=== PATIENT | female | born 1935 | race Asian ===

== ENCOUNTER 2020-08-04 09:44 | Inpatient (IN) | payer MEDICARE, OTHER, SELFPAY ==
[2020-08-04] VITALS (25 sets, daily range): BP systolic 108–179; BP diastolic 55–80; PULSE 55–78; RESP 14–27; TEMP 36.3–36.8; O2SAT 92–98; BMI 20.5
--- NOTE | 2020-08-04 | SCC_ITS ---
Procedure Done: Perc pinnine right hip 79.8 seconds of fluoroscopic guidance, for a cumulative dose of 7.52 mGy, was provided to Dr. Kaye by the radiology department. C-arm images of the RIGHT hip were saved for the patient's permanent record. GLADYS
--- NOTE | 2020-08-04 09:51 | ED_ITS ---
HPI - Fall General: Chief Complaint: Fall Stated Complaint: RIGHT SIDE PAIN POST GROUND LEVEL FALL Time Seen by Provider: 08/04/20 09:47 History of Present Illness: HPI Narrative: 85yo presents emergency room via EMS complaining of right hip pain. She fell last night her put her back into bed she has right groin and hip pain, right side pain since then. She is unable to bear weight or walk. EMS had bound her pelvis with a sheet prior to arrival. She denies striking her head she denies loss of consciousness. MD complaint: fall Onset (ago): hour(s) Fall from: standing Fall witnessed: yes, by family Place fall occurred: home Loss of consciousness: None Prolonged down time: unclear Context: history of frequent falls Location of injury: other (Left hip) Severity: severe Quality: sharp Associated symptoms-after fall: Denies abdominal pain, chest pain, confusion, difficulty walking, headache(s), hematuria, lightheadedness, neck pain, numbness, short of breath, vertigo or weakness Review of Systems Const: Denies: fever(s), chills, body aches, change in appetite, fatigue or malaise ENMT: Denies: throat pain, ear or mastoid pain, nasal discharge or nasal congestion Card: Denies: chest pain or lightheadedness Resp: Denies: dyspnea, productive cough or non-productive cough GI: Denies: abdominal pain : Denies: hematuria Musc: Denies: neck pain Skin/Breast: Denies: rash or pruritus Neuro: Denies: headache(s), difficulty walking, vertigo or confusion Physical Exam Const: COMMON NORMALS: no acute distress GENERAL APPEARANCE: cooperative and comfortable HENMT: COMMON NORMALS: normocephalic, atraumatic, hearing grossly normal bilaterally, external ears normal, EAC's normal, TM's normal bilaterally, Normal nasal mucous membranes and turbinates present, moist oral mucous membranes and oropharynx normal HEAD & SCALP: normocephalic and atraumatic NOSE: Normal nasal mucous membranes and turbinates present EXTERNAL EAR: Yes external ears normal EXTERNAL AUDITORY CANAL: EAC's normal TYMPANIC MEMBRANE: TM's normal bilaterally Eye: COMMON NORMALS: Equal, round and reactive pupils present, EOMs intact bilaterally, conjunctivae normal and no scleral icterus CONJUNCTIVA: Yes conjunctivae normal PUPIL: Yes Equal, round and reactive pupils present Neck/C-Spine: COMMON NORMALS: full ROM, no lymphadenopathy, supple and no JVD Lymph: LYMPHATIC: no lymphadenopathy noted and no lymphedema noted Resp: COMMON NORMALS: normal respiratory effort, No retractions, No use of accessory muscles and clear to auscultation bilaterally AUSCULTATION: clear to auscultation bilaterally Cardio: COMMON NORMALS: no JVD, regular rate, regular rhythm and No murmurs present (Cardio) RATE: regular rate RHYTHM: regular rhythm GI: COMMON NORMALS: Soft to palpation and No hepatosplenomegaly present AUSCULTATION: Yes normoactive bowel sounds PALPATION: Yes Soft to palpation, No Tenderness to palpation present (GI), No Guarding due to palpation present (GI) and Yes No hepatosplenomegaly present Extremity: COMMON NORMALS: normal to inspection, capillary refill normal, no clubbing, cyanosis or edema, no calf tenderness and no pedal edema Skin: COMMON NORMALS: no rashes or lesions noted GENERAL SKIN EXAM: no rashes or lesions noted Course Vital Signs: Vital signs: Vital Signs Temperature 98.2 F 08/04/20 11:56 Pulse Rate 70 08/04/20 11:56 Respiratory Rate 19 H 08/04/20 11:56 Blood Pressure 157/57 08/04/20 11:56 Pulse Oximetry 94 08/04/20 11:56 MDM - Fall MDM Narrative: Medical decision making narrative: Patient has transcervical fracture will admit. Chest x-ray shows what appears to be reticular-like interstitial changes we will swab her for Covid to be sure she has no Covid symptoms at this time. To be given IV fluids consult hospitalist and also discussed Dr. Kaye orders written Lab Data: Labs: Lab Results 08/04/20 08/04/20 08/04/20 Range/Units 10:16 10:16 11:05 WBC 5.3 (4.0-10.0) 10^3/ uL RBC 3.40 L (4.1-5.3) 10^6/u L Hgb 10.9 L (11.5-15.3) g/dL Hct 32.1 L (37.0-47.0) % MCV 94.4 (81-99) fL MCH 32.1 (28.0-34.0) pg MCHC 34.0 (30.0-36.0) g/dL RDW 11.5 L (12.1-15.1) % Plt Count 183 (130-400) 10^3/c mm MPV 10.7 H (7.4-10.4) fL Neut % (Auto) 67.1 % Lymph % (Auto) 19.3 % [place] % (Auto) 12.8 % Eos % (Auto) 0.0 % Baso % (Auto) 0.2 % Neut # (Auto) 3.58 (1.8-7.7) 10^3/u L Lymph # (Auto) 1.0 (0.8-4.8) 10^3/u L [place] # (Auto) 0.7 (0.2-0.9) 10^3/u L Eos # (Auto) 0.0 (0.0-0.8) 10^3/u L Baso # (Auto) 0.0 (0.0-0.1) 10^3/u L Nucleated RBC % (a uto) 0 % Nucleated RBCs # 0.0 /100WBC Sodium Cancelled Cancelled Potassium Cancelled Cancelled Chloride Cancelled Cancelled Carbon Dioxide Cancelled Cancelled Anion Gap Cancelled Cancelled BUN Cancelled Cancelled Creatinine Cancelled Cancelled GFR Calculation Cancelled Cancelled Glucose Cancelled Cancelled Calculated Osmolal ity Cancelled Cancelled Calcium Cancelled Cancelled Total Bilirubin Cancelled Cancelled AST Cancelled Cancelled ALT Cancelled Cancelled Alkaline Phosphata se Cancelled Cancelled Creatine Kinase Cancelled Cancelled Total Protein Cancelled Cancelled Albumin Cancelled Cancelled Globulin Cancelled Cancelled Urine Color (Yellow) Urine Appearance (CLEAR) Urine pH (5-7) Ur Specific Gravit y (1.005-1.030) Urine Protein (Negative) Urine Glucose (UA) (Normal) Urine Ketones (Negative) Urine Blood (Negative) Urine Nitrate (Negative) Urine Bilirubin (Negative) Urine Urobilinogen (Negative) mg/dL Ur Leukocyte Erika ase (Negative) Urine RBC (0-2) /hpf Urine WBC (0-5) /hpf Ur Squamous Epith Cells (0-5) /hpf Amorphous Sediment Urine Bacteria (NONE) /hpf 08/04/20 Range/Units 11:05 WBC (4.0-10.0) 10^3/ uL RBC (4.1-5.3) 10^6/u L Hgb (11.5-15.3) g/dL Hct (37.0-47.0) % MCV (81-99) fL MCH (28.0-34.0) pg MCHC (30.0-36.0) g/dL RDW (12.1-15.1) % Plt Count (130-400) 10^3/c mm MPV (7.4-10.4) fL Neut % (Auto) % Lymph % (Auto) % [place] % (Auto) % Eos % (Auto) % Baso % (Auto) % Neut # (Auto) (1.8-7.7) 10^3/u L Lymph # (Auto) (0.8-4.8) 10^3/u L [place] # (Auto) (0.2-0.9) 10^3/u L Eos # (Auto) (0.0-0.8) 10^3/u L Baso # (Auto) (0.0-0.1) 10^3/u L Nucleated RBC % (a uto) % Nucleated RBCs # /100WBC Sodium Potassium Chloride Carbon Dioxide Anion Gap BUN Creatinine GFR Calculation Glucose Calculated Osmolal ity Calcium Total Bilirubin AST ALT Alkaline Phosphata se Creatine Kinase Total Protein Albumin Globulin Urine Color Yellow (Yellow) Urine Appearance Sl hazy (CLEAR) Urine pH 5 (5-7) Ur Specific Gravit y 1.020 (1.005-1.030) Urine Protein 2+ H (Negative) Urine Glucose (UA) Norm (Normal) Urine Ketones 1+ H (Negative) Urine Blood Neg (Negative) Urine Nitrate Negative (Negative) Urine Bilirubin Neg (Negative) Urine Urobilinogen Norm (Negative) mg/dL Ur Leukocyte Erika ase Trace H (Negative) Urine RBC None (0-2) /hpf Urine WBC 25-40 H (0-5) /hpf Ur Squamous Epith Cells Rare (0-5) /hpf Amorphous Sediment Not Reportable Urine Bacteria 3+ H (NONE) /hpf Discharge Plan Discharge Patient Disposition: Admitted As Inpatient Admit Provider: Seth Womack Clinical Impression: Femur fracture, right, Hypertension, UTI (urinary tract infection), Emphysema lung, Hyperkalemia, COVID-19 Condition: Stable Coding Level of Care Code ED Studio Technician for Michel Hernandez
--- NOTE | 2020-08-04 09:55 | XRR_ITS ---
PROCEDURE INFORMATION: Exam: XR Chest, 1 View Exam date and time: 08/04/2020 10:34 AM Age: 85 years old Clinical indication: Injury or trauma; Fall; Blunt trauma (contusions or hematomas); Additional info: Dyspnea/cough TECHNIQUE: Imaging protocol: XR of the chest Views: 1 view. COMPARISON: No relevant prior studies available. FINDINGS: Lungs: Mildly increased interstitial markings diffusely with suspected underlying emphysema. No focal consolidation. Pleural space: No evidence of pleural effusion or pneumothorax. Heart/Mediastinum: Normal mediastinal contours. No cardiomegaly. Bones/joints: Unremarkable. XR/XR chest 1V portable [id number] IMPRESSION: Mild diffusely increased interstitial markings with suspected underlying emphysema. Superimposed mild infectious or inflammatory airways process not excluded. No consolidation or other acute abnormality appreciated.
--- NOTE | 2020-08-04 09:55 | XRR_ITS ---
PROCEDURE INFORMATION: Exam: XR Right Hip with Pelvis when Performed Exam date and time: 08/04/2020 10:34 AM Age: 85 years old Clinical indication: Injury or trauma; Fall; Blunt trauma (contusions or hematomas); Right; Hip; Additional info: Pain/fall - with pelvis TECHNIQUE: Imaging protocol: XR Right hip with pelvis when performed. Views: 2 or 3 views. COMPARISON: CT Abdomen/Pelvis Renal [id number] 07/13/2016 2:21 PM FINDINGS: Bones/joints: Acute appearing nondisplaced transverse fracture of the right femoral neck. Bones otherwise appear intact. No dislocation. Soft tissues: Unremarkable. XR/XR hip RT 2-3V wo/w pel* [id number] IMPRESSION: Acute nondisplaced right femoral neck fracture.
[2020-08-04 10:25] LABS: Basophils % 0.2 %; Hematocrit 32.1 % (37.0-47.0); Hemoglobin 10.9 g/dL (11.5-15.3); Lymphocytes % 19.3 %; Mean Corpuscular Hemoglobin 32.1 pg (28.0-34.0); Mean Corpuscular Volume 94.4 fL (81-99); Mean Platelet Volume 10.7 fL (7.4-10.4); Monocytes # 0.7 10^3/uL (0.2-0.9); Monocytes % 12.8 %; Neutrophils # 3.58 10^3/uL (1.8-7.7); Neutrophils % 67.1 %; Nucleated Red Blood Cells % 0 %; Platelet Count 183 10^3/cmm (130-400); Red Cell Distribution Width 11.5 % (12.1-15.1); White Blood Count 5.3 10^3/uL (4.0-10.0)
--- NOTE | 2020-08-04 11:05 | ECG_ITS ---
[facility] Test Date: 2020-08-04 Pat Name: Mira Nicholas Department: Room: 202 Gender: Female [employer] Operator: : [id number] Requested By: Monster Worley Order Number: [id number] Reading MD: DONTAE PARKS Measurements Intervals [place] Rate: 74 P: -30 CA: 145 QRS: -4 QRSD: 69 T: 37 QT: 396 QTc: 442 Interpretive Statements SINUS RHYTHM LOW QRS VOLTAGE IN PRECORDIAL LEADS [QRS DEFLECTION < 1.0 mV IN CHEST LEADS] PATTERN CONSISTENT WITH PULMONARY DISEASE Compared to ECG 07/13/2016 15:49:45 Low QRS voltage now present Ventricular premature complex(es) no longer present Electronically Signed On 08-04-2020 18:16:04 WARDROBE MISTRESS by DONTAE PARKS [id number]
[2020-08-04] MEDS: sodium chloride 0.9% 1,000 ML 999 ML IV (11:06)
[2020-08-04 11:31] LABS: Add Urine Microscopic? YES; Bilirubin Urine Neg (Negative); Blood Urine Neg (Negative); Glucose Urine UA Norm (Normal); Ketones Urine 1+ (Negative); Leukocyte Esterase Urine Trace (Negative); Nitrate Urine Negative (Negative); Protein Urine 2+ (Negative); Urine Appearance SL Hazy (CLEAR); Urine Color Yellow (Yellow); Urobilinogen Urine Norm (Negative); pH Urine 5 (5-7)
[2020-08-04 11:35] LABS: Add Urine Culture? Yes; Bacteria Urine 3+ /hpf; Squamous Epithelial Cell Urine RARE /hpf (0-5); WBC Urine 25-40 /hpf (0-5)
--- NOTE | 2020-08-04 11:44 | PM.HP ---
Providers/Chief Complaint Primary Care Provider: Dena Bro, AUTOMOBILE RENTAL AGENT-C Chief Complaint: RIGHT SIDE PAIN POST GROUND LEVEL FALL History of Present Illness Mira Nicholas is a 85 year old female with PMH of HTN was brought inby the after experiencing a fall Night.She was going to bathroom when she slipped and fell, she never felt dizzy, or lost copiousness.Post fall she is having rt groin pain.She deny any other complain. Upon arrival in the ER she was worked up for the above mentioned. XR Right Hip with Pelvis : Acute nondisplaced right femoral neck fracture Xray chest : Mild diffusely increased interstitial markings with suspected underlying emphysema. Superimposed mild infectious or inflammatory airways process not excluded. Urine analysis :Dirty. Er.Attending has notified . Review of Systems Const: Denies: fever(s), chills or diaphoresis Card: Denies: palpitations or edema Resp: Denies: dyspnea, productive cough or pain on inspiration GI: Denies: abdominal pain, nausea, vomiting, diarrhea or constipation Neuro: Denies: headache(s) Medications/Allergies Home Medications Medication Instructions Recorded Confirmed Last Taken Type amlodipine-benazepril See Rx Instructions .ROUTE .COMPLEX 08/04/20 08/04/20 Unknown History coenzyme Q10 [CoQ-10] 100 mg PO DAILY 08/04/20 08/04/20 Unknown History latanoprost 1 drp OPHTHALMIC (EYE) QPM 08/04/20 08/04/20 Unknown History magnesium 1 tab PO DAILY 08/04/20 08/04/20 Unknown History timolol maleate 1 drp OPHTHALMIC (EYE) BID 08/04/20 08/04/20 Unknown History Allergies Allergy/AdvReac Type Severity Reaction Status Date / Time No Known Allergies Allergy Verified 08/04/20 11:52 Vitals/I&O/Wt Last Vital Signs Temp 98.2 F 08/04/20 11:38 Pulse 70 08/04/20 11:38 Resp 19 H 08/04/20 11:38 BP 157/57 08/04/20 11:38 Pulse Ox 94 08/04/20 11:38 Weight last 48 hrs Weight 47.627 kg Physical Exam Const: COMMON NORMALS: patient oriented x3 HENMT: COMMON NORMALS: normocephalic and atraumatic HEAD & SCALP: atraumatic Chest: CHEST: Yes Symmetrical chest wall rise Resp: COMMON NORMALS: normal respiratory effort, No retractions and clear to auscultation bilaterally EFFORT & INSPECTION: Yes symmetric chest movement AUSCULTATION: clear to auscultation bilaterally Cardio: COMMON NORMALS: regular rate, regular rhythm, S1 normal heart sound present, S2 normal heart sound present, No gallops present (Cardio), No murmurs present (Cardio), No rub (Cardio) and Peripheral pulses 2+ throughout RATE: regular rate RHYTHM: regular rhythm HEART SOUNDS: S1 normal heart sound present and S2 normal heart sound present PERIPHERAL PULSES: Peripheral pulses 2+ throughout GI: COMMON NORMALS: Normal to inspection, nondistended, normoactive bowel sounds present, Soft to palpation, non-tender, No hepatosplenomegaly present and no masses AUSCULTATION: Yes normoactive bowel sounds PALPATION: Yes Soft to palpation and Yes No hepatosplenomegaly present RECTAL EXAM: deferred Extremity: COMMON NORMALS: no clubbing, cyanosis or edema and no pedal edema NARRATIVE EXTREMITY EXAM: Rt hip and groin tenderness Present, Rt thigh externally and laterally rotated Neuro: COMMON NORMALS: patient oriented x3 Urinary Catheter Management^: Dillard: Cath Placed During This Visit: yes Urinary Catheter Date of Insertion: 08/04/20 Urinary Catheter Time of Insertion: 10:40 Data : 08/04/20 10:16 08/04/20 11:33 CXR: I personally reviewed and interpreted this imaging study as follows: My impression: Chronic changes in line with emphysema as well as diffusely increased interstitial marking. Xray Ortho: I personally reviewed and interpreted this imaging study as follows: My impression: XR Right Hip with Pelvis : Non displaced rt femoral neck fracture A&P Assessment and plan (1) Femur fracture, right: XR Right Hip with Pelvis : Acute nondisplaced right femoral neck fracture. Pain control Ortho Consult Status: Acute (2) Hypertension: Continue Amlodipine 5 mg po daily Status: Acute (3) UTI (urinary tract infection): Continue Cef 1 gm q24 h daily Urine culture Status: Acute (4) Emphysema lung: Status: Acute Additional A&P Information DVT PPX: Lovenox 40 sc daily Code status :Full code Disposition :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
--- NOTE | 2020-08-04 11:53 | PC.PHAR ---
PT STATES SHE TAKES CARE OF HER OWN MEDICATIONS-PT STATES SHE IS SUPPOSE TO BE TAKING THE AMLODIPINE-BENAZEPRIL DAILY BUT STATES SHE ONLY TAKES PRN-PT STATES SHE LAST TOOK SOMETIME LAST WEEK-[facility] F[facility] [place] FOR BID AND HAS RX ON HOLD FROM [place] FOR ONCE A DAY-PT STATES SHE USES BOTH HER EYE DROPS ONLY IN THE PM-[facility] FILLED THE LATANOPROST 1 DROP QPM AND THE TIMOLOL FOR 1 DROP BID
[2020-08-04 12:13] LABS: Alanine Aminotransferase 11 U/L (0-33); Alkaline Phosphatase 75 IU/L (35-105); Blood Urea Nitrogen 37 mg/dL (8-23); Calcium 8.6 mg/dL (8.5-10.5); Carbon Dioxide 15 mmol/L (22-29); Chloride 102 mmol/L (98-107); Creatine Phosphokinase 134 U/L (26-192); Globulin 3.7 g/dL (1.3-4.6); Glucose 114 mg/dL (65-115); Osmolality Calculated 280 mOsm/kg (285-295); Sodium 130 mmol/L (136-145); Total Bilirubin 0.6 mg/dL (0.15-1.2); Total Protein 6.7 g/dL (6.6-8.7)
[2020-08-04 12:21] LABS: SARS Covid-2 Antigen Positive (Negative)
[2020-08-04 12:23] LABS: Anion Gap 18.3 (5-19); Aspartate Amino Transferase 32 U/L (0-32)
[2020-08-04 12:24] LABS: Potassium 5.3 mmol/L (3.5-5.1)
[2020-08-04] MEDS: morphine 4 mg/mL SDV 1 mL 2 MG IVP (14:19)
[2020-08-04] MEDS: ondansetron 2 mg/ML SDV 2 mL 4 MG IVP (14:20)
[2020-08-04] MEDS: D5-NS 0.45% + KCL 20 mEq 20 MEQ/1,000 ML BAG 100 MEQ IV (14:26)
--- NOTE | 2020-08-04 14:30 | P.CONIM_ITS ---
Providers/Reason For Consult Consulting Physican/Specialty*: Bill Kaye MD Reason for Consult*: Right femoral neck fracture Attending Physician: Seth Womack MD Primary Care Provider: SONYA Cristobal History of Present Illness History of Present Illness Mira Nicholas is a 85 year old female who slipped and fell in the bathroom last night with resulting pain in her right hip. She denies any head injury or loss of consciousness. She denies any previous history of hip pain. Since admission a rapid Covid antibody test came back as negative and she has been moved from the floor to the Covid unit. Review of Systems Const: Denies: fever(s), chills or body aches Resp: Denies: dyspnea, productive cough or non-productive cough Meds/Allergies Home Medications and Allergies Home Medications Medication Instructions Recorded Confirmed Last Taken Type amlodipine-benazepril See Rx Instructions .ROUTE .COMPLEX 08/04/20 08/04/20 Unknown History coenzyme Q10 [CoQ-10] 100 mg PO DAILY 08/04/20 08/04/20 Unknown History latanoprost 1 drp OPHTHALMIC (EYE) QPM 08/04/20 08/04/20 Unknown History magnesium 1 tab PO DAILY 08/04/20 08/04/20 Unknown History timolol maleate 1 drp OPHTHALMIC (EYE) BID 08/04/20 08/04/20 Unknown History Allergies Allergy/AdvReac Type Severity Reaction Status Date / Time No Known Allergies Allergy Verified 08/04/20 11:52 Vitals/I&O/Wt Last Vital Signs Temp 98.2 F 08/04/20 11:56 Pulse 70 08/04/20 11:56 Resp 19 H 08/04/20 11:56 BP 157/57 08/04/20 11:56 Pulse Ox 94 08/04/20 11:56 Weight last 48 hrs Weight 105 lb Physical Exam Narrative: EXAM NARRATIVE: The patient is on our Covid unit. She is complaining of severe pain in the right and hip. She sits with her right hip and knee flexed in her knee abducted over her body. She has exquisite pain with motion of the right hip. She has a palpable right dorsalis pedis pulse. Her sensation is intact to light touch in the right foot and she will move her toes. He has no upper extremity or left lower extremity tenderness with palpation or motion. Urinary Catheter Management^: Dillard: Cath Placed During This Visit: yes Urinary Catheter Date of Insertion: 08/04/20 Urinary Catheter Time of Insertion: 10:40 Data Imaging^: Xray Ortho: My impression: Patient has a nondisplaced mid cervical femoral neck fracture. Her bones otherwise have a normal trabecular pattern. A&P Assessment and plan (1) Nondisplaced fracture of neck of left femur: I discussed options with the patient. I told her that I would suggest percutaneous pinning to control her pain. This will allow her to be mobilized particularly if Covid symptoms increase this would be beneficial. I told her without surgery she will have continued pain require pain medications. She would need prolonged periods of time in bed which could be difficult and combating infection. I told her even with successful pinning there is a risk of nonunion, and malunion. I discussed risk of avascular necrosis seen with nondisplaced fractures of could this is a further procedures. I discussed risk of the hardware that could, in the process of healing, become prominent and require removal. I discussed the possibility of a future hip arthroplasty. She understands all of these and agrees to surgery. We will proceed to the OR as a room is available today. Status: Acute Coding Level of Care Code Acute Search Marketing Coordinator for Michel Hernandez Diagnoses Nondisplaced fracture of neck of left femur S72.002A
[2020-08-04] MEDS: cefTRIAXone 1,000 MG in sodium chloride 0.9% (plus) 50 ML 100 MG IV (14:44)
[2020-08-04] MEDS: dexamethasone 4 mg/mL INJ 6 MG IVP (14:48)
[2020-08-04] MEDS: fentaNYL 50 mcg/mL INJ 2mL IVP ×2 (15:50→16:52)
--- NOTE | 2020-08-04 16:11 | ANES.PREANE2 ---
Pre-Anesthetic Assessment Pre-Anesthetic Assessment: Height/Weight: Height 1.52 m Weight 47.627 kg Temp Pulse Resp BP Pulse Ox 98.2 F 67 17 172/74 96 08/04/20 11:56 08/04/20 16:02 08/04/20 16:02 08/04/20 16:02 08/04/20 16:02 Preop Diagnosis: Right femoral neck fracture Proposed Procedure: Operation Date: 08/04/20 16:30 Proposed Procedures p ORIF Femur(Right) - Bill Kaye MD Familial anesthetic complications: none Was Beta Amy taken within 24 hours: N/A Last intake: NPO > 8 hrs Social: Social History: No alcohol and No tobacco Exam: Pre-Anes Outpt Exam: alert, oriented x 3, clear to auscultation bilaterally and regular rate & rhythm Airway: Cervical ROM: WNL MP: 3 Dentition: Partials Pulmonary: Comments: COVID 19 + emphysema CV/HEM: CV/HEM: HTN : : UTI Anesthetic Plan: ASA status: 3 Anesthesia: General Risk of > 500 ml blood loss (7ml/kg in children): No Meds/Allergies Current Medications: Current Medications Generic Name Dose Route Start Last Admin Trade Name Freq PRN Reason Stop Dose Admin Dexamethasone 6 mg 08/04/20 12:30 08/04/20 14:48 Dexamethasone 4 Mg/Ml Inj IVP 6 mg Q24H KAITLIN Administration Enoxaparin Sodium 40 mg 08/04/20 12:30 08/04/20 15:14 Enoxaparin 40 Mg /0.4 Ml Syringe SUBCUT Not Given Q24H KAITLIN Fentanyl 50 mcg 08/04/20 15:34 08/04/20 15:50 Fentanyl 50 Mcg/ Ml Inj 2ml IVP 25 mcg Q10M PRN Administration Preop Pain Ceftriaxone Sodium 1,000 mg/ 50 mls @ 100 mls/ hr 08/04/20 12:00 08/04/20 14:44 Sodium Chloride IV 100 mls/hr Q24H KAITLIN Administration Protocol Potassium Chloride /Dextrose/Sod Cl 20 meq in 1,000 m ls @ 100 mls/hr 08/04/20 13:40 08/04/20 14:26 D5-Ns 0.45% + Vaibhav l 20 Meq IV 100 mls/hr .Q10H KAITLIN Administration Morphine Sulfate 2 mg 08/04/20 13:40 08/04/20 14:19 Morphine 4 Mg/Ml Sdv 1 Ml IVP 2 mg Q4H PRN Administration SEVERE PAIN Ondansetron HCl 4 mg 08/04/20 13:40 08/04/20 14:20 Ondansetron 2 Mg /Ml Sdv 2 Ml IVP 4 mg Q6H PRN Administration NAUSEA AND VOMITI NG Data Anesthesia CBC & Chem 7: 08/04/20 10:16 08/04/20 11:33 Other Labs: Laboratory Results - last 48 hr 08/04/20 08/04/20 08/04/20 10:16 10:16 11:05 WBC 5.3 RBC 3.40 L Hgb 10.9 L Hct 32.1 L MCV 94.4 MCH 32.1 MCHC 34.0 RDW 11.5 L Plt Count 183 MPV 10.7 H Neut % (Auto) 67.1 Lymph % (Auto) 19.3 [place] % (Auto) 12.8 Eos % (Auto) 0.0 Baso % (Auto) 0.2 Neut # (Auto) 3.58 Lymph # (Auto) 1.0 [place] # (Auto) 0.7 Eos # (Auto) 0.0 Baso # (Auto) 0.0 Nucleated RBC % (auto) 0 Nucleated RBCs # 0.0 Sodium Cancelled Cancelled Potassium Cancelled Cancelled Chloride Cancelled Cancelled Carbon Dioxide Cancelled Cancelled Anion Gap Cancelled Cancelled BUN Cancelled Cancelled Creatinine Cancelled Cancelled GFR Calculation Cancelled Cancelled Glucose Cancelled Cancelled Calculated Osmolality Cancelled Cancelled Calcium Cancelled Cancelled Total Bilirubin Cancelled Cancelled AST Cancelled Cancelled ALT Cancelled Cancelled Alkaline Phosphatase Cancelled Cancelled Creatine Kinase Cancelled Cancelled Total Protein Cancelled Cancelled Albumin Cancelled Cancelled Globulin Cancelled Cancelled Urine Color Urine Appearance Urine pH Ur Specific [place] Urine Protein Urine Glucose (UA) Urine Ketones Urine Blood Urine Nitrate Urine Bilirubin Urine Urobilinogen Ur Leukocyte Esterase Urine RBC Urine WBC Ur Squamous Epith Cells Amorphous Sediment Urine Bacteria SARS-CoV-2 Ag (Rapid) 08/04/20 08/04/20 08/04/20 11:05 11:33 11:33 WBC RBC Hgb Hct MCV MCH MCHC RDW Plt Count MPV Neut % (Auto) Lymph % (Auto) [place] % (Auto) Eos % (Auto) Baso % (Auto) Neut # (Auto) Lymph # (Auto) [place] # (Auto) Eos # (Auto) Baso # (Auto) Nucleated RBC % (auto) Nucleated RBCs # Sodium 130 L Potassium 5.3 H Chloride 102 Carbon Dioxide 15 L Anion Gap 18.3 BUN 37 H Creatinine 1.4 H GFR Calculation Not Reportable Glucose 114 Calculated Osmolality 280 L Calcium 8.6 Total Bilirubin 0.6 AST 32 ALT 11 Alkaline Phosphatase 75 Creatine Kinase 134 Total Protein 6.7 Albumin 3.0 L Globulin 3.7 Urine Color Yellow Urine Appearance Sl hazy Urine pH 5 Ur Specific [place] 1.020 Urine Protein 2+ H Urine Glucose (UA) Norm Urine Ketones 1+ H Urine Blood Neg Urine Nitrate Negative Urine Bilirubin Neg Urine Urobilinogen Norm Ur Leukocyte Esterase Trace H Urine RBC None Urine WBC 25-40 H Ur Squamous Epith Cells Rare Amorphous Sediment Not Reportable Urine Bacteria 3+ H SARS-CoV-2 Ag (Rapid) Positive H Cardiac Studies: No Data to Display
[2020-08-04] MEDS: morphine 4 mg/mL SDV 1 mL (16:15)
--- NOTE | 2020-08-04 16:36 | PC.NURSE ---
PT left floor with OR staff at 1545. Pt's Juan Daniel was notified when the pt left the floor. Pt was given morphine and zofran upon arriving to the floor. Her pain was slightly alleviated by leonides thomas. -Dillard bag to gravity drainage; draining clear yellow urine. -Pt's skin is clean dry and intact with no open areas. -18g IV started by EMS to left FA is patent. -Good pedal pulses on both sides. -Vital signs stable.
--- NOTE | 2020-08-04 18:00 | XR_ITS ---
WS: [id number] INTRAOPERATIVE TECHNIQUE: 2 Spot fluoroscopic images for intraoperative purposes. FLUOROSCOPY TIME: 79.8 seconds CLINICAL INFORMATION: OR PICS COMPARISON: None. FINDINGS: Cannulated screw fixation across the right femoral neck. Hardware appears in good position. XR/XR hip RT 1V wo/w pel [id number] IMPRESSION: Images obtained for intraoperative purposes.
--- NOTE | 2020-08-04 18:45 | PM.OP ---
Operative Report Date of procedure: August 04, 2020 Pre-op Diagnosis: Right femoral neck fracture, nondisplaced Post-op diagnosis: same Post-op Findings: Same Procedure Done: Chi kern right hip Implants: Jony ASNS 6.3 screws x 3 Pathology: none sent Anesthesia: MAC Estimated blood loss (mL): 2 Findings: Patient had a nondisplaced mid cervical right femoral neck Condition: stable Disposition: PACU Procedure: The patient was positioned on the fracture table with his right leg in traction. They were given sedation by the anesthesia service. The skin was infiltrated with approximately 10 cc of 0.5% Marcaine with epi solution. A timeout was performed. A small lateral stab wound was made just below the level of the greater trochanter with a scalpel blade. Under visit so fluoroscopy initial guide pin was driven from a central position just above the level of lesser trochanter into inferior neck and inferior head. Over this was passed an 6.3 mm [place] screw. A second pin was placed in the superior anterior position and a second screw placed. A third pin was placed in a posterior superior position and a third screw placed. Intraoperative fluoroscopy was used to verify hardware position. The wound was irrigated with saline. Deep tissues were closed with 3-0 Vicryl. A sterile dressing was applied. The patient was taken to postanesthesia unit in stable condition.
[2020-08-04] MEDS: flumazenil 0.1 mg/mL SDV 5mL 0.5 MG (18:55)
[2020-08-04] MEDS: chlorhexidine gluconate 0.12% Btl 473 mL 30 ML MUCOUS MEM (21:03)
[2020-08-04] MEDS: remdesivir 200 MG in sodium chloride 0.9% (100 ml) 100 ML 100 MG IV (21:04)
[2020-08-04] MEDS: sodium chloride 0.9% 1,000 ML 100 ML IV (21:04)
[2020-08-05] VITALS (18 sets, daily range): BP systolic 147–167; BP diastolic 68–77; PULSE 54–77; RESP 13–18; TEMP 35.7–36.9; O2SAT 93–97
[2020-08-05] MEDS: ipratropium-albuterol 3 mL Neb INHALATION ×7 (00:29→23:37)
[2020-08-05 04:20] LABS: Hematocrit 29.3 % (37.0-47.0); Hemoglobin 9.7 g/dL (11.5-15.3); Lymphocytes # 0.7 10^3/uL (0.8-4.8); Lymphocytes % 14.7 %; Mean Corpuscular HGB Conc 33.1 g/dL (30.0-36.0); Mean Corpuscular Hemoglobin 32.1 pg (28.0-34.0); Mean Platelet Volume 10.7 fL (7.4-10.4); Monocytes # 0.3 10^3/uL (0.2-0.9); Monocytes % 5.5 %; Neutrophils # 3.61 10^3/uL (1.8-7.7); Neutrophils % 78.9 %; Nucleated Red Blood Cells % 0 %; Platelet Count 169 10^3/cmm (130-400); Red Blood Count 3.02 10^6/uL (4.1-5.3); Red Cell Distribution Width 11.6 % (12.1-15.1); White Blood Count 4.6 10^3/uL (4.0-10.0)
[2020-08-05 04:31] LABS: Slide Review Slide Review Perform
[2020-08-05 05:05] LABS: INR 1.08 (0.8-1.2)
[2020-08-05 05:06] LABS: Procalcitonin 0.12 ng/mL (0-0.5); Thyroid Stimulating Hormone 0.31 uIU/mL (0.27-4.20)
[2020-08-05 05:17] LABS: Alanine Aminotransferase 23 U/L (0-33); Albumin Level 2.8 g/dL (3.5-5.2); Alkaline Phosphatase 139 IU/L (35-105); Anion Gap 16.8 (5-19); Aspartate Amino Transferase 63 U/L (0-32); Blood Urea Nitrogen 26 mg/dL (8-23); Calcium 7.7 mg/dL (8.5-10.5); Carbon Dioxide 16 mmol/L (22-29); Chloride 108 mmol/L (98-107); Glucose 202 mg/dL (65-115); Magnesium 1.6 mg/dL (1.7-2.3); Osmolality Calculated 293 mOsm/kg (285-295); Potassium 4.8 mmol/L (3.5-5.1); Sodium 136 mmol/L (136-145); Total Bilirubin 0.3 mg/dL (0.15-1.2)
[2020-08-05] MEDS: sodium chloride 0.9% 1,000 ML 100 ML IV ×2 (06:03→17:18)
[2020-08-05] MEDS: enoxaparin 30 mg/0.3 mL Syringe SUBCUT (06:03)
--- NOTE | 2020-08-05 07:29 | PM.PN ---
Subjective Subjective: Interval history: Patient was seen and examined this morning.She is participating with Physical therapy. Saturating well on 2ls oxygen [facility].Has remained afebrile. Tolerating diet well. Her other vitals and labs have been reviewed. Medications: Reviewed: Yes Vitals/I&O/Wt Last Vital Signs Temp 98.0 F 08/05/20 04:00 Pulse 70 08/05/20 04:19 Resp 16 08/05/20 04:11 BP 164/77 08/05/20 04:00 Pulse Ox 94 08/05/20 04:11 08/04/20 08/05/20 08/05/20 22:59 06:59 14:59 Intake Total 50 / 50 898.333 / 948.333 Output Total 1050 / 1050 1100 / 2150 Balance -1000 / -1000 -201.667 / -1201.667 Weight last 48 hrs Weight 47.627 kg Physical Exam Const: COMMON NORMALS: patient oriented x3 HENMT: COMMON NORMALS: normocephalic and atraumatic HEAD & SCALP: normocephalic and atraumatic Chest: CHEST: Yes Symmetrical chest wall rise Resp: COMMON NORMALS: normal respiratory effort, No retractions and clear to auscultation bilaterally EFFORT & INSPECTION: Yes symmetric chest movement AUSCULTATION: clear to auscultation bilaterally Cardio: COMMON NORMALS: regular rate, regular rhythm, S1 normal heart sound present, S2 normal heart sound present, No gallops present (Cardio), No murmurs present (Cardio), No rub (Cardio) and Peripheral pulses 2+ throughout RATE: regular rate RHYTHM: regular rhythm HEART SOUNDS: S1 normal heart sound present and S2 normal heart sound present PERIPHERAL PULSES: Peripheral pulses 2+ throughout GI: COMMON NORMALS: Normal to inspection, nondistended, normoactive bowel sounds present, Soft to palpation, non-tender, No hepatosplenomegaly present and no masses AUSCULTATION: Yes normoactive bowel sounds PALPATION: Yes Soft to palpation and Yes No hepatosplenomegaly present RECTAL EXAM: deferred Extremity: COMMON NORMALS: no clubbing, cyanosis or edema and no pedal edema NARRATIVE EXTREMITY EXAM: Right hip dressing clean and dry. Minimal pain with right hip motion. Minimal swelling thigh. DPA 2+ B/L equal Neuro: COMMON NORMALS: patient oriented x3 Urinary Catheter Management^: Dillard: Cath Placed During This Visit: yes Urinary Catheter Date of Insertion: 08/04/20 Urinary Catheter Time of Insertion: 10:40 Data : 08/05/20 03:30 08/05/20 03:30 A&P Assessment and plan (1) Respiratory failure with hypoxia: Respiratory failure with Hypoxia 2/2 COVID PNA Remdesivir 2/3 Days course Dexamethasone 6 mg I.V Daily Lovenox 30 mg sc daily Ascorbic acid Zinc Trend Dimer,ESR,CRP,Ferritin Cef 1 gm q24h daily Supplemental Oxygen as needed to maintain saturation greater then 90 % Status: Acute (2) Pneumonia due to COVID-19 virus: Status: Acute (3) Femur fracture, right: XR Right Hip with Pelvis : Acute nondisplaced right femoral neck fracture.S/P Perc pinnine right hip ( 06/04) Pain control Ortho Consult Status: Deleted (4) Hypertension: Continue Amlodipine 5 mg po daily Status: Acute (5) UTI (urinary tract infection): Continue Cef 1 gm q24 h daily Urine culture Status: Acute (6) Emphysema lung: Status: Acute Additional A&P Information DVT PPX: Lovenox 40 sc daily Code status :Full code Disposition :SNF Attestations Medical Necessity Statement*: Patient needs to be in hospital for the management of COVID PNA as well as Coding Level of Care Code Acute Criminalist for Michel Hernandez Diagnoses Respiratory failure with hypoxia J96.91 Pneumonia due to COVID-19 virus U07.1; J12.89 Femur fracture, right S72.91XA Hypertension I10 UTI (urinary tract infection) N39.0 Emphysema lung J43.9
[2020-08-05] MEDS: ascorbic acid 500 mg Tablet PO ×2 (09:19→17:16)
[2020-08-05] MEDS: zinc gluconate 50 mg Tablet PO (09:19)
[2020-08-05] MEDS: chlorhexidine gluconate 0.12% Btl 473 mL 30 ML MUCOUS MEM ×3 (09:23→21:10)
--- NOTE | 2020-08-05 09:43 | PM.PN ---
Subjective Subjective: Interval history: Patient complaining of being cold. Right hip pain much better. Vitals/I&O/Wt Last Vital Signs Temp 96.3 F L 08/05/20 07:36 Pulse 72 08/05/20 08:43 Resp 18 08/05/20 08:43 BP 164/77 08/05/20 07:36 Pulse Ox 93 08/05/20 08:43 08/04/20 08/05/20 08/05/20 22:59 06:59 14:59 Intake Total 50 / 50 898.333 / 948.333 Output Total 1050 / 1050 1100 / 2150 Balance -1000 / -1000 -201.667 / -1201.667 Weight last 48 hrs Weight 105 lb Physical Exam Narrative: EXAM NARRATIVE: Right hip dressing clean and dry. Minimal pain with right hip motion. Minimal swelling thigh Urinary Catheter Management^: Dillard: Cath Placed During This Visit: yes Urinary Catheter Date of Insertion: 08/04/20 Urinary Catheter Time of Insertion: 10:40 Data : 08/05/20 03:30 08/05/20 03:30 A&P Assessment and plan (1) Postoperative state: Patient may weight-bear as tolerated. Stable for discharge to group home per orthopedics. Status: Acute Attestations Medical Necessity Statement*: Okay for discharge per Ortho. Ultimate disposition per medicine. Coding Level of Care Code Acute Patient Transport Officer for Michel Hernandez Diagnoses Postoperative state Z98.890
[2020-08-05] MEDS: latanoprost 0.005% Op Soln 2.5 mL Btl 1 DROP EYE-BOTH (17:09)
[2020-08-05] MEDS: remdesivir 100 MG in sodium chloride 0.9% (100 ml) 100 ML IV (17:16)
[2020-08-05] MEDS: sennosides-docusate Tablet 2 TAB PO (17:16)
[2020-08-05] MEDS: HYDROcodone-acetaminophen 5-325 mg Tablet 1 TAB PO (17:16)
[2020-08-05] MEDS: timolol 0.5% Op Soln 5 mL Btl 1 DROP EYE-BOTH (17:21)
[2020-08-05] MEDS: amlodipine 10 mg Tablet PO (18:21)
[2020-08-05] MEDS: cefTRIAXone 1,000 MG in sodium chloride 0.9% (plus) 50 ML 100 MG IV (18:45)
--- NOTE | 2020-08-05 18:45 | PC.NURSE ---
Received bedside report on patient from Rhina Gonzalez RN. Assumed care at this time.
[2020-08-06] VITALS (14 sets, daily range): BP systolic 108–147; BP diastolic 47–89; PULSE 66–94; RESP 16–69; TEMP 36.6–36.7; O2SAT 89–96
[2020-08-06] MEDS: ipratropium-albuterol 3 mL Neb INHALATION ×5 (03:18→21:01)
[2020-08-06 04:25] LABS: Basophils % 0.1 %; Hemoglobin 9.5 g/dL (11.5-15.3); Lymphocytes % 9.8 %; Mean Corpuscular HGB Conc 33.9 g/dL (30.0-36.0); Mean Corpuscular Hemoglobin 32.3 pg (28.0-34.0); Mean Corpuscular Volume 95.2 fL (81-99); Mean Platelet Volume 10.9 fL (7.4-10.4); Monocytes # 1.2 10^3/uL (0.2-0.9); Neutrophils # 7.54 10^3/uL (1.8-7.7); Nucleated Red Blood Cells % 0 %; Platelet Count 212 10^3/cmm (130-400); Red Blood Count 2.94 10^6/uL (4.1-5.3); Red Cell Distribution Width 11.8 % (12.1-15.1); White Blood Count 9.8 10^3/uL (4.0-10.0)
[2020-08-06 04:40] LABS: Alanine Aminotransferase 17 U/L (0-33); Albumin Level 2.9 g/dL (3.5-5.2); Alkaline Phosphatase 123 IU/L (35-105); Anion Gap 19.5 (5-19); Aspartate Amino Transferase 33 U/L (0-32); Blood Urea Nitrogen 41 mg/dL (8-23); Calcium 8.4 mg/dL (8.5-10.5); Carbon Dioxide 14 mmol/L (22-29); Chloride 111 mmol/L (98-107); Glucose 259 mg/dL (65-115); Osmolality Calculated 309 mOsm/kg (285-295); Potassium 4.5 mmol/L (3.5-5.1); Sodium 140 mmol/L (136-145); Total Bilirubin 0.4 mg/dL (0.15-1.2)
[2020-08-06] MEDS: sodium chloride 0.9% 1,000 ML 100 ML IV (04:44)
[2020-08-06] MEDS: HYDROcodone-acetaminophen 5-325 mg Tablet 1 TAB PO ×3 (06:05→17:10)
[2020-08-06] MEDS: enoxaparin 30 mg/0.3 mL Syringe SUBCUT (06:05)
[2020-08-06] MEDS: ascorbic acid 500 mg Tablet PO ×2 (08:45→17:07)
[2020-08-06] MEDS: chlorhexidine gluconate 0.12% Btl 473 mL 30 ML MUCOUS MEM ×3 (08:45→17:07)
[2020-08-06] MEDS: amlodipine 10 mg Tablet PO (08:45)
[2020-08-06] MEDS: zinc gluconate 50 mg Tablet PO (08:45)
[2020-08-06] MEDS: sennosides-docusate Tablet 2 TAB PO ×2 (08:45→17:08)
[2020-08-06] MEDS: timolol 0.5% Op Soln 5 mL Btl 1 DROP EYE-BOTH ×2 (11:46→17:08)
--- NOTE | 2020-08-06 12:59 | CT_ITS ---
WS: [id number] CT HEAD TECHNIQUE: Noncontrast CT of the head obtained from the skullbase to the vertex. CLINICAL INFORMATION: eval cva COMPARISON: CT and MRI 2011 DLP: 697.[address] scans at [facility] use at least one of these dose optimization techniques: automat ed exposure control; mA and/or kV adjustment per patient size (includes targeted exams where dose is matched to clinical indication); or iterative reconstruction. FINDINGS: No evidence of intracranial hemorrhage or mass effect. Ventricular system and basal cisterns are brown nt. Moderate small vessel changes with moderate parenchymal volume loss. No extra-axial fluid collect ions. No evidence of mass or mass effect. Normal clemente-white differentiation. Paranasal sinuses and mastoid air cells are well aerated. .Normal visualized soft tissues. Intracrani al vascular calcification. CT/CT head wo con* [id number] IMPRESSION: 1. No evidence of intracranial hemorrhage or mass effect. 2. Moderate small vessel changes. Moderate parenchymal volume loss. 3. No acute intracranial findings.
[2020-08-06 13:20] LABS: Blood Gas Allen Test Pos; Blood Gas Operator Identificat MONRO; Blood Gas Sample Site Radial, left; Blood Gas Sample Type Arterial; Ionized Calcium Level - ABG 1.2 mmol/L (1.1-1.4); Oxygen Device NC; Potassium Level - ABG 4.5 mmol/L (3.5-5.0)
[2020-08-06 13:21] LABS: ABG PCO2 24.7 mmHg (35-45); ABG PH Result 7.41 (7.35-7.45); Alveolar-Arterial Oxygen Gradi 21.6 mmHg (5-10); Arterial Blood Gas Hematocrit 29.9 % (37-47); Carboxyhemoglobin 0.8 %THgb (0.4-20.1); HCO3 ABG 15.5 mmol/L (22-26); HGB O2 Sat 87.2 % (95-100); Methemoglobin 0.7 % (0.4-1.5); Oxygen Saturation ABG 88.6; Total Hemoglobin 9.8 g/dL (12-16)
[2020-08-06] MEDS: pantoprazole DR 40 mg Tablet PO (13:52)
[2020-08-06] MEDS: dexamethasone 4 mg/mL INJ 6 MG IVP (13:52)
[2020-08-06] MEDS: sodium chloride 0.9% 1,000 ML 75 ML IV (13:53)
--- NOTE | 2020-08-06 14:27 | P.PN_ITS ---
Subjective Subjective: Interval history: Patient reported to be confused since last night. Has been oriented x2, unknown past baseline or if she has any past history of dementia. Slow to respond to questions. Denies any current pain. Needing reorientation as to her surroundings. Patient saturation dropping to 89% on 4 L, requirement up to 5 L/min today Medications: Reviewed: Yes Vitals/I&O/Wt Last Vital Signs Temp 98.0 F 08/06/20 12:00 Pulse 70 08/06/20 13:26 Resp 24 H 08/06/20 13:26 BP 108/59 08/06/20 12:00 Pulse Ox 93 08/06/20 13:26 08/05/20 08/06/20 08/06/20 22:59 06:59 14:59 Intake Total 1360 / 1360 1120 / 2480 300 / 300 Output Total 200 / 200 675 / 875 Balance 1160 / 1160 445 / 1605 300 / 300 Physical Exam Narrative: EXAM NARRATIVE: GEN: Awake, oriented x2, needs frequent reorientation as to her surroundings. Does not recall how she got to the hospital. On much prompting she is able to tell me she may have had a fracture. 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 Urinary Catheter Management^: Dillard: Cath Placed During This Visit: yes Urinary Catheter Date of Insertion: 08/04/20 Urinary Catheter Time of Insertion: 10:40 Data : 08/06/20 03:40 08/06/20 03:40 Micro: Microbiology 08/04/20 11:05 Urine Culture - Final Urine,Clean Catch Escherichia coli A&P Assessment and plan (1) Respiratory failure with hypoxia: Respiratory failure with Hypoxia 2/2 COVID PNA Remdesivir started on August 04 plan for a 5-day course. Added dexamethasone 6mg IVP 08/06 Ascorbic acid , Zinc Trend Dimer,ESR,CRP,Ferritin Continue Ceftriaxone 1 gm q24h daily , started on 08/04 Continue Advair and Spiriva inhalation Will additionally cover for E.coli UTI Supplemental Oxygen as needed to maintain saturation greater then 90 % Status: Acute (2) Pneumonia due to COVID-19 virus: as above Status: Acute (3) Femur fracture, right: XR Right Hip with Pelvis : Acute nondisplaced right femoral neck fracture. S/P Perc pinning right hip ( 08/04) Pain control Status: Deleted (4) Hypertension: Continue Amlodipine 5 mg po daily Status: Acute (5) UTI (urinary tract infection): Continue Cef 1 gm q24 h daily Urine culture with Braden-S E/coli Status: Acute (6) Emphysema lung: Status: Acute (7) Acute encephalopathy: Acute encephalopathy as evidenced by patient confusion, disorientation. Unknown baseline mental status. Attempted calling patient's however got voicemail. Is likely to be metabolic in nature from current Covid pneumonia, UTI, recent surgery. Hospital delirium cannot be excluded. Check CT head to rule out acute CVA, though appears to be less likely given no focal motor deficits at this present time. Reduce hydrocodone to 1 tab po q8h prn Status: Acute Additional A&P Information DVT PPX: Lovenox 40 sc daily Code status :Full code Disposition :SNF when ready Attestations Medical Necessity Statement*: encephalopathy, resp failure with inc 02 requirements Coding Level of Care Code Acute Java Developer Consultant for Janag Fwd Diagnoses Respiratory failure with hypoxia J96.91 Pneumonia due to COVID-19 virus U07.1; J12.89 Femur fracture, right S72.91XA Hypertension I10 UTI (urinary tract infection) N39.0 Emphysema lung J43.9 Acute encephalopathy G93.40
[2020-08-06 14:39] LABS: Coronavirus Test Green County DETECTED
--- NOTE | 2020-08-06 16:38 | PC.RESP ---
Smoking Cessation information sent to patient.
[2020-08-06] MEDS: latanoprost 0.005% Op Soln 2.5 mL Btl 1 DROP EYE-BOTH (17:08)
[2020-08-06] MEDS: remdesivir 100 MG in sodium chloride 0.9% (100 ml) 100 ML IV (17:33)
[2020-08-06] MEDS: cefTRIAXone 1,000 MG in sodium chloride 0.9% (plus) 50 ML 100 MG IV (18:52)
[2020-08-06 19:17] LABS: Globulin 2.9 g/dL (1.3-4.6); Total Protein 5.7 g/dL (6.6-8.7)
[2020-08-06 19:36] LABS: Globulin 2.9 g/dL (1.3-4.6); Total Protein 5.8 g/dL (6.6-8.7)
[2020-08-07] VITALS (19 sets, daily range): BP systolic 105–152; BP diastolic 62–71; PULSE 62–95; RESP 14–22; TEMP 36.8–37.1; O2SAT 90–98
[2020-08-07 01:41] LABS: Add Urine Microscopic? NO
[2020-08-07 02:01] LABS: Bilirubin Urine Neg (Negative); Blood Urine Neg (Negative); Glucose Urine UA 1+ (Normal); Ketones Urine Negative (Negative); Leukocyte Esterase Urine Negative (Negative); Nitrate Urine Negative (Negative); Protein Urine 1+ (Negative); Specific Gravity, Urine 1.015 (1.005-1.030); Urine Appearance Clear (CLEAR); Urine Color Yellow (Yellow); Urobilinogen Urine Norm (Negative)
--- NOTE | 2020-08-07 04:00 | XR_ITS ---
WS: [id number] Exam: XR chest 1V portable [id number] Date/Time of Exam: 08/07/2020 4:00 AM Reason For Exam: f/up chest infiltrates Comparison 120 09/30/2020. Increasing airspace and interstitial infiltrates noted in the right lung as well as the mid and lower left lung. The lungs remain fully inflated. No pleural effusions. Normal cardiomediastinal structure s and bony elements. XR/XR chest 1V portable [id number] IMPRESSION: 1. Bilateral pulmonary infiltrates showing some increase since prior study.
[2020-08-07 05:17] LABS: Basophils % 0.1 %; Hematocrit 30.8 % (37.0-47.0); Hemoglobin 10.4 g/dL (11.5-15.3); Lymphocytes # 0.6 10^3/uL (0.8-4.8); Lymphocytes % 5.8 %; Mean Corpuscular HGB Conc 33.8 g/dL (30.0-36.0); Mean Corpuscular Hemoglobin 31.8 pg (28.0-34.0); Mean Corpuscular Volume 94.2 fL (81-99); Mean Platelet Volume 10.8 fL (7.4-10.4); Monocytes # 0.6 10^3/uL (0.2-0.9); Monocytes % 6.2 %; Neutrophils # 8.53 10^3/uL (1.8-7.7); Nucleated Red Blood Cells % 0 %; Platelet Count 229 10^3/cmm (130-400); Red Blood Count 3.27 10^6/uL (4.1-5.3); Red Cell Distribution Width 11.9 % (12.1-15.1); White Blood Count 9.8 10^3/uL (4.0-10.0)
[2020-08-07 05:50] LABS: C Reactive Protein 45.2 mg/L (0.0-4.9)
[2020-08-07] MEDS: enoxaparin 30 mg/0.3 mL Syringe SUBCUT (06:02)
[2020-08-07 06:15] LABS: Alanine Aminotransferase 16 U/L (0-33); Albumin Level 2.8 g/dL (3.5-5.2); Alkaline Phosphatase 115 IU/L (35-105); Anion Gap 17.4 (5-19); Aspartate Amino Transferase 35 U/L (0-32); Blood Urea Nitrogen 33 mg/dL (8-23); Calcium 8.6 mg/dL (8.5-10.5); Carbon Dioxide 16 mmol/L (22-29); Chloride 107 mmol/L (98-107); Glucose 195 mg/dL (65-115); Osmolality Calculated 295 mOsm/kg (285-295); Potassium 4.4 mmol/L (3.5-5.1); Sodium 136 mmol/L (136-145); Total Bilirubin 0.4 mg/dL (0.15-1.2); Total Protein 5.8 g/dL (6.6-8.7)
[2020-08-07 06:23] LABS: Ferritin 2253 ng/mL (15-150)
[2020-08-07] MEDS: sodium chloride 0.9% 1,000 ML 75 ML IV ×2 (06:40→20:55)
[2020-08-07] MEDS: ipratropium-albuterol 3 mL Neb INHALATION ×4 (09:19→20:12)
[2020-08-07] MEDS: zinc gluconate 50 mg Tablet PO (09:24)
[2020-08-07] MEDS: sennosides-docusate Tablet 2 TAB PO (09:25)
[2020-08-07] MEDS: HYDROcodone-acetaminophen 5-325 mg Tablet 1 TAB PO ×2 (09:25→20:49)
[2020-08-07] MEDS: chlorhexidine gluconate 0.12% Btl 473 mL 30 ML MUCOUS MEM (09:26)
[2020-08-07] MEDS: timolol 0.5% Op Soln 5 mL Btl 1 DROP EYE-BOTH ×2 (09:26→18:17)
[2020-08-07] MEDS: amlodipine 10 mg Tablet PO (09:26)
[2020-08-07] MEDS: ascorbic acid 500 mg Tablet PO (09:26)
[2020-08-07] MEDS: pantoprazole DR 40 mg Tablet PO (09:26)
--- NOTE | 2020-08-07 12:13 | PC.SOCIAL ---
*IMM update* Gave IMM update to pt's via phone 12:12pm 08/07/20. Understood.
[2020-08-07] MEDS: ondansetron 2 mg/ML SDV 2 mL 4 MG IVP (12:14)
--- NOTE | 2020-08-07 12:43 | PC.OT ---
OT TREATMENT ATTEMPTED. PATIENT IS SEATED IN CHAIR, EYES CLOSED, MOANING ABOUT HOW NAUSEATED SHE IS. SUGGESTED WASHING FACE TO HELP/CALM. SHE DECLINES. BASIN PLACED IN HER LAP IN CASE SHE VOMITED, CALL LIGHT AND WATER IN REACH. PATIENT WILL NOT EVEN OPEN EYES TO SEE WHERE THESE ITEMS ARE PLACED IN CASE SHE NEEDS THEM. NURSING INFORMED. OT TREATMENT TO BE ATTEMPTED AGAIN TOMORROW.
[2020-08-07] MEDS: dexamethasone 4 mg/mL INJ 6 MG IVP (13:25)
--- NOTE | 2020-08-07 15:16 | PM.PN ---
Subjective Subjective: Interval history: Continues with intermittent confusion, 02 requirement 4lpm, afebrile Medications: Reviewed: Yes Vitals/I&O/Wt Last Vital Signs Temp 98.2 F 08/07/20 08:00 Pulse 67 08/07/20 12:25 Resp 14 08/07/20 12:25 BP 129/62 08/07/20 12:25 Pulse Ox 91 08/07/20 12:25 08/07/20 08/07/20 08/07/20 06:59 14:59 22:59 Intake Total 1000 / 1420 240 / 240 Output Total 1450 / 1950 450 / 450 Balance -450 / -530 -210 / -210 Physical Exam Narrative: EXAM NARRATIVE: GEN: Awake, oriented x2, needs frequent reorientation as to her surroundings. 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 motor neuro deficits, intermittent confusion +, oriented x 2, follows simple commands Urinary Catheter Management^: Dillard: Cath Placed During This Visit: yes Urinary Catheter Date of Insertion: 08/04/20 Urinary Catheter Time of Insertion: 10:40 Data : 08/07/20 04:45 08/07/20 04:45 Micro: Microbiology 08/04/20 11:05 Urine Culture - Final Urine,Clean Catch Escherichia coli A&P Assessment and plan (1) Respiratory failure with hypoxia: Respiratory failure with Hypoxia 2/2 COVID PNA Remdesivir started on August 04, day 4/5 today Added dexamethasone 6mg IVP 08/06 Ascorbic acid , Zinc Trend D Dimer,CRP,Ferritin Continue Ceftriaxone 1 gm q24h daily , started on 08/04 , add azithromycin x 3 days Continue Advair and Spiriva inhalation Will additionally cover for E.coli UTI Supplemental Oxygen as needed to maintain saturation greater then 92 % Status: Acute (2) Pneumonia due to COVID-19 virus: as above Status: Acute (3) Femur fracture, right: XR Right Hip with Pelvis : Acute nondisplaced right femoral neck fracture.S/P Perc pinning right hip ( 08/04) Pain control with opiates currently, will reduce frequency to q12h, d/c prn morphine Add tylenol 650mg q6h prn and toradol BID with close monitoring of kidney function. lidocaine patch locally Status: Deleted (4) Hypertension: Continue Amlodipine 10 mg po daily Status: Acute (5) UTI (urinary tract infection): Continue Ceftriaxone 1 gm q24 h daily Urine culture with Braden-S E/coli Status: Acute (6) Emphysema lung: Status: Acute (7) Acute encephalopathy: Acute encephalopathy as evidenced by patient confusion, disorientation. Confirmed from that this is not her baseline. She is usually alert and oriented x3. Is likely to be metabolic in nature from current Covid pneumonia, UTI, opiates, high dose steroids , recent surgery. Hospital delirium cannot be excluded. CT head without CVA Status: Acute Additional A&P Information DVT PPX: Lovenox 30 sc daily Code status :Full code Disposition :SNF when ready Attestations Medical Necessity Statement*: hypoxic respiratiry failure 2/2 COVID PNA, on iv steroids and remdisivir, needs optimization Coding Level of Care Code Acute Supervisor Scrap Preparation for Chg Fwd Diagnoses Respiratory failure with hypoxia J96.91 Pneumonia due to COVID-19 virus U07.1; J12.89 Femur fracture, right S72.91XA Hypertension I10 UTI (urinary tract infection) N39.0 Emphysema lung J43.9 Acute encephalopathy G93.40
[2020-08-07] MEDS: remdesivir 100 MG in sodium chloride 0.9% (100 ml) 100 ML IV (17:27)
[2020-08-07] MEDS: latanoprost 0.005% Op Soln 2.5 mL Btl 1 DROP EYE-BOTH (18:17)
[2020-08-07] MEDS: cefTRIAXone 1,000 MG in sodium chloride 0.9% (plus) 50 ML 100 MG IV (18:53)
[2020-08-08] VITALS (35 sets, daily range): BP systolic 113–155; BP diastolic 61–81; PULSE 64–84; RESP 13–28; TEMP 36.4–36.8; O2SAT 81–99
[2020-08-08] MEDS: ipratropium-albuterol 3 mL Neb INHALATION ×6 (00:03→21:02)
[2020-08-08 04:45] LABS: Basophils % 0.1 %; Hematocrit 28.9 % (37.0-47.0); Lymphocytes # 0.5 10^3/uL (0.8-4.8); Lymphocytes % 6.7 %; Mean Corpuscular HGB Conc 34.6 g/dL (30.0-36.0); Mean Corpuscular Hemoglobin 32.5 pg (28.0-34.0); Mean Corpuscular Volume 93.8 fL (81-99); Mean Platelet Volume 11.5 fL (7.4-10.4); Monocytes # 0.5 10^3/uL (0.2-0.9); Monocytes % 6.5 %; Neutrophils # 6.73 10^3/uL (1.8-7.7); Neutrophils % 85.6 %; Nucleated Red Blood Cells % 0 %; Platelet Count 238 10^3/cmm (130-400); Red Blood Count 3.08 10^6/uL (4.1-5.3); Red Cell Distribution Width 11.9 % (12.1-15.1); White Blood Count 7.9 10^3/uL (4.0-10.0)
[2020-08-08 05:14] LABS: D Dimer 2.27 ug/mIFEU (0-0.59)
[2020-08-08 05:25] LABS: Alanine Aminotransferase 16 U/L (0-33); Albumin Level 2.7 g/dL (3.5-5.2); Alkaline Phosphatase 109 IU/L (35-105); Anion Gap 17.3 (5-19); Aspartate Amino Transferase 30 U/L (0-32); Blood Urea Nitrogen 31 mg/dL (8-23); Calcium 8.2 mg/dL (8.5-10.5); Carbon Dioxide 18 mmol/L (22-29); Chloride 105 mmol/L (98-107); Globulin 2.2 g/dL (1.3-4.6); Glucose 247 mg/dL (65-115); Osmolality Calculated 297 mOsm/kg (285-295); Potassium 4.3 mmol/L (3.5-5.1); Sodium 136 mmol/L (136-145); Total Bilirubin 0.4 mg/dL (0.15-1.2); Total Protein 4.9 g/dL (6.6-8.7)
[2020-08-08 05:45] LABS: C Reactive Protein 33.4 mg/L (0.0-4.9)
[2020-08-08 06:02] LABS: Ferritin 2090 ng/mL (15-150)
[2020-08-08] MEDS: enoxaparin 30 mg/0.3 mL Syringe SUBCUT (06:33)
[2020-08-08] MEDS: lidocaine 5% Patch 1 PATCH TOPICAL (10:14)
[2020-08-08] MEDS: amlodipine 10 mg Tablet PO (10:16)
[2020-08-08] MEDS: azithromycin 250 mg Tablet 500 MG PO (10:16)
--- NOTE | 2020-08-08 13:03 | PC.NURSE ---
pt refused to take morning PO medications several times this am stating maybe later , i am tired. Did eventually get pt to take PO azithromycin and amlodipine but pt refused other morning PO meds.
--- NOTE | 2020-08-08 13:06 | PC.NURSE ---
pt up to chair for lunch
[2020-08-08] MEDS: sodium chloride 0.9% 1,000 ML 75 ML IV (13:17)
[2020-08-08] MEDS: dexamethasone 4 mg/mL INJ 6 MG IVP (13:18)
[2020-08-08] MEDS: HYDROcodone-acetaminophen 5-325 mg Tablet 1 TAB PO (16:13)
[2020-08-08] MEDS: remdesivir 100 MG in sodium chloride 0.9% (100 ml) 100 ML IV (17:40)
--- NOTE | 2020-08-08 17:56 | PM.PN ---
Subjective Subjective: Interval history: mentation better today, oriented x 3 when seen in the evening reports poor appetite and lethargy today Medications: Reviewed: Yes Vitals/I&O/Wt Last Vital Signs Temp 97.5 F L 08/08/20 04:00 Pulse 72 08/08/20 15:12 Resp 16 08/08/20 15:08 BP 128/67 08/08/20 16:00 Pulse Ox 99 08/08/20 15:08 08/08/20 08/08/20 08/08/20 06:59 14:59 22:59 Intake Total 284 / 7035 1120 / 1120 Output Total 750 / 1850 400 / 400 375 / 775 Balance -466 / 5185 720 / 720 -375 / 345 Physical Exam Narrative: EXAM NARRATIVE: GEN: Awake, oriented x3, needs frequent reorientation as to her surroundings. 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: no focal motor neuro deficits Urinary Catheter Management^: Dillard: Cath Placed During This Visit: yes, but has since been removed by the nurse Reason for Continuing Indwelling Catheter: Decision to DC Catheter Urinary Catheter Date of Insertion: 08/04/20 Urinary Catheter Time of Insertion: 10:40 Date Urinary Catheter Removed: 08/07/20 Time Urinary Catheter Discontinued: 18:22 Data : 08/08/20 03:27 08/08/20 03:27 A&P Assessment and plan (1) Respiratory failure with hypoxia: Respiratory failure with Hypoxia 2/2 COVID PNA Remdesivir started on August 04, day 5 today Continue dexamethasone 6mg IVP 08/06- Ascorbic acid , Zinc Trend D Dimer,CRP,Ferritin Continue Ceftriaxone 1 gm q24h daily , started on 08/04 , added azithromycin x 3 days Continue Advair and Spiriva inhalation Will additionally cover for E.coli UTI Supplemental Oxygen as needed to maintain saturation greater then 92 % , requirements stable today at 4-5 lpm Status: Acute (2) Pneumonia due to COVID-19 virus: as above Status: Acute (3) Femur fracture, right: XR Right Hip with Pelvis : Acute nondisplaced right femoral neck fracture.S/P Perc pinning right hip ( 08/04) Pain control with opiates currently, will reduce frequency to q12h, d/c prn morphine Add tylenol 650mg q6h prn and toradol BID with close monitoring of kidney function. lidocaine patch locally Status: Deleted (4) Hypertension: Continue Amlodipine 10 mg po daily Status: Acute (5) UTI (urinary tract infection): Continue Ceftriaxone 1 gm q24 h daily Urine culture with Braden-S E/coli Status: Acute (6) Emphysema lung: Status: Acute (7) Acute encephalopathy: Acute encephalopathy as evidenced by patient confusion, disorientation. Confirmed from that this is not her baseline. She is usually alert and oriented x3. Is likely to be metabolic in nature from current Covid pneumonia, UTI, opiates, high dose steroids , recent surgery. Hospital delirium cannot be excluded. CT head without CVA Status: Acute Additional A&P Information DVT PPX: Lovenox 30 sc daily Code status :Full code Disposition :SNF when ready Attestations Medical Necessity Statement*: Hypoxic resp failure, awaiting optimization of respiratory status , Dispo planning Coding Level of Care Code Acute Case Management Rn for [facility] Fwd Diagnoses Respiratory failure with hypoxia J96.91 Pneumonia due to COVID-19 virus U07.1; J12.89 Femur fracture, right S72.91XA Hypertension I10 UTI (urinary tract infection) N39.0 Emphysema lung J43.9 Acute encephalopathy G93.40
[2020-08-08] MEDS: cefTRIAXone 1,000 MG in sodium chloride 0.9% (plus) 50 ML 100 MG IV (18:51)
[2020-08-08] MEDS: ketorolac 10 mg Tablet PO (20:28)
[2020-08-08] MEDS: chlorhexidine gluconate 0.12% Btl 473 mL 30 ML MUCOUS MEM (20:28)
[2020-08-09] VITALS (32 sets, daily range): BP systolic 115–155; BP diastolic 60–86; PULSE 66–115; RESP 13–40; TEMP 36.7; O2SAT 88–98
[2020-08-09] MEDS: ipratropium-albuterol 3 mL Neb INHALATION ×6 (00:37→21:24)
[2020-08-09 04:22] LABS: Hematocrit 28.2 % (37.0-47.0); Hemoglobin 9.7 g/dL (11.5-15.3); Lymphocytes # 0.6 10^3/uL (0.8-4.8); Lymphocytes % 7.8 %; Mean Corpuscular HGB Conc 34.4 g/dL (30.0-36.0); Mean Corpuscular Hemoglobin 31.8 pg (28.0-34.0); Mean Corpuscular Volume 92.5 fL (81-99); Mean Platelet Volume 10.9 fL (7.4-10.4); Monocytes # 0.4 10^3/uL (0.2-0.9); Monocytes % 5.3 %; Neutrophils # 6.72 10^3/uL (1.8-7.7); Neutrophils % 85.4 %; Nucleated Red Blood Cells % 0 %; Platelet Count 254 10^3/cmm (130-400); Red Blood Count 3.05 10^6/uL (4.1-5.3); Red Cell Distribution Width 11.7 % (12.1-15.1); White Blood Count 7.9 10^3/uL (4.0-10.0)
[2020-08-09 04:56] LABS: D Dimer 2.34 ug/mIFEU (0-0.59)
[2020-08-09 05:00] LABS: Alanine Aminotransferase 15 U/L (0-33); Albumin Level 2.5 g/dL (3.5-5.2); Alkaline Phosphatase 101 IU/L (35-105); Anion Gap 16.1 (5-19); Aspartate Amino Transferase 23 U/L (0-32); Blood Urea Nitrogen 29 mg/dL (8-23); Calcium 8.2 mg/dL (8.5-10.5); Carbon Dioxide 18 mmol/L (22-29); Chloride 104 mmol/L (98-107); Globulin 2.9 g/dL (1.3-4.6); Glucose 262 mg/dL (65-115); Osmolality Calculated 293 mOsm/kg (285-295); Potassium 4.1 mmol/L (3.5-5.1); Sodium 134 mmol/L (136-145); Total Bilirubin 0.4 mg/dL (0.15-1.2); Total Protein 5.4 g/dL (6.6-8.7)
[2020-08-09 05:12] LABS: NT Pro B Type Natriuretic Pept 792 pg/mL (0-450)
[2020-08-09] MEDS: enoxaparin 30 mg/0.3 mL Syringe SUBCUT (06:05)
[2020-08-09 06:25] LABS: C Reactive Protein 25.5 mg/L (0.0-4.9)
--- NOTE | 2020-08-09 09:13 | PC.SOCIAL ---
Im information provided and explained. RT Kaia to deliver the copy and explain in person. Updated chart copy.
[2020-08-09] MEDS: azithromycin 250 mg Tablet 500 MG PO (10:08)
[2020-08-09] MEDS: ascorbic acid 500 mg Tablet PO ×2 (10:09→18:09)
[2020-08-09] MEDS: pantoprazole DR 40 mg Tablet PO (10:09)
[2020-08-09] MEDS: zinc gluconate 50 mg Tablet PO (10:09)
[2020-08-09] MEDS: ketorolac 10 mg Tablet PO (10:09)
[2020-08-09] MEDS: amlodipine 10 mg Tablet PO (10:09)
[2020-08-09] MEDS: sennosides-docusate Tablet 2 TAB PO ×2 (10:09→18:09)
[2020-08-09] MEDS: lidocaine 5% Patch 1 PATCH TOPICAL (10:10)
[2020-08-09] MEDS: timolol 0.5% Op Soln 5 mL Btl 1 DROP EYE-BOTH ×2 (10:11→18:10)
[2020-08-09] MEDS: chlorhexidine gluconate 0.12% Btl 473 mL 30 ML MUCOUS MEM ×3 (10:11→18:10)
[2020-08-09] MEDS: dexamethasone 4 mg/mL INJ 6 MG IVP (14:20)
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
--- NOTE | 2020-08-09 14:49 | CT_ITS ---
WS: [id number] CTA OF THE CHEST WITH PULMONARY EMBOLISM PROTOCOL TECHNIQUE: High-resolution contrast enhanced CTA of the chest with coronal and sagittal reformatted i mages with pulmonary embolism protocol. MIP images are also reviewed. CLINICAL INFORMATION: increasing 02 requirements, COVID, elevted D dimer ?PE COMPARISON: None. DLP: 429.[address] scans at [facility] use at least one of these dose optimization techniques: automat ed exposure control; mA and/or kV adjustment per patient size (includes targeted exams where dose is matched to clinical indication); or iterative reconstruction. FINDINGS: Shallow inspiration. Proximal main pulmonary arteries are normal. A few tiny filling defects in the r ight middle lobe segmental and subsegmental pulmonary artery consistent with pulmonary embolus. Esperanza l caliber thoracic aorta. Aortic calcification. Small right and tiny left pleural effusions with comp ressive atelectasis in the lung bases. Hazy bilateral groundglass infiltrates in both perihilar regions and right greater than left upper lo bes. Findings consistent with Covid19 pneumonia. Normal adrenal glands. Hypertrophic changes thoracic spine. CT/CT angio chest PE protcl [id number] IMPRESSION: 1. A few tiny filling defects in the right middle lobe subsegmental and subseg mental pulmonary arteries suspicious for pulmonary embolus. Proximal main pulmo nary arteries are patent. 2. Shallow inspiration. 3. Small right and tiny left pleural effusion with compressive atelectasis in the lung bases. 4. Bilateral diffuse hazy groundglass infiltrates consistent with COVID19 pneu monia. Notified Caitlin Mcarthur MD at 08/09/2020 4:45 PM.
--- NOTE | 2020-08-09 14:56 | PC.OT ---
OT TREATMENT ATTEMPTED THIS P.M. PATIENT IS IN BED AND C/O FATIGUE. OFFERED GROOMING AND UE EXERCISES. PATIENT REPORTS NOT NOW, I'M TOO TIRED . TREATMENT TO BE ATTEMPTED AGAIN TOMORROW.
[2020-08-09] MEDS: iodixanol 320 mg/mL 100mL Btl IV (16:03)
[2020-08-09] MEDS: enoxaparin 60 mg/0.6 mL Syringe 50 MG SUBCUT (18:09)
[2020-08-09] MEDS: latanoprost 0.005% Op Soln 2.5 mL Btl 1 DROP EYE-BOTH (18:10)
[2020-08-09] MEDS: cefTRIAXone 1,000 MG in sodium chloride 0.9% (plus) 50 ML 100 MG IV (18:10)
[2020-08-10] VITALS (26 sets, daily range): BP systolic 109–156; BP diastolic 60–87; PULSE 62–86; RESP 13–22; TEMP 35.7–36.6; O2SAT 92–98
[2020-08-10] MEDS: ipratropium-albuterol 3 mL Neb INHALATION ×4 (00:30→20:13)
[2020-08-10] MEDS: HYDROcodone-acetaminophen 5-325 mg Tablet 1 TAB PO (04:51)
[2020-08-10] MEDS: enoxaparin 60 mg/0.6 mL Syringe 50 MG SUBCUT ×2 (06:13→17:02)
[2020-08-10] MEDS: pantoprazole DR 40 mg Tablet PO (08:53)
[2020-08-10] MEDS: azithromycin 250 mg Tablet 500 MG PO (08:53)
[2020-08-10] MEDS: zinc gluconate 50 mg Tablet PO (08:54)
[2020-08-10] MEDS: sennosides-docusate Tablet 2 TAB PO ×2 (08:54→17:03)
[2020-08-10] MEDS: chlorhexidine gluconate 0.12% Btl 473 mL 30 ML MUCOUS MEM ×2 (08:54→21:14)
[2020-08-10] MEDS: ascorbic acid 500 mg Tablet PO ×2 (08:54→17:03)
[2020-08-10] MEDS: lidocaine 5% Patch 1 PATCH TOPICAL ×2 (08:54→21:19)
[2020-08-10] MEDS: amlodipine 10 mg Tablet PO (08:54)
[2020-08-10] MEDS: timolol 0.5% Op Soln 5 mL Btl 1 DROP EYE-BOTH ×2 (08:55→17:05)
--- NOTE | 2020-08-10 10:03 | NUR.SHIFT ---
Pt very sleepy. Took verbal and light touch before pt would respond to questions. Pt not wanting to open eyes, eat breakfast, or get up to chair. Pt states, I'm just very sleepy. Please let me sleep. I didn't sleep all night. VSS, A&Ox4.
--- NOTE | 2020-08-10 12:38 | PC.OT ---
Patient attempted two times and refused, she did participate with physical therapy but stated she was too tired after it to participate more. Patient had dietary concerns noted, as she is a vegatarian, nursing was notified.
[2020-08-10] MEDS: dexamethasone 4 mg/mL INJ 6 MG IVP (14:12)
--- NOTE | 2020-08-10 14:26 | P.PN_ITS ---
Subjective Subjective: Interval history: Discovered to have pulmonary embolism on CTA yesterday. Oxygen requirement improving to 4 L/min. Patient is alert awake and oriented, no longer encephalopathic, however reports significant fatigue. Medications: Reviewed: Yes Vitals/I&O/Wt Last Vital Signs Temp 96.2 F L 08/10/20 04:00 Pulse 68 08/10/20 12:00 Resp 15 08/10/20 12:00 BP 138/65 08/10/20 12:00 Pulse Ox 97 08/10/20 12:00 08/09/20 08/10/20 08/10/20 22:59 06:59 14:59 Intake Total 60 / 60 50 / 110 120 / 120 Output Total 350 / 1300 425 / 1725 400 / 400 Balance -290 / -1240 -375 / -1615 -280 / -280 Physical Exam Narrative: EXAM NARRATIVE: GEN: Awake, alert and oriented, reports fatigue CVS: S1S2 N RS: CTA B/L Abd: Soft, nt/nd , bs+ RADIOLOGY TEACHER: no focal neuro deficits Urinary Catheter Management^: Dillard: Cath Placed During This Visit: yes, but has since been removed by the nurse Reason for Continuing Indwelling Catheter: Decision to DC Catheter Urinary Catheter Date of Insertion: 08/04/20 Urinary Catheter Time of Insertion: 10:40 Date Urinary Catheter Removed: 08/07/20 Time Urinary Catheter Discontinued: 18:22 Data : 08/09/20 03:54 08/09/20 03:54 A&P Assessment and plan (1) Respiratory failure with hypoxia: Respiratory failure with Hypoxia 2/2 COVID PNA s/p Remdesivir August 04-Aug 08 Continue dexamethasone 6mg IVP 08/06- Ascorbic acid , Zinc Stable D dimer at 2.9 CRP 45--> 25 Continue Ceftriaxone 1 gm q24h daily , started on 08/04 , added azithromycin x 3 days , plan to complete total 7 days course Continue Advair and Spiriva inhalation Ceftriaxone will additionally cover for E.coli UTI Supplemental Oxygen as needed to maintain saturation greater then 92 % Check CTA chest given increasing 02 requirements, + D dimer though this may be related to post op state. Last CXR had shown worsening infiltrates B/L. Continue ppx dose lovenox in the interim Status: Acute (2) Pneumonia due to COVID-19 virus: as above Status: Acute (3) Femur fracture, right: XR Right Hip with Pelvis : Acute nondisplaced right femoral neck fracture.S/P Perc pinning right hip ( 08/04) Pain control with opiates currently, mental status appears to be improving with reudcing opiate dosing. Add tylenol 650mg q6h prn and toradol BID prn with close monitoring of kidney function. lidocaine patch locally to hip Status: Deleted (4) Hypertension: Continue Amlodipine 10 mg po daily Status: Acute (5) UTI (urinary tract infection): s/p Ceftriaxone 1 gm q24 h daily x 5 days Urine culture with Braden-S E/coli Status: Acute (6) Emphysema lung: Status: Acute (7) Acute encephalopathy: Acute encephalopathy as evidenced by patient confusion, disorientation. Confirmed from that this is not her baseline. She is usually alert and oriented x3. Is likely to be metabolic in nature from current Covid pneumonia, UTI, opiates, high dose steroids , recent surgery. Hospital delirium cannot be excluded. CT head without CVA Mental status is improving today, patient more awake and alert compared to 48 hrs ago Status: Acute (8) Pulmonary embolism: Started on full dose lovenox, transition to po Eliquis on discharge Status: Acute Additional A&P Information DVT PPX: Lovenox 30 sc daily Code status :Full code Disposition :SNF when ready Updates discussed with Attestations Medical Necessity Statement*: ongoing need for respiratory optimization, COVID ARDS Coding Level of Care Code Acute Supervisor Chassis Assembly for g Fwd Diagnoses Respiratory failure with hypoxia J96.91 Pneumonia due to COVID-19 virus U07.1; J12.89 Femur fracture, right S72.91XA Hypertension I10 UTI (urinary tract infection) N39.0 Emphysema lung J43.9 Acute encephalopathy G93.40 Pulmonary embolism I26.99
[2020-08-10] MEDS: latanoprost 0.005% Op Soln 2.5 mL Btl 1 DROP EYE-BOTH (17:05)
[2020-08-10] MEDS: cefTRIAXone 1,000 MG in sodium chloride 0.9% (plus) 50 ML 100 MG IV (18:09)
[2020-08-11] VITALS (12 sets, daily range): BP systolic 141–152; BP diastolic 75–76; PULSE 61–71; RESP 14–18; TEMP 36.6–37; O2SAT 93–97
[2020-08-11 05:02] LABS: Basophils % 0.1 %; Hematocrit 28.8 % (37.0-47.0); Hemoglobin 10.1 g/dL (11.5-15.3); Lymphocytes # 0.5 10^3/uL (0.8-4.8); Mean Corpuscular HGB Conc 35.1 g/dL (30.0-36.0); Mean Corpuscular Hemoglobin 32.6 pg (28.0-34.0); Mean Corpuscular Volume 92.9 fL (81-99); Mean Platelet Volume 11.7 fL (7.4-10.4); Monocytes # 0.4 10^3/uL (0.2-0.9); Monocytes % 6.4 %; Neutrophils % 83.2 %; Nucleated Red Blood Cells % 0 %; Platelet Count 284 10^3/cmm (130-400); Red Cell Distribution Width 11.9 % (12.1-15.1); White Blood Count 6.7 10^3/uL (4.0-10.0)
[2020-08-11 05:25] LABS: Alanine Aminotransferase 13 U/L (0-33); Albumin Level 2.6 g/dL (3.5-5.2); Alkaline Phosphatase 84 IU/L (35-105); Anion Gap 18.2 (5-19); Aspartate Amino Transferase 13 U/L (0-32); Blood Urea Nitrogen 37 mg/dL (8-23); Calcium 8.4 mg/dL (8.5-10.5); Carbon Dioxide 20 mmol/L (22-29); Chloride 103 mmol/L (98-107); Globulin 2.9 g/dL (1.3-4.6); Glucose 294 mg/dL (65-115); Osmolality Calculated 304 mOsm/kg (285-295); Potassium 4.2 mmol/L (3.5-5.1); Sodium 137 mmol/L (136-145); Total Bilirubin 0.4 mg/dL (0.15-1.2); Total Protein 5.5 g/dL (6.6-8.7)
[2020-08-11 05:26] LABS: C Reactive Protein 9.4 mg/L (0.0-4.9)
[2020-08-11] MEDS: enoxaparin 60 mg/0.6 mL Syringe 50 MG SUBCUT (05:27)
--- NOTE | 2020-08-11 10:28 | PM.DCS ---
Discharge Providers Date of Admission: 08/04/20 11:28 Date of Discharge: August 11, 2020 Attending Provider at Admission: Seth Womack MD Attending Provider at Discharge: Caitlin Mcarthur MD Primary Care Provider: SONYA Cristobal Diagnoses at Discharge Discharge Diagnosis (1) Respiratory failure with hypoxia: Status: Acute (2) Pneumonia due to COVID-19 virus: Status: Acute (3) Femur fracture, right: Status: Deleted (4) Hypertension: Status: Acute (5) UTI (urinary tract infection): Status: Acute (6) Emphysema lung: Status: Acute (7) Acute encephalopathy: Status: Acute (8) Pulmonary embolism: Status: Acute Reason for Visit Reason for Visit: RIGHT SIDE PAIN POST GROUND LEVEL FALL Hospital Course Hospital Course Mira Nicholas is a 85 year old female with PMH of HTN was brought inby the after experiencing a fall Night.She was going to bathroom when she slipped and fell. She was found to have Acute nondisplaced right femoral neck fracture and COVID 19 B/L Pneumonia. Hospital course notable as below: (1) Respiratory failure with hypoxia: Respiratory failure with Hypoxia 2/2 bilateral COVID PNA s/p Remdesivir August 04-Aug 08 Remained on dexamethasone 6mg IVP 08/06-08/11, now discharged on Prednisone taper. Ascorbic acid , Zinc Stable D dimer at 2.9 CRP 45--> 25--> 9.4 at discharge s/p Ceftriaxone 08/04-08/11 + azithromycin x 3 days for atypical coverage Continue Advair and Spiriva inhalation on discharge Supplemental Oxygen as needed to maintain saturation greater then 92 % CTA 08/09 showed evidence of few filling defects in the right middle lobe subsegmental and subsegmental pulmonary arteries suspicious for pulmonary embolus. Started on Lovenox 1mg/kg q12h while inpatient. Transitioned to Eliquis 10mg BID x 7 days followed by 5mg po BID at discharge. Check CBC in the next 3-4 days to monitor hemiglibin level, monitor for any signs of bleeding. 02 requirement peaked at 8l/min during admission, on day of discharge improved to 1L/min (2) Pneumonia due to COVID-19 virus: (3) Femur fracture, right: XR Right Hip with Pelvis : Acute nondisplaced right femoral neck fracture.S/P Perc pinning right hip ( 08/04) Pain control with Hydrocodone BID prn, tylenol 650mg q6h prn and toradol BID prn and lidocaine patch locally to hip (4) Hypertension: Continue Amlodipine 10 mg po daily (5) UTI (urinary tract infection): s/p Ceftriaxone 1 gm q24 h daily x 5 days Urine culture with Braden-S E/coli (6) Emphysema lung: Inhalers as above (7) Acute encephalopathy: Acute encephalopathy as evidenced by patient confusion, disorientation. Is likely to be metabolic in nature from current Covid pneumonia, UTI, opiates, high dose steroids , recent surgery. Hospital delirium cannot be excluded. CT head without CVA This is currently improving at time of discharge. Patient is alert, awake and oriented x 3, needs encouragement to mobilize, appropriately replies to questions, however requires effort to participate in conversation. (8) Pulmonary embolism: Started on full dose lovenox, transitioned to po Eliquis on discharge as above Physical Exam Narrative: EXAM NARRATIVE: GEN: Awake, alert and oriented, no acute distress , fatigued,deconditioned CVS: S1S2 N RS: CTA B/L Abd: Soft, nt/nd , bs+ LOAN CONSULTANT: no focal motor neuro deficits Urinary Catheter Management^: Dillard: Cath Placed During This Visit: yes, but has since been removed by the nurse Reason for Continuing Indwelling Catheter: Decision to DC Catheter Urinary Catheter Date of Insertion: 08/04/20 Urinary Catheter Time of Insertion: 10:40 Date Urinary Catheter Removed: 08/07/20 Time Urinary Catheter Discontinued: 18:22 Discharge Data Data Completed and Pending: Completed Studies During Hospitalization Category Date Time Status CT angio chest PE protcl [id number] Rout ine Cat Scan 08/09/20 14:[address] head wo con* 7 [id number] Routine Cat Scan 08/06/20 12:59 Completed XR chest 1V westley ble [id number] AM LABS Exams 08/07/20 04:00 Completed XR chest 1V westley ble [id number] Stat Exams 08/04/20 09:55 Completed XR hip RT 1V wo/w pel [id number] Routine Exams 08/04/20 18:00 Completed XR hip RT 2-3V wo /w pel* [id number] Stat Exams 08/04/20 09:55 Completed Pending at discharge Category Date Time Status Miscellaneous Maira t Routine Lab 08/09/20 16:57 Received Sputum Culture Ro utine Lab 08/09/20 14:49 Uncollected Labs from last 24 hours 08/11/20 08/11/20 08/11/20 04:00 04:00 04:00 WBC 6.7 RBC 3.10 L Hgb 10.1 L Hct 28.8 L MCV 92.9 MCH 32.6 MCHC 35.1 RDW 11.9 L Plt Count 284 MPV 11.7 H Neut % (Auto) 83.2 Lymph % (Auto) 7.0 Crook % (Auto) 6.4 Eos % (Auto) 0.0 Baso % (Auto) 0.1 Neut # (Auto) 5.60 Lymph # (Auto) 0.5 L Crook # (Auto) 0.4 Eos # (Auto) 0.0 Baso # (Auto) 0.0 Nucleated RBC % (a uto) 0 Nucleated RBCs # 0.0 Sodium 137 Potassium 4.2 Chloride 103 Carbon Dioxide 20 L Anion Gap 18.2 BUN 37 H Creatinine 0.9 GFR Calculation Not Reportable Glucose 294 H Calculated Osmolal ity 304 H Calcium 8.4 L Total Bilirubin 0.4 AST 13 ALT 13 Alkaline Phosphata se 84 C-Reactive Protein 9.4 H Total Protein 5.5 L Albumin 2.6 L Globulin 2.9 Vitals: Last Vital Signs Temp 98.6 F 08/11/20 08:43 Pulse 67 08/11/20 08:51 Resp 16 08/11/20 08:51 BP 152/75 08/11/20 08:27 Pulse Ox 93 08/11/20 08:51 Discharge Plan Discharge Patient Disposition: Xfer SNF Condition: Stable Prescriptions: New acetaminophen 325 mg Tablet 650 mg PO Q6H PRN (Reason: Mild Pain) 30 Days Qty: 120 RF: 0 Vitamin C 500 mg Tablet 500 mg PO BID 30 Days Qty: 60 RF: 0 amlodipine 10 mg Tablet 10 mg PO DAILY 30 Days Qty: 30 RF: 0 prednisone 10 mg tablets,dose pack See Rx Instructions .ROUTE .COMPLEX Qty: 21 RF: 0 Eliquis 5 mg tablet See Rx Instructions .ROUTE .COMPLEX Qty: 90 RF: 0 Advair Diskus 250-50 mcg/dose Blister With Device 1 puff inhalation BID.RESPIRATORY 30 Days Qty: 1 RF: 0 ipratropium-albuterol 0.5 mg-3 mg(2.5 mg base)/3 mL Solution For Nebulization 3 ml inhalation Q4H.RESPIRATORY PRN (Reason: dyspnea) 30 Days RF: 0 hydrocodone-acetaminophen 5-325 mg Tablet 1 tab PO Q12H PRN (Reason: Moderate Pain) 7 Days Qty: 14 RF: 0 sennosides-docusate sodium 8.6-50 mg Tablet 2 tab PO BID 30 Days Qty: 120 RF: 0 dextromethorphan-guaifenesin 10-100 mg/5 mL Syrup 5 ml PO Q4H PRN (Reason: Cough) 30 Days Qty: 100 RF: 0 ketorolac 10 mg Tablet 10 mg PO Q12H PRN (Reason: Pain) 7 Days Qty: 14 RF: 0 pantoprazole 40 mg Tablet,Delayed Release (Dr/Ec) 40 mg PO DAILY 30 Days Qty: 30 RF: 0 Spiriva with HandiHaler 18 mcg Capsule, W/Inhalation Device 18 mcg inhalation DAILY.RESPIRATORY 30 Days Qty: 30 RF: 0 Continued latanoprost 0.005 % drops 1 drp ophthalmic (eye) QPM RF: 0 timolol maleate 0.5 % drops 1 drp ophthalmic (eye) BID RF: 0 CoQ-10 100 mg Capsule 100 mg PO DAILY RF: 0 magnesium 1 tab PO DAILY RF: 0 Discontinued amlodipine-benazepril 5-10 mg capsule See Rx Instructions .ROUTE .COMPLEX RF: 0 Discharge Orders: Discharge Order (Routine); Ordered 08/11/20 Ordered By: Caitlin Mcarthur Other Ambulatory Orders: Hemoglobin and Hematocrit (Routine) Timeframe: 3 Days Location: Determined by Patient Ordered By: Caitlin Mcarthur Referrals: Dena Bro, MAINTENANCE SUPERVISOR MECHANICAL-C [Primary Care Provider] - 2 weeks Bill Kaye MD [Physician] - 1 month (Please call on Thursday to set up a follow up appt in one month.) Discharge Diet: Cardiac Discharge Activity: Increase activity as tolerated Activity Restrictions/Additional Instructions: May bear full weight. Okay to shower or bathe. Place Band-Aid over right hip dressing as necessary. Continue Spirometry and flutter valve supplemntal 02 to keep 02 saturation >92% check H&H in 3 days Diet: vegetarian Discharge Attestations Time Spent in Discharge Care*: other Quality Metrics Clinical Quality Measures During this hospital stay, did patient experience: VTE Contraindication to Overlap Therapy: Overlap therapy prescribed VTE Discharge Education: Education about anticoagulant therapy/Care Notes given Deep Vein Thrombosis/Pulmonary Embolism Present on Admission: No Contraindication to Pharm VTE Prophylaxis: VTE prophylaxis given Coding Level of Care Code Acute Physician Primary Care Sports Medicine for Chg Fwd Diagnoses Respiratory failure with hypoxia J96.91 Pneumonia due to COVID-19 virus U07.1; J12.89 Femur fracture, right S72.91XA Hypertension I10 UTI (urinary tract infection) N39.0 Emphysema lung J43.9 Acute encephalopathy G93.40 Pulmonary embolism I26.99
[2020-08-11] MEDS: timolol 0.5% Op Soln 5 mL Btl 1 DROP EYE-BOTH (10:43)
[2020-08-11] MEDS: lidocaine 5% Patch 1 PATCH TOPICAL (10:43)
[2020-08-11] MEDS: ascorbic acid 500 mg Tablet PO (10:44)
[2020-08-11] MEDS: pantoprazole DR 40 mg Tablet PO (10:44)
[2020-08-11] MEDS: sennosides-docusate Tablet 2 TAB PO (10:44)
[2020-08-11] MEDS: amlodipine 10 mg Tablet PO (10:45)
[2020-08-11] MEDS: HYDROcodone-acetaminophen 5-325 mg Tablet 1 TAB PO (10:45)
[2020-08-11] MEDS: chlorhexidine gluconate 0.12% Btl 473 mL 30 ML MUCOUS MEM (10:45)
--- NOTE | 2020-08-11 14:25 | PC.SOCIAL ---
IM explained to . He is [place] but we discussed dc is planned for today and asked if there were any objections of which he said no agreeable for her to go to skilled care.
== END 2020-08-11 01:30 | disposition skilled nursing facility (03) | DRG 480 ==
LOC: ER 11:52 → MEDSURG 11:57 → MS 2A 13:48
PROVIDERS: Orthopaedic Surgery; Admitting Provider Internal Medicine; Emergency Provider Family Medicine; PCP Nurse Practitioner; Visit Provider Student in an Organized Health Care Education/Training Program
PROC: 0QH634Z Insertion of Internal Fixation Device into Right Upper Femur, Percutaneous Approach (ICD-10-PCS; CPT 27236; principal; 2020-08-04 16:00)
DX: S72.91XA Unspecified fracture of right femur, initial encounter for closed fracture (principal); U07.1 COVID-19; J12.82 Pneumonia due to coronavirus disease 2019; I26.99 Other pulmonary embolism without acute cor pulmonale; G93.41 Metabolic encephalopathy; J96.91 Respiratory failure, unspecified with hypoxia; N39.0 Urinary tract infection, site not specified; J43.9 Emphysema, unspecified; W01.198A Fall on same level from slipping, tripping and stumbling with subsequent striking against other object, initial encounter; Y92.002 Bathroom of unspecified non-institutional (private) residence as the place of occurrence of the external cause; B96.20 Unspecified Escherichia coli [E. coli] as the cause of diseases classified elsewhere; E86.0 Dehydration; N18.9 Chronic kidney disease, unspecified; I12.9 Hypertensive chronic kidney disease with stage 1 through stage 4 chronic kidney disease, or unspecified chronic kidney disease
CPT/HCPCS: 12345; 36415; 36600; 51702; 70450; 71045; 71275; 73501; 73502; 76000; 80048; 80051; 80053; 81001; 81003; 82330; 82550; 82728; 82805; 83605; 83735; 83880; 84145; 84443; 85025; 85378; 85610; 86140; 87077; 87086; 87186; 87426; 87635; 87641; 93005; 94640; 96372; 97110; 97162; 97167; 97530; 97535; 99283; C1713; J0690; J0696; J1100; J1650; J2250; J2270; J2405; J2704; J3010; J3490; J7030; Q0144; Q9967

== ENCOUNTER → 2020-09-04 11:36 | Outpatient (BNVA) | payer OTHER, SELFPAY | PROVIDERS: PCP Nurse Practitioner; Visit Provider Orthopaedic Surgery | DX: Z47.89 Encounter for other orthopedic aftercare (principal) | CPT/HCPCS: 73502 ==

== ENCOUNTER 2020-09-13 05:40 | Inpatient (IN) | payer MEDICARE, OTHER, SELFPAY ==
[2020-09-13] VITALS (14 sets, daily range): BP systolic 141–188; BP diastolic 57–111; PULSE 66–93; RESP 14–20; TEMP 36.4–37.2; O2SAT 91–98; BMI 17.6
--- NOTE | 2020-09-13 06:23 | CTR_ITS ---
PROCEDURE INFORMATION: Exam: CT Lumbar Spine Without Contrast Exam date and time: 09/13/2020 6:24 AM Age: 85 years old Clinical indication: Injury or trauma; Fall; Blunt trauma (contusions or hematomas); Prior surgery; Surgery type: Gb. Appy. Hip pinning. TECHNIQUE: Imaging protocol: Computed tomography images of the lumbar spine without contrast. Radiation optimization: All CT scans at this facility use at least one of these dose optimization techniques: automated exposure control; mA and/or kV adjustment per patient size (includes targeted exams where dose is matched to clinical indication); or iterative reconstruction. COMPARISON: No relevant prior studies available. RADIATION DOSE METRICS: Total DLP (mGy-cm): 1010.85 FINDINGS: Vertebrae: No spondylolisthesis No pars defect. Mild compression fracture involving the L1 vertebral body particularly superiorly. No significant retropulsed fragment. Discs/Spinal canal/Neural foramina: Moderate degenerative disc disease diffusely reflected as decrease in disc space height and anterior endplate osteophytosis. Moderate to severe central canal narrowing L4-L5. Soft tissues: Unremarkable. CT/CT lumbar spine wo con* [id number] IMPRESSION: Compression fracture L1. See below. 1. Moderate diffuse degenerative disc disease. 2. Mild compression fracture involving the L1 vertebral body particularly superiorly. No significant retropulsed fragment. 3. Moderate to severe central canal narrowing L4-L5. Radiation Dose CTDIVOL = (mGy): DLP = 1010.85 (mGy-cm)
--- NOTE | 2020-09-13 06:26 | CTR_ITS ---
PROCEDURE INFORMATION: Exam: CT Right Lower Extremity Without Contrast, Hip Exam date and time: 09/13/2020 6:24 AM Age: 85 years old Clinical indication: Injury or trauma; Blunt trauma; Right; Prior surgery; Patient HX: Fall this a. M at home. Hip pinning performed July of 2020. Currently on eloquis. ; Additional info: Fall/ recent surgery TECHNIQUE: Imaging protocol: CT of the Right lower extremity without contrast was performed. Exam focused on the hip. Radiation optimization: All CT scans at this facility use at least one of these dose optimization techniques: automated exposure control; mA and/or kV adjustment per patient size (includes targeted exams where dose is matched to clinical indication); or iterative reconstruction. COMPARISON: CR XR hip RT 2-3V wo/w pel* [id number] 09/04/2020 11:43 AM RADIATION DOSE METRICS: Total DLP (mGy-cm): 318.22 FINDINGS: Bones/joints: Degenerative changes sacroiliac joint Acetabulum without fracture 3 cancellus screws stabilizing the proximal femoral/femoral neck fracture in near anatomical alignment. Soft tissues: Mild stranding in the soft tissues/edema. Likely related to the recent surgery. No large fluid collection. Follow-up if indicated clinically. CT/CT hip RT wo con* [id number] IMPRESSION: 1. 3 cancellus screws stabilizing the proximal femoral/femoral neck fracture in near anatomical alignment. 2. Mild stranding in the soft tissues/edema. Likely related to the recent surgery. No large fluid collection. Follow-up if indicated clinically. Radiation Dose CTDIVOL = (mGy): DLP = 318.22 (mGy-cm)
--- NOTE | 2020-09-13 06:28 | CTR_ITS ---
PROCEDURE INFORMATION: Exam: CT Abdomen And Pelvis Without Contrast Exam date and time: 09/13/2020 6:24 AM Age: 85 years old Clinical indication: Injury or trauma; Blunt; Generalized; Prior surgery; Surgery type: Gb. Appy. Hip pinning. ; Patient HX: Fall this a. M at home. Hip pinning performed July of 2020. Currently on eloquis. TECHNIQUE: Imaging protocol: Computed tomography of the abdomen and pelvis without contrast. Radiation optimization: All CT scans at this facility use at least one of these dose optimization techniques: automated exposure control; mA and/or kV adjustment per patient size (includes targeted exams where dose is matched to clinical indication); or iterative reconstruction. COMPARISON: CT Abdomen/Pelvis Renal [id number] 07/13/2016 2:21 PM RADIATION DOSE METRICS: Total DLP (mGy-cm): 692.87 FINDINGS: Lungs: Rounded masslike density left lower lobe. Please refer to the CT chest. Finding suspicious for a mass. Liver: Normal. No mass. Gallbladder and bile ducts: Prominence of the biliary radicals likely related to the prior cholecystectomy and hence the reservoir effect. Prominence of the pancreatic duct. Please correlate. Consider follow-up with IV contrast if indicated. No clearly visualized mass. Please correlate with LFTs. Pancreas: See Gallbladder and bile ducts finding. Spleen: Normal. No splenomegaly. Adrenal glands: Normal. No mass. Kidneys and ureters: No renal calcifications, hydronephrosis, or hydroureter. Stomach and bowel: Moderate amount stool within the large bowel. Appendix: No evidence of appendicitis. Intraperitoneal space: no acute intra-abdominal process. No free fluid in the pelvis. No evidence of visceral injury. Vasculature: Calcification of the aorta. Lymph nodes: Unremarkable. No enlarged lymph nodes. Urinary bladder: Distended bladder Reproductive: Unremarkable as visualized. Bones/joints: Visualized ribs without fracture. Prior surgical pin fixation of the right femur/femoral neck. Subtle depression deformity of the L1 vertebral body particularly the anterior cortex. Mild compression fracture. No retropulsed fragment. This represents an interval change from the previous CT. No paravertebral edema however. Correlate. Soft tissues: See Intraperitoneal space finding. CT/CT abdomen pelvis wo con [id number] IMPRESSION: 1. No acute intra-abdominal process. No free fluid in the pelvis. No evidence of visceral injury. 2. No renal calcifications, hydronephrosis, or hydroureter. 3. Rounded masslike density left lower lobe. Please refer to the CT chest. Finding suspicious for a mass. Fibrotic changes lung bases 4. Prior surgical pin fixation of the right femur/femoral neck. Mild stranding in the soft tissues. 5. Subtle depression deformity of the L1 vertebral body particularly the anterior cortex. Mild compression fracture. No retropulsed fragment. This represents an interval change from the previous CT. No paravertebral edema however. Correlate. Radiation Dose CTDIVOL = (mGy): DLP = 692.87 (mGy-cm)
--- NOTE | 2020-09-13 06:29 | W.ED.FALL ---
HPI - Fall General: Chief Complaint: Fall Stated Complaint: low back pain from fall Time Seen by Provider: 09/13/20 05:57 History of Present Illness: HPI Narrative: The patient is an 85-year-old female who comes to the ER after a fall. She says she fell backwards this morning while going to the bathroom and is complaining of low back pain, abdominal pain, and right hip pain. She was recently discharged after a fall on August 04 where she broke her right hip and had pins placed later that day by Dr. Kaye. She was also diagnosed with PE and Covid during that admission. She is taking Eliquis. complaint: fall Fall from: standing Place fall occurred: longterm/SNF Loss of consciousness: None Prolonged down time: no Symptoms prior to fall: none Context: tripped/slipped Location of injury: back, abdomen and pelvis Quality: sharp Associated symptoms-after fall: Reports abdominal pain and difficulty walking; Denies chest pain or neck pain Review of Systems General: Reports: 10 or more systems reviewed and unremarkable except in HPI and below Const: Denies: fatigue Eyes: Denies: change in vision, blurry vision or eye redness ENMT: Denies: throat pain, swelling of lips/tongue, ear or mastoid pain or nasal congestion Card: Denies: chest pain, palpitations, irregular heart rhythm, edema, dyspnea on exertion or orthopnea Resp: Denies: dyspnea, productive cough or non-productive cough GI: Reports: abdominal pain : Denies: flank pain, difficulty voiding, urinary frequency or urinary urgency Musc: Denies: neck pain, back pain, extremity pain, joint pain, joint redness, limited range of motion or muscle weakness Skin/Breast: Denies: rash, pruritus, erythema, skin pain or skin tenderness Neuro: Reports: difficulty walking Psych: Denies: anxiety or depression Endo: Denies: polyuria All/Imm: Denies: urticaria, throat swelling or tongue swelling PFSH ED PFSH: Medical History COVID-19 Surgical History Postoperative state Physical Exam Const: COMMON NORMALS: no acute distress, average body habitus, patient oriented x3, no limitations, healthy appearing, alert and well nourished GENERAL APPEARANCE: cooperative, comfortable, well kempt and well developed ORIENTATION/CONSCIOUSNESS: Yes awake, Yes oriented to person, Yes oriented to place and Yes oriented to time HENMT: COMMON NORMALS: normocephalic, external ears normal and Normal external nose present HEAD & SCALP: normal to inspection and normocephalic NOSE: Normal external nose present EXTERNAL EAR: Yes external ears normal MOUTH: Normal oral and palatal mucosa present THROAT: posterior oropharynx normal Eye: COMMON NORMALS: Equal, round and reactive pupils present and EOMs intact bilaterally GENERAL EYE: appearance normal, both eyes and all related structures PUPIL: Yes Equal, round and reactive pupils present Neck/C-Spine: COMMON NORMALS: full ROM, no lymphadenopathy, no meningeal signs and no JVD GENERAL: Yes normal visual inspection Lymph: LYMPHATIC: no lymphadenopathy noted Chest: COMMONS NORMALS: normal inspection of the chest and normal palpation of entire chest wall Resp: COMMON NORMALS: normal respiratory effort, No retractions, No use of accessory muscles, clear to auscultation bilaterally and percussion normal EFFORT & INSPECTION: Yes able to speak in complete sentences AUSCULTATION: clear to auscultation bilaterally PERCUSSION: percussion normal Cardio: COMMON NORMALS: no JVD, regular rate, regular rhythm, S1 normal heart sound present, S2 normal heart sound present and Peripheral pulses 2+ throughout RATE: regular rate RHYTHM: regular rhythm HEART SOUNDS: S1 normal heart sound present and S2 normal heart sound present PERIPHERAL PULSES: Peripheral pulses 2+ throughout GI: COMMON NORMALS: Normal to inspection, nondistended, normoactive bowel sounds present, Soft to palpation, non-tender and no masses INSPECTION: Yes normal to inspection PALPATION: Yes Soft to palpation : COMMON NORMALS: Yes no CVA tenderness BLADDER/KIDNEY EXAM: Yes no CVA tenderness Back/Pelvis: COMMON NORMALS: no CVA tenderness and thoracic and lumbar spine normal to inspection THORACIC SPINE/UPPER BACK: Yes normal to inspection and Yes thoracic ROM normal LUMBAR SPINE/LOWER BACK: Yes pain with ROM, Yes lumbar spinal tenderness and Yes paraspinal muscle tenderness PELVIS: Yes Other pelvic findings (Mild discomfort with manipulation of pelvis and right hip pain with movemen) OTHER: Tenderness worst over L spine however she has tenderness to buttocks, right hip, and mildly in abdomen. Extremity: COMMON NORMALS: normal to inspection, full ROM, capillary refill normal, no joint enlargement and no pedal edema GENERAL: Yes normal exam except as noted Neuro: COMMON NORMALS: patient oriented x3, CN's II-XII intact bilaterally, moves all extremities, no focal motor deficits, no sensory deficits noted and gait normal SENSORIUM/ORIENTATION: Yes alert, Yes oriented to person, Yes oriented to place and Yes oriented to time MENINGEAL SIGNS: Yes no meningeal signs Psych: COMMON NORMALS: mental status grossly normal, Normal thought process present, cooperative, normal affect and speech normal APPEARANCE: Yes well kempt ATTITUDE: Yes calm SPEECH: Yes normal speech THOUGHT PROCESS: Normal thought process present Skin: COMMON NORMALS: no rashes or lesions noted GENERAL SKIN EXAM: no rashes or lesions noted Course Vital Signs: Vital signs: Vital Signs Temperature 98.9 F 09/13/20 11:32 Pulse Rate 79 09/13/20 11:32 Respiratory Rate 18 09/13/20 11:32 Blood Pressure 165/80 09/13/20 11:32 Pulse Oximetry 96 09/13/20 11:32 MDM - Fall MDM Narrative: Medical decision making narrative: Imaging shows compression fracture of the L1. She is too weak to go home and consideration was given to discharging her to the longterm directly. She also has a new lung mass which is likely an abscess. She was started on IV antibiotics and admitted to the floor for this. Dr. Buchanan accepts Lab Data: Labs: Lab Results 09/13/20 09/13/20 09/13/20 Range/Units 08:30 08:30 08:30 WBC 8.7 (4.0-10.0) 10^3/ uL RBC 3.08 L (4.1-5.3) 10^6/u L Hgb 10.5 L (11.5-15.3) g/dL Hct 31.6 L (37.0-47.0) % MCV 102.6 H (81-99) fL MCH 34.1 H (28.0-34.0) pg MCHC 33.2 (30.0-36.0) g/dL RDW 14.4 (12.1-15.1) % Plt Count 224 (130-400) 10^3/c mm MPV 10.4 (7.4-10.4) fL Neut % (Auto) 80.5 % Lymph % (Auto) 10.2 % Hinds % (Auto) 7.3 % Eos % (Auto) 0.3 % Baso % (Auto) 0.6 % Neut # (Auto) 7.00 (1.8-7.7) 10^3/u L Lymph # (Auto) 0.9 (0.8-4.8) 10^3/u L Hinds # (Auto) 0.6 (0.2-0.9) 10^3/u L Eos # (Auto) 0.0 (0.0-0.8) 10^3/u L Baso # (Auto) 0.1 (0.0-0.1) 10^3/u L Nucleated RBC % (a uto) 0 % Nucleated RBCs # 0.0 /100WBC Sodium 138 (136-145) mmol/L Potassium 3.0 L (3.5-5.1) mmol/L Chloride 102 (98-107) mmol/L Carbon Dioxide 25 (22-29) mmol/L Anion Gap 14.0 (5-19) BUN 11 (8-23) mg/dL Creatinine 0.7 (0.5-0.9) mg/dL GFR Calculation Not Reportable Glucose 166 H (65-115) mg/dL Calculated Osmolal ity 289 (285-295) mOsm/k g Calcium 8.8 (8.5-10.5) mg/dL Total Bilirubin 0.4 (0.15-1.2) mg/dL AST 18 (0-32) U/L ALT 12 (0-33) U/L Alkaline Phosphata se 79 (35-105) IU/L Troponin T Baselin e 20 H (0-10) ng/L Total Protein 6.1 L (6.6-8.7) g/dL Albumin 3.4 L (3.5-5.2) g/dL Globulin 2.7 (1.3-4.6) g/dL Discharge Plan Discharge Patient Disposition: Admitted As Inpatient Admit Provider: Jasmeet Buchanan Clinical Impression: Compression fracture, Abscess of lung Condition: Stable Coding Level of Care Code ED Gas Cutting Machine Operator for g Fwd Exam Comprehensive
--- NOTE | 2020-09-13 06:47 | CTR_ITS ---
PROCEDURE INFORMATION: Exam: CT Thoracic Spine Without Contrast Exam date and time: 09/13/2020 6:48 AM Age: 85 years old Clinical indication: Injury or trauma; Fall; Blunt trauma (contusions or hematomas); Prior surgery; Surgery type: Gb/hip/appy TECHNIQUE: Imaging protocol: Computed tomography images of the thoracic spine without contrast. Radiation optimization: All CT scans at this facility use at least one of these dose optimization techniques: automated exposure control; mA and/or kV adjustment per patient size (includes targeted exams where dose is matched to clinical indication); or iterative reconstruction. COMPARISON: No relevant prior studies available. RADIATION DOSE METRICS: Total DLP (mGy-cm): 671.92 FINDINGS: Vertebrae: Alignment is normal No fracture. Mild compression fracture involving the superior endplate of L1. Discs/Spinal canal/Neural foramina: Degenerative changes throughout much of the thoracic spine Soft tissues: Unremarkable. Vasculature: Vascular calcifications Lungs: Masslike density left lower lobe. CT chest suggested. CT/CT thoracic spin wo con* [id number] IMPRESSION: 1. No fracture. degenerative disc disease. 2. Masslike density left lower lobe. CT chest suggested. 3. Mild compression fracture involving the superior endplate of L1. Radiation Dose CTDIVOL = (mGy): DLP = 671.92 (mGy-cm)
--- NOTE | 2020-09-13 06:48 | CTR_ITS ---
PROCEDURE INFORMATION: Exam: CT Cervical Spine Without Contrast Exam date and time: 09/13/2020 6:48 AM Age: 85 years old Clinical indication: Injury or trauma; Fall; Blunt trauma; Prior surgery; Surgery date: 6+ months; Surgery type: Gb/hip/appy TECHNIQUE: Imaging protocol: Computed tomography images of the cervical spine without contrast. Radiation optimization: All CT scans at this facility use at least one of these dose optimization techniques: automated exposure control; mA and/or kV adjustment per patient size (includes targeted exams where dose is matched to clinical indication); or iterative reconstruction. COMPARISON: No relevant prior studies available. RADIATION DOSE METRICS: Total DLP (mGy-cm): 249.81 FINDINGS: Bones/joints: No acute fracture. Discs/Spinal canal/Neural foramina: Degenerative changes including disc space narrowing, endplate spurring facet hypertrophy. Findings are most prominent at C4-C5 C5-C6 and C6-C7. Lungs: Lung apices are normal. Soft tissues: Unremarkable. CT/CT cervical spin wo con* [id number] IMPRESSION: No acute cervical fracture. Radiation Dose CTDIVOL = (mGy): DLP = 249.81 (mGy-cm)
--- NOTE | 2020-09-13 06:48 | CTR_ITS ---
PROCEDURE INFORMATION: Exam: CT Head Without Contrast Exam date and time: 09/13/2020 6:50 AM Age: 85 years old Clinical indication: Injury or trauma; Fall; Blunt trauma (contusions or hematomas); Consciousness not specified; Injury date: Today TECHNIQUE: Imaging protocol: Computed tomography of the head without contrast. Radiation optimization: All CT scans at this facility use at least one of these dose optimization techniques: automated exposure control; mA and/or kV adjustment per patient size (includes targeted exams where dose is matched to clinical indication); or iterative reconstruction. COMPARISON: CT head wo con* [id number] 08/06/2020 2:30 PM RADIATION DOSE METRICS: Total DLP (mGy-cm): 686.43 FINDINGS: Brain: No hemorrhage. No edema, mass effect or midline shift. Periventricular and deep white matter hypodensities compatible with chronic microvascular ischemic changes. Chronic appearing basal ganglia lacunar infarcts. Cerebral ventricles: No ventriculomegaly. Bones/joints: No acute fracture. Paranasal sinuses: Visualized sinuses are unremarkable. No fluid levels. Mastoid air cells: No mastoid effusion. Soft tissues: Unremarkable. CT/CT head wo con* [id number] IMPRESSION: No acute intracranial abnormality. Radiation Dose CTDIVOL = (mGy): DLP = 686.43 (mGy-cm)
[2020-09-13] MEDS: ondansetron 2 mg/ML SDV 2 mL 4 MG IVP (07:19)
--- NOTE | 2020-09-13 07:25 | PC.NURSE ---
Received report at 0700, pt gone to radiology. Pt back to room, alert and moaning. Removed wet diaper, placed on bed ramos. BP high , informed Dr Pascal. Continue to monitor.
[2020-09-13] MEDS: HYDROcodone-acetaminophen 5-325 mg Tablet 2 TAB PO (07:31)
--- NOTE | 2020-09-13 08:13 | CT_ITS ---
WS: [id number] CT CHEST WITH INTRAVENOUS CONTRAST HISTORY: lung mass TECHNIQUE: Contiguous 5 mm axial imaging performed on the thorax. Coronal and sagittal reformats are submitted. All CT scans at [facility] use at least one of these dose optimization techniq ues: automated exposure control; mA and/or kV adjustment per patient size (includes targeted exams wh ere dose is matched to clinical indication); or iterative reconstruction. CONTRAST: Omnipaque 300; 95 mL IV. DLP: 265.81 mGy.cm COMPARISON: 08/09/2020, CT thoracic spine 09/13/2020 Lungs and central airway: Peripheral reticular interstitial thickening throughout all lobes. Signific ant improvement since 08/09/2020. There is a new ovoid consolidation in the LEFT lower lobe measuring 3.6 x 2.5 cm. Dense consolidation with thick wall. The central portion of this consolidation is low a ttenuation. This was not present on 08/01/2020. Pleura: Normal. No pleural effusion. Heart and pericardium: Normal size heart with no pericardial effusion. Mediastinum and jackie: Mildly prominent bilateral hilar lymph nodes in the precarinal lymph node which have all become more prominent since the prior study although remains less than 1 cm in diameter. Vessels: Moderate atherosclerosis aorta. Pulmonary artery size is slightly prominent. Chest wall and lower neck: Subcentimeter LEFT thyroid nodule. Upper abdomen: Bilateral cortical thinning and nodularity involving the upper poles of each kidney. N o adrenal mass. Osseous structures: Again noted is a mild acute appearing compression fracture involving the superior endplate of L1. CT/CT chest w con* [id number] IMPRESSION: 1. Masslike consolidation with central lucency in the LEFT lower lobe. New sin ce 08/09/2020. Favor this is probably a lung abscess which has developed in the interval. Differential would include necrotic neoplasm. Consider aspiration pne umonia or other sources of infection as a possible etiology. 2. Although less than 1 cm the hilar and mediastinal lymph nodes have become s lightly more prominent. 3. Moderate improvement in the groundglass attenuation throughout both lungs s blayne 08/09/2020. 4. Mild cardiomegaly. 5. No pleural effusion. 6. Minimal acute L1 compression deformity.
--- NOTE | 2020-09-13 08:14 | ECG_ITS ---
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 Measurements Intervals [place] Rate: 73 P: 16 W[place]: 171 QRS: -1 QRSD: 86 T: 43 QT: 390 QTc: 431 Interpretive Statements SINUS RHYTHM WITH OCCASIONAL SUPRAVENTRICULAR PREMATURE COMPLEXES Compared to ECG 08/04/2020 11:23:43 No significant changes Electronically Signed On 09-13-2020 21:59:16 [employer]AGE MEAT TRIMMER by Maggie Bo M.D. [id number]
[2020-09-13 08:40] LABS: Basophils # 0.1 10^3/uL (0.0-0.1); Basophils % 0.6 %; Eosinophils % 0.3 %; Hematocrit 31.6 % (37.0-47.0); Hemoglobin 10.5 g/dL (11.5-15.3); Lymphocytes # 0.9 10^3/uL (0.8-4.8); Lymphocytes % 10.2 %; Mean Corpuscular HGB Conc 33.2 g/dL (30.0-36.0); Mean Corpuscular Hemoglobin 34.1 pg (28.0-34.0); Mean Corpuscular Volume 102.6 fL (81-99); Mean Platelet Volume 10.4 fL (7.4-10.4); Monocytes # 0.6 10^3/uL (0.2-0.9); Monocytes % 7.3 %; Neutrophils % 80.5 %; Nucleated Red Blood Cells % 0 %; Platelet Count 224 10^3/cmm (130-400); Red Blood Count 3.08 10^6/uL (4.1-5.3); Red Cell Distribution Width 14.4 % (12.1-15.1); White Blood Count 8.7 10^3/uL (4.0-10.0)
[2020-09-13 09:22] LABS: Alanine Aminotransferase 12 U/L (0-33); Albumin Level 3.4 g/dL (3.5-5.2); Alkaline Phosphatase 79 IU/L (35-105); Aspartate Amino Transferase 18 U/L (0-32); Blood Urea Nitrogen 11 mg/dL (8-23); Calcium 8.8 mg/dL (8.5-10.5); Carbon Dioxide 25 mmol/L (22-29); Chloride 102 mmol/L (98-107); Globulin 2.7 g/dL (1.3-4.6); Glucose 166 mg/dL (65-115); Osmolality Calculated 289 mOsm/kg (285-295); Sodium 138 mmol/L (136-145); Total Bilirubin 0.4 mg/dL (0.15-1.2); Total Protein 6.1 g/dL (6.6-8.7)
[2020-09-13 09:23] LABS: Troponin(5th) Baseline 20 ng/L (0-10)
[2020-09-13] MEDS: potassium chloride ER 20 mEq Tablet 40 MEQ PO (10:00)
--- NOTE | 2020-09-13 10:03 | P.CONIM_ITS ---
Providers/Reason For Consult Primary Care Provider: Dena Bro, SONYA History of Present Illness History of Present Illness Mira Nicholas is a 85 year old female Meds/Allergies Home Medications and Allergies Home Medications Medication Instructions Recorded Confirmed Last Taken Type coenzyme Q10 [CoQ-10] 100 mg PO DAILY 08/04/20 09/13/20 09/12/20 History latanoprost 1 drp OPHTHALMIC (EYE) QPM 08/04/20 09/13/20 Unknown History magnesium 1 tab PO DAILY 08/04/20 09/13/20 09/12/20 History timolol maleate 1 drp OPHTHALMIC (EYE) BID 08/04/20 09/13/20 Unknown History apixaban [Eliquis] See Rx Instructions .ROUTE 08/11/20 09/13/20 Unknown Rx .COMPLEX #90 tab Allergies Allergy/AdvReac Type Severity Reaction Status Date / Time No Known Allergies Allergy Verified 09/13/20 05:49 PFSH Acute PFSH: Medical History COVID-19 Surgical History Postoperative state Vitals/I&O/Wt Last Vital Signs Temp 98.1 F 09/13/20 05:44 Pulse 76 09/13/20 09:00 Resp 16 09/13/20 09:00 BP 141/90 09/13/20 09:00 Pulse Ox 96 09/13/20 09:00 Weight last 48 hrs Weight 40.823 kg Coding Level of Care Code Acute Party Supply Specialist for Michel Hernandez
[2020-09-13] MEDS: iohexol 300 mg/mL 100 mL Btl IV (10:06)
[2020-09-13] MEDS: piperacillin-tazobactam 3.375 GM in sodium chloride 0.9% (plus) 50 ML IV ×2 (11:17→18:12)
--- NOTE | 2020-09-13 11:32 | DCPLANNER ---
Addendum entered by Jillian Horne 09/13/20 14:53: Patient was admitted to the hospital - correctional casework specialist called Sherly at [facility], left a voicemail for her to call correctional casework specialist back. used car manager called Sherly at [facility] again at 2:52 on September 13 left voicemail for her that patient had been admitted to the floor at this time. Original Note: used car manager was asked to speak with Sherly at [facility] about patient returning to [facility]. used car manager was told that patient was able to return, when patient was discharged that a new completed med list and discharge paperwork would need to be faxed to the intermediate. used car manager was told that patients nurse would need to call report to [facility].
--- NOTE | 2020-09-13 12:24 | PC.NURSE ---
arrived pt was transferred over to bed. vital signs taken and bed alarm set. will orient pt to room and equipement.
[2020-09-13] MEDS: HYDROcodone-acetaminophen 5-325 mg Tablet 1 TAB PO (13:08)
[2020-09-13] MEDS: vancomycin 750 MG in sodium chloride 0.9% 250 ML 250 MG IV (13:11)
--- NOTE | 2020-09-13 13:34 | P.HP_ITS ---
Providers/Chief Complaint Admitting Physician: Jasmeet Buchanan MD Primary Care Provider: Dena Bro, ARIELA-C Chief Complaint: low back pain from fall History of Present Illness Mira Nicholas is a 85 year old female that presented to the hospital after a fall. She reports she was on her way to the bathroom with her walker when she lost her balance falling backward. She denies any loss of consciousness. She reports no significant symptoms recently of fever or cough. She will occasionally be short of breath with exertion. She was recently in the nursing facility for rehabilitation following a hip fracture. She was released on September 10. She had also recently been in the hospital August 04. During that time besides having a hip fracture, she had respiratory failure secondary to Covid pneumonia and completed a course of remdesivir. She also had a CTA demon strating pulmonary embolism and was started on Eliquis. She was treated with antibiotics for UTI. Review of Systems General: Reports: 10 or more systems reviewed and unremarkable except in HPI a nd below Const: Denies: fever(s) or chills Eyes: Denies: change in vision ENMT: Denies: throat pain Card: Denies: chest pain Resp: Reports: dyspnea GI: Denies: abdominal pain : Denies: flank pain Musc: Reports: extremity pain Skin/Breast: Denies: rash Neuro: Denies: headache(s) or dizziness Psych: Denies: anxiety Endo: Denies: polyuria Valeriy/Lymph: Denies: easy bruising All/Imm: Denies: urticaria Medications/Allergies Home Medications Medication Instructions Recorded Confirmed Last Taken Type coenzyme Q10 [CoQ-10] 100 mg PO DAILY 08/04/20 09/13/20 09/12/20 History latanoprost 1 drp OPHTHALMIC (EYE) QPM 08/04/20 09/13/20 Unknown History magnesium 1 tab PO DAILY 08/04/20 09/13/20 09/12/20 History timolol maleate 1 drp OPHTHALMIC (EYE) BID 08/04/20 09/13/20 Unknown History apixaban [Eliquis] See Rx Instructions .ROUTE 08/11/20 09/13/20 Unknown Rx .COMPLEX #90 tab Allergies Allergy/AdvReac Type Severity Reaction Status Date / Time No Known Allergies Allergy Verified 09/13/20 05:49 PFSH Acute PFSH: Medical History (Updated 09/13/20 @ 13:53 by Jasmeet Buchanan MD) COVID-19 Emphysema lung Hypertension Nondisplaced fracture of neck of left femur Pneumonia due to COVID-19 virus Pulmonary embolism Surgical History (Updated 09/13/20 @ 13:39 by Jasmeet Buchanan MD) History of repair of hip fracture Postoperative state Social History (Updated 09/13/20 @ 13:40 by Jasmeet Buchanan MD) Smoking and tobacco status: never smoked Alcohol intake: never Supplemental PFSH Information: No significant family history noted Vitals/I&O/Wt Last Vital Signs Temp 97.9 F 09/13/20 12:00 Pulse 68 09/13/20 12:00 Resp 14 09/13/20 12:00 BP 154/83 09/13/20 12:00 Pulse Ox 94 09/13/20 12:00 Weight last 48 hrs Weight 40.823 kg Physical Exam Narrative: EXAM NARRATIVE: General exam is a conversant female with some low back pain. Denies any paresthesias HEENT: Pupils equally round reactive to light. Oropharynx clear. Neck is supple no lymphadenopathy or thyromegaly Cardiovascular regular rate and rhythm without murmur, no S3 or S4 Lungs clear no wheezing or crackles Abdomen is soft with positive bowel sounds. No obvious organomegaly was deferred Extremities no cyanosis clubbing or edema, cap refill brisk. Hip fracture repair site well-healed. Skin no rash Neuro no focal deficits. Data : 09/13/20 08:30 09/13/20 08:30 Other data: LFTs are normal Chest CT demonstrated concern of mass left lower lobe, favor lung abscess secondary to central lucency. Minimal acute L1 compression fracture also noted. CT of head nothing acute. CT cervical spine no fracture. CT thoracic spine demonstrated L1 compression fracture, minimal. CT abdomen and pelvis d emonstrated lung findings as noted above. Hip CT negative A&P Assessment and plan (1) Abscess of lung: IV antibiotics consisting of Vanco and Zosyn Speech therapy consult Pulmonary evaluation Status: Acute (2) Compression fracture: Physical therapy consultation Fall precautions Status: Acute (3) Pulmonary embolism: Continue patient's Eliquis Status: Acute Additional A&P Information Hypokalemia. Supplement. Check magnesium level. History of COVID-19 pneumonia. Full code Eliquis will suffice for DVT prophylaxis Attestations Medical Necessity Statement*: Will need greater than 2 midnight stay for treatment of lung abscess with IV antibiotics. Coding Level of Care Code Acute Insulation Cutter And Former for Michel Hernandez Diagnoses Abscess of lung J85.2 Compression fracture Pulmonary embolism I26.99
[2020-09-13 14:38] LABS: Magnesium 1.3 mg/dL (1.7-2.3)
[2020-09-13 14:46] LABS: Procalcitonin 0.09 ng/mL (0-0.5)
[2020-09-13] MEDS: acetaminophen 325 mg Tablet 650 MG PO (16:10)
[2020-09-13] MEDS: timolol 0.5% Op Soln 5 mL Btl 1 DROP EYE-RIGHT (18:15)
[2020-09-13] MEDS: magnesium sulfate premix 2 GM/50 ML PIGGYBACK IV (21:15)
[2020-09-14] VITALS (7 sets, daily range): BP systolic 135–176; BP diastolic 56–87; PULSE 59–78; RESP 16–18; TEMP 36.7–37.6; O2SAT 90–100
[2020-09-14] MEDS: piperacillin-tazobactam 3.375 GM in sodium chloride 0.9% (plus) 50 ML IV ×3 (02:36→17:36)
[2020-09-14 05:43] LABS: Basophils % 0.4 %; Eosinophils # 0.1 10^3/uL (0.0-0.8); Eosinophils % 1.8 %; Hematocrit 28.1 % (37.0-47.0); Hemoglobin 9.2 g/dL (11.5-15.3); Lymphocytes # 0.7 10^3/uL (0.8-4.8); Lymphocytes % 12.1 %; Mean Corpuscular HGB Conc 32.7 g/dL (30.0-36.0); Mean Corpuscular Hemoglobin 33.3 pg (28.0-34.0); Mean Corpuscular Volume 101.8 fL (81-99); Mean Platelet Volume 10.4 fL (7.4-10.4); Monocytes # 0.5 10^3/uL (0.2-0.9); Monocytes % 8.3 %; Neutrophils # 4.38 10^3/uL (1.8-7.7); Nucleated Red Blood Cells % 0 %; Platelet Count 197 10^3/cmm (130-400); Red Blood Count 2.76 10^6/uL (4.1-5.3); Red Cell Distribution Width 14.3 % (12.1-15.1); White Blood Count 5.7 10^3/uL (4.0-10.0)
[2020-09-14 06:07] LABS: Alanine Aminotransferase 36 U/L (0-33); Albumin Level 2.9 g/dL (3.5-5.2); Alkaline Phosphatase 118 IU/L (35-105); Aspartate Amino Transferase 71 U/L (0-32); Blood Urea Nitrogen 11 mg/dL (8-23); Calcium 8.4 mg/dL (8.5-10.5); Carbon Dioxide 26 mmol/L (22-29); Chloride 106 mmol/L (98-107); Globulin 2.8 g/dL (1.3-4.6); Glucose 91 mg/dL (65-115); Osmolality Calculated 289 mOsm/kg (285-295); Sodium 140 mmol/L (136-145); Total Bilirubin 0.6 mg/dL (0.15-1.2); Total Protein 5.7 g/dL (6.6-8.7)
[2020-09-14] MEDS: HYDROcodone-acetaminophen 5-325 mg Tablet 1 TAB PO ×2 (08:32→17:35)
--- NOTE | 2020-09-14 08:32 | PM.CONSULT ---
Providers/Reason For Consult Consulting Physican/Specialty*: Anselmo Rodriguez MD/Pulmonary Medicine Reason for Consult*: Masslike consolidation with central lucency in the LEFT lower lobe Attending Physician: Jasmeet Buchanan MD Primary Care Provider: ARIELA Cristobal-Alphonso History of Present Illness History of Present Illness Mira Nicholas is a 85 year old female with PMH COVID-19 pneumonia 2 months ago, emphysema, hypertension, PE presented to the hospital after a mechanical fall on her way to bathroom with her walker when she lost her balance. Denied dizziness, loss of consciousness, abnormal movements of the extremities, fever, cough reported being short of breath occasionally. Last hospital admission for hip fracture has respiratory failure secondary to COVID-19 pneumonia in August 04, following which she was sent to nursing facility for rehabilitation following a hip fracture and was discharged on September 10. Her CTA during July admission showed pulmonary embolism and was started on Eliquis and was treated with antibiotics for UTI. -Ms. 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 -Labs and imaging reviewed Review of Systems General: Reports: 10 or more systems reviewed and unremarkable except in HPI and below Meds/Allergies Home Medications and Allergies Home Medications Medication Instructions Recorded Confirmed Last Taken Type coenzyme Q10 [CoQ-10] 100 mg PO DAILY 08/04/20 09/13/20 09/12/20 History latanoprost 1 drp OPHTHALMIC (EYE) QPM 08/04/20 09/13/20 Unknown History magnesium 1 tab PO DAILY 08/04/20 09/13/20 09/12/20 History timolol maleate 1 drp OPHTHALMIC (EYE) BID 08/04/20 09/13/20 Unknown History apixaban [Eliquis] See Rx Instructions .ROUTE 08/11/20 09/13/20 Unknown Rx .COMPLEX #90 tab Allergies Allergy/AdvReac Type Severity Reaction Status Date / Time No Known Allergies Allergy Verified 09/13/20 05:49 Current Medications Current Medications Generic Name Dose Route Start Last Admin Trade Name Freq PRN Reason Stop Dose Admin Acetaminophen 650 mg 09/13/20 13:42 09/13/20 16:10 Acetaminophen 325 Mg Tablet PO 650 mg Q6H PRN Administration Mild/Mod Pain Or Temp >/= 101 Hydrocodone Bitart/Acetaminophen 1 tab 09/13/20 12:58 09/13/20 13:08 Hydrocodone-Acetaminophen 5-325 Mg Tablet PO 1 tab Q6H PRN Administration MODERATE PAIN Apixaban 5 mg 09/13/20 21:00 09/13/20 22:51 Apixaban 5 Mg Tablet PO Not Given BID@0900,2100 KAITLIN Vancomycin HCl 750 mg/ Sodium 250 mls @ 250 mls/hr 09/13/20 12:30 09/13/20 14:11 Chloride IV Infused Q24H K[facility]LIN Infusion Protocol Piperacillin Sod/Tazobactam 50 mls @ 12.5 mls/hr 09/13/20 18:00 09/14/20 06:37 Sod 3.375 gm/ Sodium Chloride IV Infused Q8H K[facility]ITLIN Infusion Protocol Latanoprost 1 drop 09/13/20 21:00 09/13/20 22:52 Latanoprost 0.005% Op Soln 2.5 Ml Btl EYE-RIGHT Not Given BEDTIME KAITLIN Timolol Maleate 1 drop 09/13/20 18:00 09/13/20 18:15 Timolol 0.5% Op Soln 5 Ml Btl EYE-RIGHT 1 drop BID KAITLIN Administration PFSH Acute PFSH: Medical History COVID-19 Emphysema lung Hypertension Nondisplaced fracture of neck of left femur Pneumonia due to COVID-19 virus Pulmonary embolism Surgical History History of repair of hip fracture Postoperative state Social History Smoking and tobacco status: never smoked Alcohol intake: never Vitals/I&O/Wt Vital Signs Temp Pulse Resp BP Pulse Ox 09/14/20 07:19 98.9 F 65 17 160/60 97 09/14/20 04:00 98.1 F 59 L 18 145/87 99 09/14/20 00:00 98.5 F 68 18 135/63 100 09/13/20 20:00 97.6 F 68 18 144/62 91 09/13/20 16:00 98.3 F 74 162/57 96 09/13/20 15:19 66 96 09/13/20 14:52 98.2 F 66 16 154/72 96 09/13/20 13:42 98.2 F 66 16 154/72 96 09/13/20 12:00 97.9 F 68 14 154/83 94 09/13/20 11:32 98.9 F 79 18 165/80 96 09/13/20 11:00 75 20 H 165/80 94 09/13/20 10:23 97.9 F 78 16 158/94 94 09/13/20 09:00 76 16 141/90 96 Intake and Output 09/13/20 09/14/20 09/14/20 22:59 06:59 14:59 Intake Total 100 / 400 50 / 450 120 / 120 Output Total 100 / 100 250 / 350 Balance 0 / 300 -200 / 100 120 / 120 Intake: IV 100 / 400 50 / 450 magnesium sulfate premix 2 gm 50 / 50 In 50 ml @ 50 mls/hr IV ONCE ONE Rx#:[id number] piperacillin-tazobactam 3.375 50 / 50 50 / 100 gm In sodium chloride 0.9% ( plus) 50 ml @ 12.5 mls/hr IV Q8H [facility] Rx#:[id number] Oral 0 / 0 120 / 120 Output: Urine 100 / 100 250 / 350 Other: # Voids 0 Weight last 48 hrs Weight 90 lb Physical Exam Narrative: EXAM NARRATIVE: General: alert, NAD HEENT: conj clear, EOMI, PERRL, mmm, Neck: supple, no meningismus Heme: no cervical LAP Pulmonary: CTAB, no wheezing, rhonchi, crackles Cardiovascular: rrr, nl s1s2, no mrg Abdomen: soft, nt, nd, no r/g, bs+ Extremities: pulses +, no edema, no c/c : no CVA tenderness Skin: intact, no rash MSK: no back or neck pain Neurologic: grossly intact Data Labs: Other Labs: Short CBC 09/14/20 Range/Units 05:23 WBC 5.7 (4.0-10.0) 10^3/ uL Hgb 9.2 L (11.5-15.3) g/dL Hct 28.1 L (37.0-47.0) % Plt Count 197 (130-400) 10^3/c mm BMP 09/13/20 09/14/20 08:30 05:23 Sodium 138 140 Potassium 3.0 L 4.0 Chloride 102 106 Carbon Dioxide 25 26 BUN 11 11 Creatinine 0.7 1.1 H Glucose 166 H 91 Calcium 8.8 8.4 L Liver Function 09/13/20 09/14/20 Range/Units 08:30 05:23 Total Bilirubin 0.4 0.6 (0.15-1.2) mg/dL AST 18 71 H (0-32) U/L ALT 12 36 H (0-33) U/L Alkaline Phosphata se 79 118 H (35-105) IU/L Albumin 3.4 L 2.9 L (3.5-5.2) g/dL Impressions Lumbar Spine CT 09/13/20 06:23 IMPRESSION: Compression fracture L1. See below. 1. Moderate diffuse degenerative disc disease. 2. Mild compression fracture involving the L1 vertebral body particularly superiorly. No significant retropulsed fragment. 3. Moderate to severe central canal narrowing L4-L5. Radiation Dose CTDIVOL = (mGy): DLP = 1010.85 (mGy-cm) Hip CT 09/13/20 06:26 IMPRESSION: 1. 3 cancellus screws stabilizing the proximal femoral/femoral neck fracture in near anatomical alignment. 2. Mild stranding in the soft tissues/edema. Likely related to the recent surgery. No large fluid collection. Follow-up if indicated clinically. Radiation Dose CTDIVOL = (mGy): DLP = 318.22 (mGy-cm) Abdomen/Pelvis CT 09/13/20 06:28 IMPRESSION: 1. No acute intra-abdominal process. No free fluid in the pelvis. No evidence of visceral injury. 2. No renal calcifications, hydronephrosis, or hydroureter. 3. Rounded masslike density left lower lobe. Please refer to the CT chest. Finding suspicious for a mass. Fibrotic changes lung bases 4. Prior surgical pin fixation of the right femur/femoral neck. Mild stranding in the soft tissues. 5. Subtle depression deformity of the L1 vertebral body particularly the anterior cortex. Mild compression fracture. No retropulsed fragment. This represents an interval change from the previous CT. No paravertebral edema however. Correlate. Radiation Dose CTDIVOL = (mGy): DLP = 692.87 (mGy-cm) Thoracic Spine CT 09/13/20 06:47 IMPRESSION: 1. No fracture. degenerative disc disease. 2. Masslike density left lower lobe. CT chest suggested. 3. Mild compression fracture involving the superior endplate of L1. Radiation Dose CTDIVOL = (mGy): DLP = 671.92 (mGy-cm) Cervical Spine CT 09/13/20 06:48 IMPRESSION: No acute cervical fracture. Radiation Dose CTDIVOL = (mGy): DLP = 249.81 (mGy-cm) Head CT 09/13/20 06:48 IMPRESSION: No acute intracranial abnormality. Radiation Dose CTDIVOL = (mGy): DLP = 686.43 (mGy-cm) Chest CT 09/13/20 08:13 IMPRESSION: 1. Masslike consolidation with central lucency in the LEFT lower lobe. New since 08/09/2020. Favor this is probably a lung abscess which has developed in the interval. Differential would include necrotic neoplasm. Consider aspiration pneumonia or other sources of infection as a possible etiology. 2. Although less than 1 cm the hilar and mediastinal lymph nodes have become slightly more prominent. 3. Moderate improvement in the groundglass attenuation throughout both lungs since 08/09/2020. 4. Mild cardiomegaly. 5. No pleural effusion. 6. Minimal acute L1 compression deformity. CTA 08/09/2020: 1. A few tiny filling defects in the right middle lobe subsegmental and subsegmental pulmonary arteries suspicious for pulmonary embolus. Proximal main pulmonary arteries are patent. 2. Shallow inspiration. 3. Small right and tiny left pleural effusion with compressive atelectasis in the lung bases. 4. Bilateral diffuse hazy groundglass infiltrates consistent with COVID19 pneumonia. A&P Assessment and plan (1) Respiratory failure with hypoxia: Status: Acute Qualifiers: Chronicity: acute on chronic Qualified Code(s): J96.21 - Acute and chronic respiratory failure with hypoxia (2) Pulmonary embolism: Status: Acute Qualifiers: Pulmonary embolism type: single subsegmental (without acute cor pulmonale) Qualified Code(s): I26.93 - Single subsegmental pulmonary embolism without acute cor pulmonale (3) Compression fracture: Status: Acute (4) Abscess of lung: Status: Acute Qualifiers: Laterality: left Lung location: lower lobe of lung Pulmonary abscess pneumonia presence: with pneumonia Qualified Code(s): J85.1 - Abscess of lung with pneumonia #Respiratory failure with hypoxia and patient with a recent small PE and history of COVID-19 pneumonia #Masslike consolidation with central lucency in the left lower lobe new since 08/09/2020 CT-likely lung abscess #Few tiny filling defects in RML subsegmental pulmonary arteries on CTA 08/09/2020 #minimal acute L1 compression deformity -Currently saturating 98 -100% on 1 L oxygen, can DC O2 supplementation -CT showed moderate improvement in infiltrates compared to 08/09/20 CT suggestive of resolving COVID-19 pneumonia -New mass like consolidation with central lucency in left lower lobe-likely abscess although patient does not have fevers or white count, low procalcitonin-very rare for malignancy to grow fast-we will treat it as contained infection with antibiotics -Agree with vancomycin and Zosyn coverage and will repeat CT in 3 days to see for resolution -Continue Eliquis for at least 3 months for subsegmental PE and then discontinue; patient is high risk for falls and needs fall precautions in hospital and at home. Recommendations conveyed to hospitalist, RN taking care of the patient Consult Attestations Medical Necessity Statement: Patient requires IV antibiotics for left lung abscess needs hospitalization Time Spent in Patient Care: Greater than 35 minutes (>than 50% of time spent in counselling and/or direct pt care on unit). Critical Care Time: Critical Care Time (min): 45 Coding Level of Care Code New Pt Acute Paint Dipper for Chg Fwd Patient Type New History Comprehensive Exam Comprehensive Medical Decision Making Moderate Complexity Diagnoses Respiratory failure with hypoxia J96.21 Chronicity: acute on chronic Pulmonary embolism I26.93 Pulmonary embolism type: single subsegmental (without acute cor pulmonale) Compression fracture Abscess of lung J85.1 Laterality: left Lung location: lower lobe of lung Pulmonary abscess pneumonia presence: with pneumonia Time Spent (min) 45
[2020-09-14] MEDS: timolol 0.5% Op Soln 5 mL Btl 1 DROP EYE-RIGHT ×2 (08:33→17:39)
--- NOTE | 2020-09-14 10:26 | P.PN_ITS ---
Subjective Subjective: Interval history: Mira garcia she could get breakfast quick enough, or her pain medicine. She states she has some low back pain. Medications: Reviewed: Yes Vitals/I&O/Wt Last Vital Signs Temp 98.9 F 09/14/20 07:19 Pulse 65 09/14/20 07:19 Resp 17 09/14/20 07:19 BP 160/60 09/14/20 07:19 Pulse Ox 97 09/14/20 07:19 09/13/20 09/14/20 09/14/20 22:59 06:59 14:59 Intake Total 100 / 400 50 / 450 120 / 120 Output Total 100 / 100 250 / 350 Balance 0 / 300 -200 / 100 120 / 120 Weight last 48 hrs Weight 40.823 kg Physical Exam Narrative: EXAM NARRATIVE: General exam no apparent distress Neck is supple no lymphadenopathy or thyromegaly Cardiovascular regular rate and rhythm without murmur, no S3 or S4 Lungs clear no wheezing or crackles Abdomen is soft with positive bowel sounds. No obvious organomegaly Extremities no cyanosis clubbing or edema, cap refill brisk. Hip fracture repair site well-healed. Data : 09/14/20 05:23 09/14/20 05:23 Micro: Microbiology 09/13/20 15:00 MRSA Culture - Final Nose A&P Assessment and plan (1) Abscess of lung: Continue vancomycin and Zosyn Speech therapy consult Appreciate pulmonary consultation Plan on repeat CT on Thursday. Status: Acute Qualifiers: Laterality: left Lung location: lower lobe of lung Pulmonary abscess pneumonia presence: with pneumonia Qualified Code(s): J85.1 - Abscess of lung with pneumonia (2) Compression fracture: Physical therapy consultation Fall precautions Status: Acute (3) Pulmonary embolism: Continue patient's Eliquis Status: Acute Qualifiers: Pulmonary embolism type: single subsegmental (without acute cor pulmonale) Qualified Code(s): I26.93 - Single subsegmental pulmonary embolism without acute cor pulmonale Additional A&P Information L1 compression fracture. Physical therapy. Work on pain control. [facility]. Hypokalemia. Supplemented and resolved Hypomagnesemia, supplement History of COVID-19 pneumonia. Full code Eliquis will suffice for DVT prophylaxis No need for laboratory tomorrow. Could consider Thursday. Attestations Medical Necessity Statement*: Needs continued hospitalization for IV antibiotics secondary to lung abscess. Coding Level of Care Code Acute Mattress Inspector for Chg Fwd Diagnoses Abscess of lung J85.1 Laterality: left Lung location: lower lobe of lung Pulmonary abscess pneumonia presence: with pneumonia Compression fracture Pulmonary embolism I26.93 Pulmonary embolism type: single subsegmental (without acute cor pulmonale)
[2020-09-14] MEDS: apixaban 5 mg Tablet PO (12:03)
--- NOTE | 2020-09-14 13:57 | PC.CHAP ---
Pastoral Care Encounter/Spiritual Assessment Type of Contact [] Declined framing mill operator helper visit [] Patient/Family/Request visit [] Outpatient visit [] Follow-up visit [] Physician referral [] Code/Alert [xx] Routine visit [] Staff referral [] Actively dying [] Patient sleeping [] Family support [] [] Out of room [] Palliative care [] [] Receiving care in room [] Pre-surgical visit [] Trauma [] Long length of stay [] ICU visit [] Other: Relational/Emotional Strength [xx] Patient feels connected with others/family/visitors/staff [] Distress [] Loneliness/isolation [] Abandonment Spirituality of Patient [xx] Person of Jennifer xx[] Attends Advent of their Jennifer [xx] Believes in Prayer [xx] Reads Bible or Church materials [] There are Spiritual issues to be addressed Silk Screen Printer Interventions [xx] Prayer [xx] Active listening [xx] Non-anxious presence [] Spiritual/emotional support [] Crisis/trauma care [] Spiritual counseling [] Bereavement support [] Provided bereavement packet [] Provided Bible/devotional materials [] Provided toy/stuffed animal, coloring book to patient or family member [] Provided Communion [] Anointing/[place] [] Salvation [xx] Completed spiritual assessment [] Other: Impact on Illness or Injury [] Angry [] Fearful [] Anxious [] Often cries [] Exhaustion [] Unable to work [] Unable to attend yazdanism [] Unable to walk/stand [] Unable to read [] Unable to drive [] Unable to eat/drink [] Unable to sleep [] Unable to be with family [] Patient intubated [] Other: Summary Patient was very pleasant. She wanted conversation as well as prayer. Silk Screen Printer prayed for her and she prayed for framing mill operator helper. Time spent with patient 10 minutes
[2020-09-14] MEDS: vancomycin 750 MG in sodium chloride 0.9% 250 ML 250 MG IV (15:00)
[2020-09-14] MEDS: latanoprost 0.005% Op Soln 2.5 mL Btl 1 DROP EYE-RIGHT (21:24)
[2020-09-15] MEDS: piperacillin-tazobactam 3.375 GM in sodium chloride 0.9% (plus) 50 ML IV ×3 (02:08→18:16)
[2020-09-15 04:00] VITALS: BP 156/70; PULSE 63; RESP 16; TEMP 37.1; O2SAT 90
[2020-09-15] MEDS: HYDROcodone-acetaminophen 5-325 mg Tablet 1 TAB PO ×2 (06:16→20:50)
[2020-09-15 08:00] VITALS: BP 141/65; PULSE 67; RESP 18; TEMP 36.3; O2SAT 92
[2020-09-15] MEDS: ondansetron 2 mg/ML SDV 2 mL 4 MG IVP (10:06)
[2020-09-15] MEDS: apixaban 5 mg Tablet PO ×2 (10:06→20:50)
[2020-09-15] MEDS: timolol 0.5% Op Soln 5 mL Btl 1 DROP EYE-RIGHT ×2 (10:06→18:20)
[2020-09-15 12:00] VITALS: BP 164/67; PULSE 74; RESP 16; TEMP 36.6; O2SAT 91
--- NOTE | 2020-09-15 15:21 | P.PN_ITS ---
Subjective Subjective: Interval history: Patient denies any shortness of breath at rest or chest pain. She does get dyspneic with exertion. She denies cough. Denies fever or chills. Denies diaphoresis. Overall reports being weak and reports that she continues to have low back pain with certain movement. Her appetite and oral intake are adequate. Imaging reviewed. Questionable abscess in left lower lobe versus necrotic neoplasm. Medications: Reviewed: Yes Vitals/I&O/Wt Last Vital Signs Temp 97.8 F 09/15/20 12:00 Pulse 74 09/15/20 12:00 Resp 16 09/15/20 12:00 BP 164/67 09/15/20 12:00 Pulse Ox 91 09/15/20 12:00 09/15/20 09/15/20 09/15/20 06:59 14:59 22:59 Intake Total 50 / 880 290 / 290 Output Total 300 / 300 Balance -250 / 580 290 / 290 Physical Exam Narrative: EXAM NARRATIVE: Clear lungs and regular heart. No lower extremity edema. Abdomen is soft and nontender with positive bowel sounds. Data : 09/14/20 05:23 09/14/20 05:23 Micro: Microbiology 09/13/20 15:00 MRSA Culture - Final Nose A&P Assessment and plan (1) Abscess of lung: Continue vancomycin and Zosyn Speech therapy consult Appreciate pulmonary consultation Plan on repeat CT on Thursday. Status: Acute Qualifiers: Laterality: left Lung location: lower lobe of lung Pulmonary abscess pneumonia presence: with pneumonia Qualified Code(s): J85.1 - Abscess of lung with pneumonia (2) Compression fracture: Possibly pathologic Physical therapy consultation Fall precautions Status: Acute (3) Pulmonary embolism: Continue patient's Eliquis Status: Acute Qualifiers: Pulmonary embolism type: single subsegmental (without acute cor pulmonale) Qualified Code(s): I26.93 - Single subsegmental pulmonary embolism without acute cor pulmonale Additional A&P Information L1 compression fracture. Physical therapy. Work on pain control. Plan is to send to sn[facility]. Hypokalemia. Supplemented and resolved Hypomagnesemia, supplement History of COVID-19 pneumonia. PLAN: Continue Zosyn and vancomycin for now Add Protonix for GI protection Liver enzyme elevation was noted. We will obtain echocardiogram to evaluate patient's dyspnea on exertion as well as right heart for any evidence of cardioembolic event Plan to repeat CT on Thursday Full code Yas will suffice for DVT prophylaxis Attestations Medical Necessity Statement*: Patient with findings concerning for pulmonary abscess requires close inpatient monitoring and treatment. Coding Level of Care Code Acute Cylinder Press Operator Apprentice for Chg Fwd Diagnoses Abscess of lung J85.1 Laterality: left Lung location: lower lobe of lung Pulmonary abscess pneumonia presence: with pneumonia Compression fracture Pulmonary embolism I26.93 Pulmonary embolism type: single subsegmental (without acute cor pulmonale)
[2020-09-15 16:00] VITALS: BP 132/65; PULSE 69; RESP 18; TEMP 36.6; O2SAT 93
[2020-09-15] MEDS: vancomycin 750 MG in sodium chloride 0.9% 250 ML 250 MG IV (16:25)
[2020-09-15 19:47] VITALS: BP 176/71; PULSE 70; RESP 16; TEMP 37.4; O2SAT 90
[2020-09-15] MEDS: latanoprost 0.005% Op Soln 2.5 mL Btl 1 DROP EYE-RIGHT (21:15)
[2020-09-16] VITALS: BP 146/72; PULSE 60; RESP 17; TEMP 36.4; O2SAT 91
[2020-09-16] MEDS: piperacillin-tazobactam 3.375 GM in sodium chloride 0.9% (plus) 50 ML IV ×3 (02:12→18:04)
[2020-09-16 04:00] VITALS: BP 159/72; PULSE 63; RESP 17; TEMP 36.1; O2SAT 91
[2020-09-16 06:21] LABS: Basophils % 0.3 %; Eosinophils # 0.2 10^3/uL (0.0-0.8); Eosinophils % 3.1 %; Hematocrit 25.7 % (37.0-47.0); Hemoglobin 8.5 g/dL (11.5-15.3); Lymphocytes # 1.6 10^3/uL (0.8-4.8); Lymphocytes % 25.7 %; Mean Corpuscular HGB Conc 33.1 g/dL (30.0-36.0); Mean Corpuscular Hemoglobin 33.2 pg (28.0-34.0); Mean Corpuscular Volume 100.4 fL (81-99); Monocytes # 0.9 10^3/uL (0.2-0.9); Monocytes % 14.2 %; Neutrophils # 3.43 10^3/uL (1.8-7.7); Neutrophils % 56.2 %; Nucleated Red Blood Cells % 0 %; Platelet Count 176 10^3/cmm (130-400); Red Blood Count 2.56 10^6/uL (4.1-5.3); Red Cell Distribution Width 13.7 % (12.1-15.1); White Blood Count 6.1 10^3/uL (4.0-10.0)
[2020-09-16 06:49] LABS: Alanine Aminotransferase 16 U/L (0-33); Albumin Level 2.7 g/dL (3.5-5.2); Alkaline Phosphatase 91 IU/L (35-105); Anion Gap 11.3 (5-19); Aspartate Amino Transferase 15 U/L (0-32); Blood Urea Nitrogen 10 mg/dL (8-23); C Reactive Protein 74.5 mg/L (0.0-4.9); Calcium 7.9 mg/dL (8.5-10.5); Carbon Dioxide 24 mmol/L (22-29); Chloride 105 mmol/L (98-107); Globulin 2.7 g/dL (1.3-4.6); Glucose 87 mg/dL (65-115); Osmolality Calculated 282 mOsm/kg (285-295); Potassium 3.3 mmol/L (3.5-5.1); Sodium 137 mmol/L (136-145); Thyroid Stimulating Hormone 2.04 uIU/mL (0.27-4.20); Total Bilirubin 0.5 mg/dL (0.15-1.2); Total Protein 5.4 g/dL (6.6-8.7)
[2020-09-16 07:44] VITALS: BP 156/70; PULSE 65; RESP 18; TEMP 36.6; O2SAT 92
[2020-09-16 07:51] LABS: Erythrocyte Sedimentation Rate 79 mm/hr (0-15)
[2020-09-16] MEDS: apixaban 5 mg Tablet PO ×2 (08:22→21:26)
[2020-09-16] MEDS: pantoprazole DR 40 mg Tablet PO (08:22)
[2020-09-16] MEDS: timolol 0.5% Op Soln 5 mL Btl 1 DROP EYE-RIGHT ×2 (09:47→18:05)
[2020-09-16] MEDS: HYDROcodone-acetaminophen 5-325 mg Tablet 1 TAB PO ×2 (09:48→21:34)
--- NOTE | 2020-09-16 10:50 | PC.SOCIAL ---
IMM Update Pg.2 of IMM Updated and reviewed with patient who verbalized understanding. Copy provided.
[2020-09-16 11:08] VITALS: BP 156/71; PULSE 66; RESP 18; TEMP 36.7; O2SAT 91
[2020-09-16 15:09] VITALS: BP 154/70; PULSE 65; RESP 18; TEMP 36.6; O2SAT 92
[2020-09-16] MEDS: vancomycin 750 MG in sodium chloride 0.9% 250 ML 250 MG IV (15:14)
--- NOTE | 2020-09-16 15:34 | USCV_ITS ---
Mira Nicholas Age: 85 Gender: F : 1935 Exam Date: 09/16/2020 10:15 Ordering Phys: Dilip Bautista MD Technologist: Laura Tolentino Exam Location[place] [facility] [place] Indication: Dypsnea BP: 156 / 70 HR: 56 Rhythm: Sinus Technical Quality: Fair MEASUREMENTS (Male / Female) Normal Values 2D ECHO LV Diastolic Diameter PLAX 3.6 cm 4.2 - 5.9 / 3.9 - 5.3 cm LV Systolic Diameter PLAX 2.7 cm LV Chamber Size 3.2 cm IVS Diastolic Thickness 1.1 cm 0.6 - 1.0 / 0.6 - 0.9 cm IVS Systolic Thickness 1.2 cm LVPW Diastolic Thickness 0.8 cm 0.6 - 1.0 / 0.6 - 0.9 cm LVPW Systolic Thickness 1.1 cm RV Chamber Size 2.6 cm LVOT Diameter 1.8 cm LV Ejection Fraction 2D Teich 52.0 % LV Ejection Fraction MOD 2C 59.1 % LV Ejection Fraction 2C AL 62.9 % LA Diameter 2.8 cm LA Width 2.0 cm LA Height 4.0 cm RA Width 2.5 cm RA Height 3.8 cm Aorta at Sinotubular Diameter 2.9 cm M-MODE LV Diastolic Diameter MM 5.1 cm 4.2 - 5.9 / 3.9 - 5.3 cm LV Systolic Diameter MM 3.3 cm LV Ejection Fraction MM Teich 63.4 % IVS Diastolic Thickness MM 0.9 cm 0.6 - 1.0 / 0.6 - 0.9 cm IVS Systolic Thickness MM 1.2 cm LVPW Diastolic Thickness MM 0.9 cm 0.6 - 1.0 / 0.6 - 0.9 cm LVPW Systolic Thickness MM 0.9 cm RV Diastolic Diameter MM 0.6 cm Aortic Annulus Diameter 3.1 cm LA Ao Ratio MM 1.0 MV E Point Septal Separation 0.3 cm DOPPLER AV Peak Velocity 118.0 cm/s LVOT Peak Velocity 95.0 cm/s AV Area Cont Eq vti 2.2 cm squared AV Area Cont Eq pk 2.2 cm squared MV Area PHT 5.0 cm squared Mitral E to A Ratio 1.2 MV E' Velocity 59.5 cm/s Mitral E to MV E' Ratio 16.8 Mitral E to LV E' Lateral Ratio 14.2 Mitral E to LV E' Septal Ratio 20.5 TR Peak Velocity 286.8 cm/s TR Peak Gradient 32.9 mmHg TV Peak E Velocity 62.0 cm/s Right Atrial Pressure 3.0 mmHg Pulmonary Artery Systolic Pressu 35.9 mmHg PV Peak Velocity 60.0 cm/s RV Acceleration Time 0.1 s RV Ejection Time 0.3 s RV AcT/ET 0.3 FINDINGS Left Ventricle Normal left ventricular cavity size. Normal left ventricular systolic function. No regional wall motion abnormalities. Left ventricular ejection fraction is estimated at 63 %. Grade II/IV diastolic dysfunction, moderately elevated filling pressures. Right Ventricle The right ventricle is normal in size and function. Right Atrium The right atrium is normal in size. Left Atrium The left atrium is normal in size. Mitral Valve Moderately thickened mitral valve. Moderate mitral annular calcification. No mitral valve stenosis. Trace mitral valve regurgitation. Aortic Valve Structurally normal aortic valve without significant sclerosis or stenosis. There is no aortic regurgitation. Tricuspid Valve [id number]-[id number] tricuspid valve regurgitation. Pulmonic Valve Structurally normal pulmonic valve without significant stenosis. There is no pulmonic regurgitation. Pericardium Normal pericardium without effusion. Aorta Normal ascending aorta dimension. CONCLUSIONS 1-Normal left ventricular cavity size. Normal left ventricular systolic function. No regional wall motion abnormalities. Left ventricular ejection fraction is estimated at 63 %. Grade II/IV diastolic dysfunction, moderately elevated filling pressures. 2-Moderately thickened mitral valve. Moderate mitral annular calcification. No mitral valve stenosis. Trace mitral valve regurgitation. 2-Bzzu-ou-moderate tricuspid valve regurgitation. 4-Structurally normal aortic valve without significant sclerosis or stenosis. There is no aortic regurgitation. 5-There is no pericardial effusion. 4-Pulmonary artery systolic pressure is within normal limits. 5-Right atrial pressure is around 5 mm of mercury. 6-There are no prior echocardiogram studies to compare. Terri Quinones MD (Electronically Signed) Final Date: 16 September 2020 15:08 S
--- NOTE | 2020-09-16 15:45 | P.PN_ITS ---
Subjective Subjective: Interval history: Patient continues to have low back pain. She was unhappy that it took some time for analgesic to be given when she asked. Reports that when she is not moving her pain is minimal. Denies shortness of breath or chest pain. Denies abdominal pain. Hemoglobin dropped down to 8.5. Medications: Reviewed: Yes Vitals/I&O/Wt Last Vital Signs Temp 97.9 F 09/16/20 15:09 Pulse 65 09/16/20 15:09 Resp 18 09/16/20 15:09 BP 154/70 09/16/20 15:09 Pulse Ox 92 09/16/20 15:09 09/16/20 09/16/20 09/16/20 06:59 14:59 22:59 Intake Total 100 / 1000 850 / 850 Output Total 550 / 550 400 / 400 Balance -450 / 450 450 / 450 Physical Exam Narrative: EXAM NARRATIVE: Clear lungs and regular heart. No lower extremity edema. Abdomen is soft and nontender with positive bowel sounds. Data : 09/16/20 05:50 09/16/20 05:50 A&P Assessment and plan (1) Abscess of lung: Continue vancomycin and Zosyn Speech therapy consult Appreciate pulmonary consultation Plan on repeat CT on Thursday. Status: Acute Qualifiers: Laterality: left Lung location: lower lobe of lung Pulmonary abscess pneumonia presence: with pneumonia Qualified Code(s): J85.1 - Abscess of lung with pneumonia (2) Compression fracture: Possibly pathologic Physical therapy consultation Fall precautions Status: Acute (3) Pulmonary embolism: Continue patient's Eliquis Status: Acute Qualifiers: Pulmonary embolism type: single subsegmental (without acute cor pulmonale) Qualified Code(s): I26.93 - Single subsegmental pulmonary embolism without acute cor pulmonale Additional A&P Information L1 compression fracture. Physical therapy. Work on pain control. Plan is to send to long term. Hypokalemia. Supplemented and resolved Hypomagnesemia, supplement History of COVID-19 pneumonia. PLAN: Continue antibiotic and obtain CT scan of the chest in a.m. Echocardiogram shows mild to moderate tricuspid valve regurgitation. Patient had 2 out of 4 diastolic dysfunction Replete potassium. Continue with pain control and physical therapy. Full code Eliquis will suffice for DVT prophylaxis Attestations Medical Necessity Statement*: Patient with concern for pulmonary abscess requires close inpatient monitoring treatment and evaluation. Coding Level of Care Code Acute Pie Dough Roller for Chg Fwd Diagnoses Abscess of lung J85.1 Laterality: left Lung location: lower lobe of lung Pulmonary abscess pneumonia presence: with pneumonia Compression fracture Pulmonary embolism I26.93 Pulmonary embolism type: single subsegmental (without acute cor pulmonale)
[2020-09-16] MEDS: potassium chloride ER 20 mEq Tablet 40 MEQ PO (16:01)
[2020-09-16 16:07] LABS: Vancomycin Trough 9.3 ug/mL (10-15)
--- NOTE | 2020-09-16 17:50 | PC.PHAR ---
Vancomycin trough level on 750mg IVPB every 24 hours is 9.3. Dosage is increased to 1000mg IVPB every 24 hours with another trough to be obtained before the fourth one gram dose to determine if further adjustment is needed.
[2020-09-16 19:59] VITALS: BP 167/68; PULSE 77; RESP 18; TEMP 36.1; O2SAT 90
[2020-09-16] MEDS: latanoprost 0.005% Op Soln 2.5 mL Btl 1 DROP EYE-RIGHT (21:26)
[2020-09-17] VITALS: BP 167/76; PULSE 62; RESP 17; TEMP 36.2; O2SAT 96
[2020-09-17] MEDS: piperacillin-tazobactam 3.375 GM in sodium chloride 0.9% (plus) 50 ML IV ×2 (01:22→08:51)
--- NOTE | 2020-09-17 02:45 | PC.NURSE ---
missed the hat
[2020-09-17 04:00] VITALS: BP 167/77; PULSE 57; RESP 16; TEMP 36.1; O2SAT 96
[2020-09-17 05:00] LABS: Basophils % 0.6 %; Eosinophils # 0.2 10^3/uL (0.0-0.8); Hematocrit 27.6 % (37.0-47.0); Lymphocytes # 1.5 10^3/uL (0.8-4.8); Lymphocytes % 28.5 %; Mean Corpuscular HGB Conc 32.6 g/dL (30.0-36.0); Mean Corpuscular Hemoglobin 32.8 pg (28.0-34.0); Mean Corpuscular Volume 100.7 fL (81-99); Mean Platelet Volume 10.1 fL (7.4-10.4); Monocytes # 0.8 10^3/uL (0.2-0.9); Monocytes % 15.8 %; Neutrophils # 2.65 10^3/uL (1.8-7.7); Neutrophils % 50.3 %; Nucleated Red Blood Cells % 0 %; Platelet Count 192 10^3/cmm (130-400); Red Blood Count 2.74 10^6/uL (4.1-5.3); Red Cell Distribution Width 13.8 % (12.1-15.1); White Blood Count 5.3 10^3/uL (4.0-10.0)
[2020-09-17 05:20] LABS: Alanine Aminotransferase 14 U/L (0-33); Albumin Level 2.7 g/dL (3.5-5.2); Alkaline Phosphatase 86 IU/L (35-105); Anion Gap 11.1 (5-19); Aspartate Amino Transferase 14 U/L (0-32); Blood Urea Nitrogen 8 mg/dL (8-23); Carbon Dioxide 23 mmol/L (22-29); Chloride 108 mmol/L (98-107); Globulin 2.8 g/dL (1.3-4.6); Glucose 93 mg/dL (65-115); Magnesium 1.8 mg/dL (1.7-2.3); Osmolality Calculated 284 mOsm/kg (285-295); Potassium 4.1 mmol/L (3.5-5.1); Sodium 138 mmol/L (136-145); Total Bilirubin 0.3 mg/dL (0.15-1.2); Total Protein 5.5 g/dL (6.6-8.7)
--- NOTE | 2020-09-17 05:25 | PC.NURSE ---
Patient voided and missed hat.
[2020-09-17 06:03] LABS: Ferritin 606 ng/mL (15-150); Iron 32 ug/dL (37-145); Percent Saturation 22.8 % (20-50); Total Iron Binding Capacity 140 mcg/dl; Unsaturated Iron Binding 108 ug/dL (112-347)
[2020-09-17 06:18] LABS: Vitamin B12 762 pg/mL (232-1245)
--- NOTE | 2020-09-17 07:00 | CT_ITS ---
WS: [id number] CT CHEST TECHNIQUE: Contrast enhanced CT of the chest with coronal and sagittal reformatted images. CLINICAL INFORMATION: Concerning lesion for abscess versus necrotizing neoplasm COMPARISON: September 13, 2020 DLP: 296.[address] scans at [facility] use at least one of these dose optimization techniques: automat ed exposure control; mA and/or kV adjustment per patient size (includes targeted exams where dose is matched to clinical indication); or iterative reconstruction. FINDINGS: Left lower lobe low-attenuation pulmonary mass is unchanged since September 13, 2020. Persistent central low attenuation. Differential considerations are unchanged to include abscess or necrotic neoplasm. T his measures approximately 3.6 x 2.5 cm. Trace bilateral pleural fluid. No mediastinal or hilar lymphadenopathy. Cardiomegaly. Moderate chronic emphysematous changes with in terstitial thickening and fibrosis in both lungs. No new pulmonary infiltrates. Aortic calcification. Coronary calcification. Adrenal glands are normal. Renal cortical atrophy. Diffuse fatty infiltration liver. Prominent common bile duct is unchanged. L1 compression fracture appears slightly progressed compared to previous wit h more compression of the superior endplate today. Slight retropulsion of the posterior superior breonna ex. IMPRESSION: 1. Left lower lobe pulmonary mass is unchanged since September 14, 2019 2. Differential considerations are unchanged including lung abscess or necrotic neoplasm. 3. No mediastinal or hilar lymphadenopathy. 4. Slight progression of the L1 compression fracture with more compression of the superior endplate today and mild retropulsion of the posterior superior cortex. 5. Stable groundglass infiltrates and interstitial fibrosis both lungs. Trace bilateral pleural flui d. 6. Cardiomegaly.
[2020-09-17 07:02] LABS: Folate Level 12.6 ng/mL (4.8-37.3)
--- NOTE | 2020-09-17 07:10 | PC.NURSE ---
Antonino with CT called and said patient has CT with contrast today. Antonino said to call CT when ready to bring patient down. Care nurse SIOMARA Navarrete notified.
[2020-09-17 07:35] VITALS: BP 171/69; PULSE 60; RESP 17; TEMP 36.8; O2SAT 96
[2020-09-17] MEDS: pantoprazole DR 40 mg Tablet PO (08:47)
[2020-09-17] MEDS: apixaban 5 mg Tablet PO (08:47)
[2020-09-17] MEDS: timolol 0.5% Op Soln 5 mL Btl 1 DROP EYE-RIGHT (08:52)
[2020-09-17] MEDS: HYDROcodone-acetaminophen 5-325 mg Tablet 1 TAB PO ×2 (08:58→15:41)
[2020-09-17] MEDS: iodixanol 320 mg/mL 100mL Btl IV (10:37)
[2020-09-17 11:44] VITALS: BP 171/74; PULSE 61; RESP 18; TEMP 36.5; O2SAT 98
--- NOTE | 2020-09-17 13:05 | P.DS_ITS ---
Discharge Providers Date of Admission: 09/13/20 11:01 Date of Discharge: September 17, 2020 Attending Provider at Admission: Jasmeet Buchanan MD Attending Provider at Discharge: Dilip Bautista MD Primary Care Provider: SONYA Cristobal Diagnoses at Discharge Discharge Diagnosis (1) Abscess of lung: Status: Acute Permanent problem details: [place] unlikely. This appears to be a malignancy. Qualifiers: Laterality: left Lung location: lower lobe of lung Pulmonary abscess pneumonia presence: with pneumonia Qualified Code(s): J85.1 - Abscess of lung with pneumonia (2) Compression fracture: Status: Acute (3) Pulmonary embolism: Status: Acute Qualifiers: Pulmonary embolism type: single subsegmental (without acute cor pulmonale) Qualified Code(s): I26.93 - Single subsegmental pulmonary embolism without acute cor pulmonale Reason for Visit Reason for Visit: low back pain from fall Hospital Course Hospital Course Patient presented post fall and found to have L1 compression fracture. She was noted to have concerning pulmonary lesion which felt to be an abscess versus neoplasm. Patient was treated with antibiotics and repeat CT scan did not show any change. I have discussed with Dr. Rodriguez who will see patient post discharge to have bronchoscopy and biopsy. Patient this morning denies any shortness of breath or chest pain. Denies abdominal pain or problems with bowel movement. Her appetite and oral intake are good. Physical Exam Narrative: EXAM NARRATIVE: Lungs are clear and heart is regular. Abdomen soft and nontender with positive bowel sounds. No lower extremity edema. Patient is alert and oriented x3. Discharge Data Data Completed and Pending: Completed Studies During Hospitalization Category Date Time Status CT abdomen pelvis wo con [id number] Stat Cat Scan 09/13/20 06:[address] cervical spin wo con* [id number] Stat Cat Scan 09/13/20 06:[address] chest w con* 7 1260 Routine Cat Scan 09/17/20 07:[address] chest w con* 7 1260 Stat Cat Scan 09/13/20 08:[address] head wo con* 7 0450 Stat Cat Scan 09/13/20 06:[address] hip RT wo con* [id number] Stat Cat Scan 09/13/20 06:[address] lumbar spine w o con* [id number] Stat Cat Scan 09/13/20 06:[address] thoracic spin wo con* [id number] Stat Cat Scan 09/13/20 06:47 Completed CV echo complete* [id number] Routine Ultrasound 09/16/20 15:34 Completed Pending at discharge Category Date Time Status Complete Blood Co unt w/Auto AM LABS Lab 09/18/20 04:00 Ordered Complete Blood Co unt w/Auto AM LABS Lab 09/19/20 04:00 Ordered Comprehensive Met abolic Panel AM LA BS Lab 09/18/20 04:00 Ordered Comprehensive Met abolic Panel AM LA BS Lab 09/19/20 04:00 Ordered Magnesium AM LABS Lab 09/18/20 04:00 Ordered Magnesium AM LABS Lab 09/19/20 04:00 Ordered Vancomycin Trough Timed Lab 09/20/20 14:00 Ordered Labs from last 24 hours 09/17/20 09/17/20 09/17/20 04:16 04:16 04:16 WBC 5.3 RBC 2.74 L Hgb 9.0 L Hct 27.6 L MCV 100.7 H MCH 32.8 MCHC 32.6 RDW 13.8 Plt Count 192 MPV 10.1 Neut % (Auto) 50.3 Lymph % (Auto) 28.5 [place] % (Auto) 15.8 Eos % (Auto) 4.0 Baso % (Auto) 0.6 Neut # (Auto) 2.65 Lymph # (Auto) 1.5 [place] # (Auto) 0.8 Eos # (Auto) 0.2 Baso # (Auto) 0.0 Nucleated RBC % (a uto) 0 Nucleated RBCs # 0.0 Sodium 138 Potassium 4.1 Chloride 108 H Carbon Dioxide 23 Anion Gap 11.1 BUN 8 Creatinine 1.0 H GFR Calculation Not Reportable Glucose 93 Calculated Osmolal ity 284 L Calcium 8.0 L Magnesium 1.8 Iron 32 L TIBC 140 % Saturation 22.8 Unsat Iron Binding 108 L Ferritin 606 H Total Bilirubin 0.3 AST 14 ALT 14 Alkaline Phosphata se 86 Total Protein 5.5 L Albumin 2.7 L Globulin 2.8 Vitamin B12 762 Folate 12.6 Vancomycin Trough 09/16/20 14:15 WBC RBC Hgb Hct MCV MCH MCHC RDW Plt Count MPV Neut % (Auto) Lymph % (Auto) [place] % (Auto) Eos % (Auto) Baso % (Auto) Neut # (Auto) Lymph # (Auto) [place] # (Auto) Eos # (Auto) Baso # (Auto) Nucleated RBC % (a uto) Nucleated RBCs # Sodium Potassium Chloride Carbon Dioxide Anion Gap BUN Creatinine GFR Calculation Glucose Calculated Osmolal ity Calcium Magnesium Iron TIBC % Saturation Unsat Iron Binding Ferritin Total Bilirubin AST ALT Alkaline Phosphata se Total Protein Albumin Globulin Vitamin B12 Folate Vancomycin Trough 9.3 L Vitals: Last Vital Signs Temp 97.7 F 09/17/20 11:44 Pulse 61 09/17/20 11:44 Resp 18 09/17/20 11:44 BP 171/74 09/17/20 11:44 Pulse Ox 98 09/17/20 11:44 Discharge Plan Discharge Patient Disposition: Xfer SNF Condition: Stable Prescriptions: New hydrocodone-acetaminophen 5-325 mg Tablet 1 tab PO Q4H PRN (Reason: Moderate Pain) Qty: 20 RF: 0 Eliquis 5 mg Tablet 5 mg PO BID@0900,2100 Qty: 60 RF: 0 Continued latanoprost 0.005 % drops 1 drp ophthalmic (eye) QPM RF: 0 timolol maleate 0.5 % drops 1 drp ophthalmic (eye) BID RF: 0 coenzyme Q10 [CoQ-10] 100 mg Capsule 100 mg PO DAILY RF: 0 magnesium 1 tab PO DAILY RF: 0 Discontinued Eliquis 5 mg tablet See Rx Instructions .ROUTE .COMPLEX Qty: 90 RF: 0 Discharge Orders: Discharge Order (Routine); Ordered 09/17/20 Ordered By: Dilip Bautista Referrals: DatarAnselmo MD [Physician] - 1 week Dena Bro FNP-C [Primary Care Provider] - 4-7 days Discharge Diet: Advance as tolerated Discharge Activity: Increase activity as tolerated Patient Instructions: Pulmonary Embolism (DC), Hypoxia (GEN), Lung Abscess (DC) Activity Restrictions/Additional Instructions: Please call your doctor or present to emergency department if your condition worsens or you develop diarrhea, lightheadedness, fatigue or see blood in your s tool or black stool. Discharge Attestations Time Spent in Discharge Care*: less than 30 min Quality Metrics Clinical Quality Measures During this hospital stay, did patient experience: None Coding Level of Care Code Acute Seed Cleaning Manager for Janag Fwd Diagnoses Abscess of lung J85.1 Laterality: left Lung location: lower lobe of lung Pulmonary abscess pneumonia presence: with pneumonia Compression fracture Pulmonary embolism I26.93 Pulmonary embolism type: single subsegmental (without acute cor pulmonale)
[2020-09-17 15:17] VITALS: BP 170/77; PULSE 64; RESP 18; TEMP 36.5; O2SAT 95
[2020-09-17 17:54] VITALS: BP 170/77; PULSE 64; RESP 18; TEMP 36.5; O2SAT 95
== END 2020-09-17 15:00 | disposition skilled nursing facility (03) | DRG 177 ==
LOC: ER 08:21 → MEDSURG 11:16
PROVIDERS: Admitting Provider Internal Medicine; Emergency Provider Family Medicine; PCP Nurse Practitioner; Visit Provider Internal Medicine
DX: J85.1 Abscess of lung with pneumonia (principal); I26.93 Single subsegmental thrombotic pulmonary embolism without acute cor pulmonale; J96.21 Acute and chronic respiratory failure with hypoxia; S32.010A Wedge compression fracture of first lumbar vertebra, initial encounter for closed fracture; W01.0XXA Fall on same level from slipping, tripping and stumbling without subsequent striking against object, initial encounter; Z86.16 Personal history of COVID-19; Z87.440 Personal history of urinary (tract) infections; J43.9 Emphysema, unspecified; I10 Essential (primary) hypertension; E87.6 Hypokalemia; R59.0 Localized enlarged lymph nodes; E83.42 Hypomagnesemia
CPT/HCPCS: 36415; 70450; 71260; 72125; 72128; 72131; 73700; 74176; 80053; 80202; 82607; 82728; 82746; 83540; 83550; 83735; 84145; 84443; 84484; 85025; 85651; 86140; 87641; 92610; 93005; 93306; 96365; 96375; 97110; 97116; 97161; 97530; 99285; J2405; J2543; J3370; J3475; J7050; Q9967

== ENCOUNTER → 2020-10-02 11:45 | Outpatient (BNVA) | payer OTHER, SELFPAY | PROVIDERS: PCP Nurse Practitioner; Visit Provider Orthopaedic Surgery | DX: Z48.89 Encounter for other specified surgical aftercare (principal) | CPT/HCPCS: 73502 ==

== ENCOUNTER → 2020-10-22 13:37 | Outpatient (BNVA) | payer MEDICARE, OTHER, SELFPAY | PROVIDERS: PCP Nurse Practitioner; Visit Provider Internal Medicine Pulmonary Disease | DX: R91.8 Other nonspecific abnormal finding of lung field (principal); Z20.822 Contact with and (suspected) exposure to COVID-19 | CPT/HCPCS: 87635 ==

== ENCOUNTER 2020-10-26 06:16 | Day surgery (SDC) | payer MEDICARE, OTHER, SELFPAY ==
[2020-10-25 17:37] VITALS: BMI 17.6
[2020-10-26] VITALS (10 sets, daily range): BP systolic 116–197; BP diastolic 54–100; PULSE 70–92; RESP 12–18; TEMP 36.5–36.9; O2SAT 95–100
--- NOTE | 2020-10-26 | CT_ITS ---
Guided Bronchoscopy Planning CT images; total exam DLP: 501.78 mGy-cm MTDD
--- NOTE | 2020-10-26 07:02 | ANES.PREANE2 ---
Pre-Anesthetic Assessment Pre-Anesthetic Assessment: Height/Weight: Height 1.52 m Weight 40.823 kg Temp Pulse Resp BP Pulse Ox 98.5 F 74 18 181/68 99 10/26/20 06:46 10/26/20 06:46 10/26/20 06:46 10/26/20 06:46 10/26/20 06:46 Preop Diagnosis: Right femoral neck fracture, nondisplaced Proposed Procedure: Operation Date: 10/26/20 07:00 Proposed Procedures p Poly(Not Applicable) Subha Rodriguez MD s Mary(Not Applicable) Subha Rodriguez MD Was Beta Amy taken within 24 hours: N/A Was Clonidine taken within 24 hours: N/A Last intake: Intake Last Liquid Date 10/25/20 Last Solid Date 10/25/20 Social: Social History: No alcohol and No tobacco Exam: Pre-Anes Outpt Exam: alert, oriented x 3, clear to auscultation bilaterally and regular rate & rhythm (occasional irregular beat noted ) Airway: Submandibular: WNL Cervical ROM: WNL MP: 1 History/ROS: No significant history except as noted Pulmonary: Pulmonary: None reported CV/HEM: CV/HEM: HTN : : None reported Hepatic: Hepatic: None reported GI: GI: GERD Metabolic: Metabolic: None reported Musc/skel: Musc/skel: None reported Neuropsych: Neuropsych: None reported Anesthetic Plan: ASA status: 3 Anesthesia: General [facility] Anesthesia PFSH: Medical History (Updated 10/09/20 @ 16:14 by Betsy Davison MD) COVID-19 Emphysema lung Hypertension Nondisplaced fracture of neck of left femur Pneumonia due to COVID-19 virus Pulmonary embolism Surgical History History of repair of hip fracture Postoperative state Social History Smoking and tobacco status: never smoked Second hand smoke exposure: No Smoking risk assessment/counseling performed?: Yes Alcohol intake: never Caregiver/support person: Yes Lives independently: No Housing: [facility] Marital status: service: No Current occupational status: retired Pets and animals: No History of recent travel: No Current gender identity: Female Data Anesthesia Cardiac Studies: No Data to Display
--- NOTE | 2020-10-26 07:11 | W.PM.OPSFHP ---
Same Day Surgery H&P Indication for Procedure/HPI DATE OF PROCEDURE: October 26, 2020 CHIEF COMPLAINT/INDICATIONFOR SURGICAL PROCEDURE: Suspected lung cancer PREOP DIAGNOSIS: Right femoral neck fracture, nondisplaced PLANNED PROCEDRUE: Bronchoscopy with inspection of the airway, possible endobronchial biopsy, bronchoalveolar lavage, navigational bronchoscopy guided transbronchial biopsy of the left lower lobe lung mass, fine-needle aspiration and Cytobrush, endobronchial survey transbronchial aspiration of lymph nodes and control of bleeding. Operation Date: 10/26/20 07:00 Proposed Procedures p Veran(Not Applicable) - Anselmo Rodriguez MD s Ebus(Not Applicable) - Anselmo Rodriguez MD This is an 85-year-old lady coming in for bronchoscopic evaluation for left lower lobe lung mass. The patient has a past medical history of hypertension, pulmonary embolism on Eliquis. She was admitted to the hospital in July 2020 for acute hypoxic respiratory failure secondary to COVID-[address] angiogram at that time revealed pulmonary embolism as well as left lower lobe lung mass. Follow-up CT scan on September 17 revealed persistent masslike consolidation. Medications/Allergies* Home Medications Medication Instructions Recorded Confirmed Type latanoprost 1 drp OPHTHALMIC (EYE) QPM 08/04/20 10/26/20 History magnesium 1 tab PO DAILY 08/04/20 10/26/20 History timolol maleate 1 drp OPHTHALMIC (EYE) BID 08/04/20 10/26/20 History amlodipine 10 mg PO DAILY 10/26/20 10/26/20 History coenzyme Q10 [CoQ-10] 100 mg PO DAILY 10/26/20 10/26/20 History cyanocobalamin (vitamin B-12) 500 mcg PO DAILY 10/26/20 10/26/20 History [Vitamin B-12] pantoprazole 40 mg PO DAILY 10/26/20 10/26/20 History Allergies/Adverse Reactions Allergy/AdvReac Type Severity Reaction Status Date / Time No Known Allergies Allergy Verified 10/26/20 06:29 Pertinent History/Comorbid Conditions* Medical History (Updated 10/09/20 @ 16:14 by Betsy Davison MD) COVID-19 Emphysema lung Hypertension Nondisplaced fracture of neck of left femur Pneumonia due to COVID-19 virus Pulmonary embolism Surgical History (Updated 09/13/20 @ 13:39 by Jasmeet Buchanan MD) History of repair of hip fracture Postoperative state Social History Smoking and tobacco status: never smoked Second hand smoke exposure: No Smoking risk assessment/counseling performed?: Yes Alcohol intake: never Caregiver/support person: Yes Lives independently: No Housing: Senior Living Marital status: service: No Current occupational status: retired Pets and animals: No History of recent travel: No Current gender identity: Female Pertinent Exam Findings alert, oriented x 3, clear to auscultation bilaterally and regular rate & rhythm Recommendations Surgery/Procedure today Coding Level of Care Code Acute Auto Service Dispatcher for Michel Hernandez
--- NOTE | 2020-10-26 09:04 | P.OP_ITS ---
Operative Report Date of procedure: October 26, 2020 Pre-op Diagnosis: Suspected lung cancer Post-op diagnosis: same Brief History: This is an 85-year-old lady with left lower lobe lung mass coming in for bronchoscopic evaluation. Procedure: Name of the procedure: Bronchoscopy with inspection of the airway, bronchoalveolar lavage, navigational bronchoscopy guided transbronchial biopsies of left lower lobe lung mass, fine-needle aspiration, endobronchial ultrasound- guided transbronchial needle aspiration of lymph nodes and control of bleeding. Indication: Left lower lobe lung mass Anesthesia: General anesthesia. Local anesthesia: The dustin in the right and left mainstem bronchi were anesthetized with 1% lidocaine, 3 mL. Description of the procedure: The procedure was explained to the patient and the consent was obtained. The patient was brought to the OR. The patient underwent endotracheal intubation for general anesthesia. Following induction of general anesthesia, the bronchoscope was advanced through the ET tube. The lower trachea appeared to be normal. The dustin was sharp. The dustin, the right and left mainstem bronchi are anesthetized with 1% lidocaine. In a systematic manner bilateral bronchial tree was then examined. The bronchoscope was advanced into the left mainstem bronchus. The left upper lobe, lingula and left lower lobe bronchi were examined up to the third subsegmental level and no abnormalities were identified. There is no endobronchial lesion, active bleeding or mucous plug. The bronchoscope was then introduced into the right mainstem bronchus. The right upper lobe, right middle lobe and right lower lobe bronchi were examined up to the third subsegmental level and no abnormalities were identified. She is a navigational bronchoscopy, transbronchial biopsies were obtained from the left lower lobe lung mass. Multiple samples were obtained Fine-needle aspiration was performed from the lesion. Multiple samples were obtained. Bronchoalveolar lavage was performed from the posterior segment of the left lower lobe. 90 cc of fluid was administered, fluid return was 25 mL. The endobronchial ultrasound was introduced through the ET tube. Fine-needle aspiration was obtained from station 7 and 11 L. Samples: 1. Bronchoalveolar lavage specimen was sent for Gram stain and culture, fungal stain and culture, AFB stain and culture, Aspergillus galactomannan and Fungitell assays. 2. Navigational bronchoscopy guided transbronchial biopsies are sent for histopathology. 3. Navigational bronchoscopy guided fine-needle aspirations were sent for histopathology. 4. The transbronchial needle aspiration of the aforementioned lymph node groups were sent for histopathology. Complications: There was no immediate complications. Chest x-ray: Pending
--- NOTE | 2020-10-26 09:14 | XR_ITS ---
WS: [id number] PORTABLE CHEST HISTORY: post transbronchial biopsy to rule out pneumothorax COMPARISON: 08/07/2020 Lung volumes are slightly decreased. Mild increased opacification in the lingula. Very minimal blunti ng of the LEFT costophrenic angle. No pleural effusion or pneumothorax. Cardiac size: Normal. Mediastinum/Aorta: Mild atherosclerosis aorta. No osseous abnormality seen. XR/XR chest 1V portable [id number] IMPRESSION: 1. No pneumothorax status post bronchoscopy. 2. New subsegmental opacification at the lingula may be an area of atelectasis . 3. Mild atherosclerosis aorta.
--- NOTE | 2020-10-26 09:19 | P.PCN_ITS ---
PACU note PACU note: VSS, Good respiratory effort, report to REALTIME COURT REPORTER Post-Anesthesia Exam: awake
--- NOTE | 2020-10-26 09:19 | PM.PACU ---
PACU note PACU note: VSS, Good respiratory effort, report to OUTREACH CLINICIAN Post-Anesthesia Exam: awake
[2020-10-26] MEDS: hyDRALAzine 20 mg/mL INJ 1 mL 10 MG IVP (09:27)
--- NOTE | 2020-10-26 10:40 | ANE.PACU2 ---
Inpatient post-anesthesia follow up: Airway intact: Yes Vital signs: Temperature 97.8 F Pulse Rate 70 Respiratory Rate 17 Blood Pressure 126/79 Pulse Oximetry 97 Oxygen Delivery Me thod Room Air Oxygen Flow Rate 8 Fraction of Inspir ed Oxygen Hydration adequate: Yes Nausea and vomiting: No Pain level: 1 Mental status: Baseline
[2020-11-02 19:53] LABS: Aspergillus AG,EIA NOT DETECTED; Aspergillus AG,EIA, Index <0.50
== END 2020-10-26 11:01 | disposition home or self-care (01) ==
PROVIDERS: PCP Nurse Practitioner; Visit Provider Internal Medicine Pulmonary Disease
PROC: 0BJ08ZZ Inspection of Tracheobronchial Tree, Via Natural or Artificial Opening Endoscopic (ICD-10-PCS; CPT 31622; principal; 2020-10-26 07:00)
PROC: BB4BZZZ Ultrasonography of Pleura (ICD-10-PCS; 2020-10-26 07:00)
DX: C34.90 Malignant neoplasm of unspecified part of unspecified bronchus or lung (principal); I10 Essential (primary) hypertension; K21.9 Gastro-esophageal reflux disease without esophagitis; J43.9 Emphysema, unspecified; Z86.16 Personal history of COVID-19; Z86.711 Personal history of pulmonary embolism; Z79.01 Long term (current) use of anticoagulants
CPT/HCPCS: 31625; 31627; 31652; 71045; 77011; 80500; 87015; 87070; 87102; 87116; 87176; 87205; 87206; 87305; 87801; 88305; J0360; J1100; J2405; J2704; J2710; J3010; J3490

== ENCOUNTER 2020-11-08 09:57 | Outpatient (CLI) | payer MEDICARE, OTHER, SELFPAY ==
--- NOTE | 2020-11-08 10:08 | XR_ITS ---
WS: [id number] Exam: XR chest 2V* [id number] Date/Time of Exam: 11/08/2020 10:09 AM Reason For Exam: resolution of left lower lobe opacity Comparison 10/26/2020. 3 subcentimeter masslike density seen in the left lower lobe. The lungs are fully inflated. No infilt rates. No pleural effusions. Cardiomediastinal structures are unremarkable. Calcification of the mitr al valve annulus. Regional bony elements are intact. XR/XR chest 2V* [id number] IMPRESSION: 1. 3 cm masslike density in the left lower lobe. This abnormality has been desc ribed on the multiple prior exams including CT scan of the chest performed 2020. This could represent pneumonia, abscess or neoplasm.
== END 2020-11-08 09:58 | disposition home or self-care (01) ==
LOC: RAD 10:06
PROVIDERS: PCP Nurse Practitioner; Visit Provider Internal Medicine Pulmonary Disease
DX: J18.9 Pneumonia, unspecified organism (principal); R91.8 Other nonspecific abnormal finding of lung field
CPT/HCPCS: 71046

== ENCOUNTER 2020-12-07 09:57 | Outpatient (CLI) | payer MEDICARE, OTHER, SELFPAY ==
--- NOTE | 2020-12-07 10:06 | XR_ITS ---
WS: [id number] Exam: XR chest 2V* [id number] Date/Time of Exam: 12/07/2020 10:15 AM Reason For Exam: lung mass Comparison 11/08/2020. A 3 cm pulmonary density is again noted along the left heart border and shows n o change. The lungs are otherwise clear and hyperinflated. Normal cardiomediastinal structures and alejandra ny elements. Chronic interstitial changes in the right upper lobe. No pleural effusion. XR/XR chest 2V* [id number] IMPRESSION: 1. 3 cm of pulmonary density seen along the left heart border unchanged since . Neoplasm not excluded but this may represent residual scarring from l alex abscess or pneumonia.
== END 2020-12-07 09:58 | disposition home or self-care (01) ==
PROVIDERS: PCP Nurse Practitioner; Visit Provider Internal Medicine Pulmonary Disease
DX: R19.8 Other specified symptoms and signs involving the digestive system and abdomen (principal)
CPT/HCPCS: 71046

== ENCOUNTER 2021-03-04 12:39 | Outpatient (CLI) | payer MEDICARE, OTHER, SELFPAY ==
--- NOTE | 2021-03-04 13:00 | CT_ITS ---
WS: [id number] CT CHEST WITHOUT INTRAVENOUS CONTRAST HISTORY: lung mass TECHNIQUE: Contiguous 5 mm axial imaging performed on the thorax. Coronal and sagittal reformats are submitted. All CT scans at [facility] use at least one of these dose optimization techniq ues: automated exposure control; mA and/or kV adjustment per patient size (includes targeted exams wh ere dose is matched to clinical indication); or iterative reconstruction. CONTRAST: None DLP: 378.29 mGycm COMPARISON: 09/17/2020 and 09/13/2020 and 08/09/2020 Lungs and central airway: Lungs are hyperinflated. Chronic moderate emphysematous changes. Reticulati ons the periphery of both lungs. Dense consolidation at the LEFT lung base is significantly decreased in size since 09/17/2020. Residual consolidation measures 1.7 x 1.7 cm. Mild adjacent stranding. Overa ll the a long aeration has improved since the prior study. Less areas of pneumonitis. Pleura: Normal. No pleural effusion. Heart and pericardium: Mild enlargement of the heart. Moderate coronary artery calcifications. Mediastinum and jackie: No mediastinum or hilar adenopathy. Vessels: Moderate atherosclerotic changes within the aorta. No aneurysm. Dilated pulmonary artery. Chest wall and lower neck: No soft tissue masses. Upper abdomen: Suprarenal atherosclerotic calcifications within the aorta. Visualized colon demonstra mary marked constipation and inspissated fecal material. There is increased food products within the s tomach. Dilatation of the pancreatic duct and the common bile duct. Unchanged since 09/13/2020 and thou ght to be related to cholecystectomy. Please see report of CT abdomen and pelvis on 09/13/2020. Osseous structures: Continued progression of the L1 compression fracture. Loss of height by 30%. No r etropulsion. CT/CT chest wo con [id number] IMPRESSION: 1. Significant decrease in size of the LEFT lower lobe consolidation since 09/17. Consolidation now measures 1.7 x 1.7 cm compares to 3.6 x 2.5 cm on the prior study. As this has not completely resolved continue follow-up is recommen ded to ensure complete resolution. 2. No adenopathy. 3. Overall improved aeration throughout both lungs with less pneumonitis. 4. Atherosclerosis aorta.
== END 2021-03-04 12:40 | disposition home or self-care (01) ==
PROVIDERS: PCP Nurse Practitioner; Visit Provider Internal Medicine Pulmonary Disease
DX: R91.8 Other nonspecific abnormal finding of lung field (principal); I70.0 Atherosclerosis of aorta
CPT/HCPCS: 71250

== ENCOUNTER 2021-08-27 11:42 | Outpatient (CLI) | payer MEDICARE, OTHER, SELFPAY ==
--- NOTE | 2021-08-27 11:45 | CT_ITS ---
WS: [id number] CT CHEST WITHOUT INTRAVENOUS CONTRAST HISTORY: Follow-up mass. TECHNIQUE: Contiguous 5 mm axial imaging performed on the thorax. Coronal and sagittal reformats are submitted. All CT scans at [facility] use at least one of these dose optimization techniques: automated exposure control; mA and/or kV adjustment per patient size (includes targeted exams where dose is matched to clinical indication); or iterative reconstruction. CONTRAST: None DLP: 517.96 mGy.cm COMPARISON: 03/04/2021 Lungs and central airway: Round, partially solid nodule in the LEFT lower lobe measures 19 x 16 mm. T here are a few cystic areas centrally or areas of cavitation. No enlargement since the prior exam. Th ere is continued mild adjacent inflammatory changes but also improved. Otherwise lungs are hyperinfla danielle. Mild interstitial thickening in the periphery of the upper and lower lung medrano similar to the prior examination. Pleura: Normal. No pleural effusion. Heart and pericardium: Heart is normal size. Moderate coronary artery calcifications. No effusion. Mediastinum and jackie: No lymph nodes identified on this unenhanced exam. Vessels: Mild ectasia thoracic aorta with scattered calcifications. Pulmonary artery size is mildly e nlarged at 2.9 cm. Chest wall and lower neck: No soft tissue masses. Upper abdomen: Again noted are mildly prominent common bile duct and the pancreatic duct at the pancr eatic head. Pancreatic duct is slightly dilated up to 7 mm. Common bile duct also measures up proxima lly 8 mm at the pancreatic head. Gallbladder has been removed. Osseous structures: Patient has a known compression fracture involving L1 by approximately 50% with [address]/CT chest wo con [id number] IMPRESSION: 1. No significant interval change LEFT lower lobe partially solid mass measuri ng 19 x 16 mm. Prior measurement 17 x 17 mm. There are a few more cystic areas present within the mass. Small amount of adjacent pulmonary stranding is simila r to prior studies. This could represent a low-grade malignancy. Recommend cont inued 6 month follow-up. 2. No adenopathy. 3. No new mass or nodule.
== END 2021-08-27 11:43 | disposition home or self-care (01) ==
LOC: RAD 11:49
PROVIDERS: PCP Internal Medicine Pulmonary Disease; Visit Provider Internal Medicine Pulmonary Disease
DX: R91.8 Other nonspecific abnormal finding of lung field (principal)
CPT/HCPCS: 71250

== ENCOUNTER → 2021-10-01 13:02 | Outpatient (BNVA) | payer MEDICARE, OTHER, SELFPAY | PROVIDERS: PCP Internal Medicine Pulmonary Disease; Visit Provider Internal Medicine Pulmonary Disease | DX: R91.8 Other nonspecific abnormal finding of lung field (principal); I26.93 Single subsegmental thrombotic pulmonary embolism without acute cor pulmonale; Z86.16 Personal history of COVID-19; I10 Essential (primary) hypertension; I26.09 Other pulmonary embolism with acute cor pulmonale | CPT/HCPCS: 99214 ==

== ENCOUNTER → 2022-01-16 11:23 | Outpatient (BNVA) | payer MEDICARE, OTHER, SELFPAY | PROVIDERS: PCP Internal Medicine Pulmonary Disease; Visit Provider Family Medicine | DX: I10 Essential (primary) hypertension (principal); I26.93 Single subsegmental thrombotic pulmonary embolism without acute cor pulmonale; L03.031 Cellulitis of right toe; Z76.89 Persons encountering health services in other specified circumstances; R91.8 Other nonspecific abnormal finding of lung field | CPT/HCPCS: 80053; 83735; 85025 ==

== ENCOUNTER → 2022-02-06 07:58 | Outpatient (BNVA) | payer MEDICARE, OTHER, SELFPAY | PROVIDERS: PCP Internal Medicine Pulmonary Disease; Visit Provider Podiatrist Foot & Ankle Surgery | DX: L60.3 Nail dystrophy (principal); L60.8 Other nail disorders; M20.41 Other hammer toe(s) (acquired), right foot; M20.42 Other hammer toe(s) (acquired), left foot; I73.9 Peripheral vascular disease, unspecified | CPT/HCPCS: 11721; 99203 ==

== ENCOUNTER 2022-02-24 09:31 | Outpatient (CLI) | payer MEDICARE, OTHER, SELFPAY ==
--- NOTE | 2022-02-24 10:00 | CT_ITS ---
WS: [id number] CT CHEST TECHNIQUE: Noncontrast CT of the chest with coronal and sagittal reformatted images. CLINICAL INFORMATION: Follow up on left lower lobe lesion COMPARISON: CT August 27, 2021 DLP: 573.[address] scans at [facility] use at least one of these dose optimization techniques: automated e xposure control; mA and/or kV adjustment per patient size (includes targeted exams where dose is matc hed to clinical indication); or iterative reconstruction. FINDINGS: Previously described LEFT lower lobe lesion measuring 1.9 x 1.6 cm is unchanged compared to previous. A few tiny locules of central cavitation unchanged compared to previous. Moderate chronic emphysematous changes. No acute pulmonary infiltrates. Mild aortic calcification. No rmal caliber thoracic aorta. Coronary calcification. No mediastinal or hilar lymphadenopathy. No axil deni lymphadenopathy. Adrenal glands are normal. Prior cholecystectomy. Physiologic dilatation common bile duct appears unchanged. Small esophageal hiatal hernia. Chronic compression L1 is unchanged. CT/CT chest [facility] [id number] IMPRESSION: 1. Previously described LEFT lower lobe lesion measuring 1.9 x 1.6 cm is uncha nged compared to previous. Recommend continued surveillance with six-month ches t CT follow-up. Findings remain suspicious for low-grade neoplasm. PET CT could be used in further evaluation if not performed previously. 2. No mediastinal or hilar lymphadenopathy. 3. No other significant changes compared to previous.
== END 2022-02-24 09:32 | disposition home or self-care (01) ==
PROVIDERS: Visit Provider Internal Medicine Pulmonary Disease
DX: J98.4 Other disorders of lung (principal)
CPT/HCPCS: 71250

== ENCOUNTER → 2022-07-17 12:17 | Outpatient (BNVA) | payer MEDICARE, OTHER, SELFPAY | PROVIDERS: Visit Provider Podiatrist Foot & Ankle Surgery | DX: I73.9 Peripheral vascular disease, unspecified (principal); L60.8 Other nail disorders; L60.3 Nail dystrophy; M20.41 Other hammer toe(s) (acquired), right foot; M20.42 Other hammer toe(s) (acquired), left foot | CPT/HCPCS: 11721 ==

== ENCOUNTER → 2022-10-16 12:56 | Outpatient (BNVA) | payer MEDICARE, OTHER, SELFPAY | PROVIDERS: Visit Provider Podiatrist Foot & Ankle Surgery | DX: I73.9 Peripheral vascular disease, unspecified (principal); L60.8 Other nail disorders; L60.3 Nail dystrophy; M20.41 Other hammer toe(s) (acquired), right foot; M20.42 Other hammer toe(s) (acquired), left foot | CPT/HCPCS: 11721 ==

== ENCOUNTER 2022-11-01 11:40 | Emergency (ER) | payer MEDICARE, OTHER, SELFPAY ==
[2022-11-01 11:49] VITALS: BP 192/76; PULSE 57; RESP 16; TEMP 36.4; O2SAT 100
--- NOTE | 2022-11-01 12:04 | CTR_ITS ---
PROCEDURE INFORMATION: Exam: CTA Head With Contrast, Arteriography Exam date and time: 11/01/2022 12:16 PM Age: 87 years old Clinical indication: Stroke-like symptoms; Headache; Additional info: Headache, high blood pressure TECHNIQUE: Imaging protocol: Computed tomographic angiography of the head with contrast. Exam focused on the arteries. 3D rendering (Not supervised by radiologist): MIP and/or 3D reconstructed images were created by the technologist. Total images: 26 Radiation optimization: All CT scans at this facility use at least one of these dose optimization techniques: automated exposure control; mA and/or kV adjustment per patient size (includes targeted exams where dose is matched to clinical indication); or iterative reconstruction. Contrast material: OMNI 350; Contrast volume: 80 ml; Contrast route: INTRAVENOUS (IV); REPORTING DATA: Count of CT and Cardiac NM exams in prior 12 months: This patient has received [address] and 0 known cardiac nuclear medicine studies in the 12 months prior to the current study. COMPARISON: CT head wo con* [id number] 09/13/2020 7:07 AM RADIATION DOSE METRICS: Total DLP (mGy-cm): 882.25 FINDINGS: ANTERIOR CIRCULATION: Right internal carotid artery: Intracranial segment is patent with no significant stenosis. No aneurysm. Right middle cerebral artery: No occlusion or significant stenosis. No aneurysm. Right anterior cerebral artery: Hypoplastic A1 segment of the right SHEY with A2 segment supplied through patent anterior communicating artery. Left internal carotid artery: Intracranial segment is patent with no significant stenosis. No aneurysm. Left middle cerebral artery: No occlusion or significant stenosis. No aneurysm. Left anterior cerebral artery: No occlusion or significant stenosis. No aneurysm. POSTERIOR CIRCULATION: Right vertebral artery: No occlusion or significant stenosis. No aneurysm. Left vertebral artery: No occlusion or significant stenosis. No aneurysm. Basilar artery: No occlusion or significant stenosis. No aneurysm. Right posterior cerebral artery: No occlusion or significant stenosis. No aneurysm. Left posterior cerebral artery: No occlusion or significant stenosis. No aneurysm. Other arteries: Moderate atherosclerotic disease is evident. Brain: Global brain atrophy and chronic white matter ischemic changes are present. Senescent calcifications in the basal ganglia. Cerebral ventricles: Ventricles are appropriate in size for degree of atrophy. Orbital cavities: Prior bilateral lens replacements noted. Bones/joints: Nasal bone deformity is not acute. Soft tissues: Unremarkable. PROCEDURE INFORMATION: Exam: CTA Neck With Contrast Exam date and time: 11/01/2022 12:16 PM Age: 87 years old Clinical indication: Stroke-like symptoms; Headache; Additional info: Headache, high blood pressure TECHNIQUE: Imaging protocol: Computed tomographic angiography of the neck with contrast. 3D rendering (Not supervised by radiologist): MIP and/or 3D reconstructed images were created by the technologist. Radiation optimization: All CT scans at this facility use at least one of these dose optimization techniques: automated exposure control; mA and/or kV adjustment per patient size (includes targeted exams where dose is matched to clinical indication); or iterative reconstruction. Contrast material: OMNI 350; Contrast volume: 80 ml; Contrast route: INTRAVENOUS (IV); REPORTING DATA: Count of CT and Cardiac NM exams in prior 12 months: This patient has received [address] and 0 known cardiac nuclear medicine studies in the 12 months prior to the current study. COMPARISON: CT cervical spin wo con* [id number] 09/13/2020 7:09 AM RADIATION DOSE METRICS: Total DLP (mGy-cm): 882.25 FINDINGS: Right common carotid artery: No stenosis. No dissection or occlusion. Right internal carotid artery: No stenosis of the extracranial segment. No dissection or occlusion. Right external carotid artery: No occlusion or stenosis of the origin. Left common carotid artery: No stenosis. No dissection or occlusion. Left internal carotid artery: Mild stenosis at the origin of the left ICA secondary to calcified atherosclerotic plaque. Mild stenosis at origin of left ICA secondary to calcified atherosclerotic plaque. Left external carotid artery: Moderate stenosis at the origin of the left ECA secondary to calcified atherosclerotic plaque. Right vertebral artery: No stenosis. No dissection or occlusion. Left vertebral artery: No stenosis. No dissection or occlusion. Soft tissues: Normal. No significant soft tissue swelling. Bones/joints: C5-C6 degenerative disc disease with disc space narrowing and osteophyte formation. CT/CT angio headneck* [id number] IMPRESSION: 1. Global brain atrophy and chronic white matter ischemic changes are present. 2. No hemodynamically significant stenosis, vascular occlusions, aneurysm, dissection, nor AV malformation. IMPRESSION: 1. Moderate stenosis at the origin of the left ECA secondary to calcified atherosclerotic plaque. 2. Mild stenosis at the origin of the left ICA secondary to calcified atherosclerotic plaque. 3. Mild stenosis at origin of left ICA secondary to calcified atherosclerotic plaque. REFERENCES: NASCET CRITERIA. The degree of stenosis in the cervical segment of the internal carotid artery is based on NASCET criteria. Normal is no stenosis. Mild is less than 50% stenosis. Moderate is 50-69% stenosis. Severe is 70% to 99% stenosis. Total occlusion is no detectable patent lumen.
--- NOTE | 2022-11-01 12:05 | W.ED.HA ---
HPI - Headache General: Chief Complaint: Headache Stated Complaint: headache dizzy Time Seen by Provider: 11/01/22 12:01 History of Present Illness: Patient presents to the ER with complaints of headache dizziness and high blood pressure. These all started yesterday but got worse today. Patient has had these before. MD elicited complaint: headache Pertinent past history: hypertension Onset (ago): day(s) (Yesterday) Onset description: gradually Location: diffuse Exacerbating factors: none Relieving factors: nothing Context: occurred at rest Associated symptoms: Deny chest pain, fever(s), nausea, rash or vomiting Treatments prior to arrival: none Review of Systems General: Reports: 10 or more systems reviewed and unremarkable except in HPI and below Const: Denies: fever(s) or chills Eyes: Denies: change in vision or photophobia ENMT: Denies: throat pain or odynophagia Card: Denies: chest pain, palpitations or irregular heart rhythm Resp: Denies: dyspnea, productive cough or non-productive cough GI: Denies: abdominal pain, nausea, vomiting or diarrhea : Denies: flank pain Musc: Denies: neck pain or back pain Skin/Breast: Denies: rash Neuro: Reports: headache(s) and dizziness PFSH ED PFSH: Medical History COVID-19 Emphysema lung Hypertension Nondisplaced fracture of neck of left femur Pneumonia due to COVID-19 virus Pulmonary embolism Surgical History History of repair of hip fracture Postoperative state Social History Smoking and tobacco status: never smoked Second hand smoke exposure: No Smoking risk assessment/counseling performed?: No Alcohol intake: never Desire information about alcohol rehabilitation?: No Counseling given: No Substance/Drug Use: never Desire information about substance/drug rehabilitation?: No Counseling given: No Adopted: No Caregiver/support person: No Lives independently: No Household members: spouse Housing: House Marital status: Number of children: 0 service: No Current occupational status: retired Pets and animals: No Do you think of yourself as: Straight/Heterosexual Current gender identity: Female Physical Exam Const: COMMON NORMALS: no acute distress, average body habitus, patient oriented x3, no limitations, healthy appearing, alert and well nourished HENMT: COMMON NORMALS: normocephalic, atraumatic, hearing grossly normal bilaterally, external ears normal, Normal external nose present and moist oral mucous membranes HEAD & SCALP: normocephalic and atraumatic NOSE: Normal external nose present EXTERNAL EAR: Yes external ears normal Eye: COMMON NORMALS: Equal, round and reactive pupils present, EOMs intact bilaterally, conjunctivae normal and no scleral icterus CONJUNCTIVA: Yes conjunctivae normal PUPIL: Yes Equal, round and reactive pupils present Neck/C-Spine: COMMON NORMALS: full ROM, no lymphadenopathy, supple, no meningeal signs, no JVD and Thyroid normal THYROID: Thyroid normal Chest: COMMONS NORMALS: normal inspection of the chest and normal palpation of entire chest wall Resp: COMMON NORMALS: normal respiratory effort, No retractions, No use of accessory muscles and clear to auscultation bilaterally AUSCULTATION: clear to auscultation bilaterally Cardio: COMMON NORMALS: no JVD, regular rate, regular rhythm, S1 normal heart sound present and S2 normal heart sound present RATE: regular rate RHYTHM: regular rhythm HEART SOUNDS: S1 normal heart sound present and S2 normal heart sound present GI: COMMON NORMALS: Normal to inspection, nondistended, normoactive bowel sounds present, Soft to palpation, non-tender, No hepatosplenomegaly present and no masses PALPATION: Yes Soft to palpation and Yes No hepatosplenomegaly present : COMMON NORMALS: Yes no CVA tenderness BLADDER/KIDNEY EXAM: Yes no CVA tenderness Back/Pelvis: COMMON NORMALS: no CVA tenderness Neuro: COMMON NORMALS: patient oriented x3, CN's II-XII intact bilaterally, moves all extremities, no focal motor deficits and no sensory deficits noted SENSORIUM/ORIENTATION: Yes alert MENINGEAL SIGNS: Yes no meningeal signs Course Vital Signs: Vital signs: Vital Signs Temperature 97.6 F 11/01/22 11:49 Pulse Rate 71 11/01/22 14:14 Respiratory Rate 16 11/01/22 14:14 Blood Pressure 123/72 11/01/22 14:14 Pulse Oximetry 98 11/01/22 14:14 Oxygen Delivery Me thod Room Air 11/01/22 11:49 MDM - Headache Medical Decision Making Patient presents to the ER with complaints of headache dizziness and hypertension. Patient states this been going on for over 24 hours. And she has had this happen to her in the past. Lab work was obtained as well as imaging. Lab work showed patient is has a urinary tract infection. Imaging showed age-related changes, with mild to moderate stenosis of the arteries. Differential Diagnosis Likely migraine, tension headache and headache Medical Records I reviewed the patient's medical records. Lab Data I reviewed the patient's lab results. 11/01/22 12:13 11/01/22 12:13 Radiology Impressions Head/Neck CTA 11/01/22 12:04 IMPRESSION: 1. Global brain atrophy and chronic white matter ischemic changes are present. 2. No hemodynamically significant stenosis, vascular occlusions, aneurysm, dissection, nor AV malformation. IMPRESSION: 1. Moderate stenosis at the origin of the left ECA secondary to calcified atherosclerotic plaque. 2. Mild stenosis at the origin of the left ICA secondary to calcified atherosclerotic plaque. 3. Mild stenosis at origin of left ICA secondary to calcified atherosclerotic plaque. REFERENCES: NASCET CRITERIA. The degree of stenosis in the cervical segment of the internal carotid artery is based on NASCET criteria. Normal is no stenosis. Mild is less than 50% stenosis. Moderate is 50-69% stenosis. Severe is 70% to 99% stenosis. Total occlusion is no detectable patent lumen. Laboratory Results WBC 7.4 10^3/uL (4.0-10.0) 11/01/22 12:13 RBC 3.12 10^6/uL (4.1-5.3) L 11/01/22 12:13 Hgb 10.3 g/dL (11.5-15.3) L 11/01/22 12:13 Hct 30.7 % (37.0-47.0) L 11/01/22 12:13 MCV 98.4 fl (81-99) 11/01/22 12:13 MCH 33.0 pg (28.0-34.0) 11/01/22 12:13 MCHC 33.6 g/dL (30.0-36.0) 11/01/22 12:13 RDW 12.2 % (12.1-15.1) 11/01/22 12:13 Plt Count 167 10^3/cmm (130-400) 11/01/22 12:13 MPV 10.7 fL (7.4-10.4) H 11/01/22 12:13 Neut % (Auto) 77.9 % 11/01/22 12:13 Lymph % (Auto) 8.5 % 11/01/22 12:13 [place] % (Auto) 12.4 % 11/01/22 12:13 Eos % (Auto) 0.4 % 11/01/22 12:13 Baso % (Auto) 0.3 % 11/01/22 12:13 Neut # (Auto) 5.79 10^3/uL (1.8-7.7) 11/01/22 12:13 Lymph # (Auto) 0.6 10^3/uL (0.8-4.8) L 11/01/22 12:13 [place] # (Auto) 0.9 10^3/uL (0.2-0.9) 11/01/22 12:13 Eos # (Auto) 0.0 10^3/uL (0.0-0.8) 11/01/22 12:13 Baso # (Auto) 0.0 10^3/uL (0.0-0.1) 11/01/22 12:13 Nucleated RBC % (auto) 0 % 11/01/22 12:13 Nucleated RBCs # 0.0 /100WBC 11/01/22 12:13 ESR 22 mm/hr (0-15) H 11/01/22 12:13 PT 12.90 SECONDS (12.1-14.9) 11/01/22 12:13 INR 0.95 (0.8-1.2) 11/01/22 12:13 Sodium 133 mmol/L (136-145) L 11/01/22 12:13 Potassium 4.6 mmol/L (3.5-5.1) 11/01/22 12:13 Chloride 100 mmol/L (98-107) 11/01/22 12:13 Carbon Dioxide 21 mmol/L (22-29) L 11/01/22 12:13 Anion Gap 16.6 (5-19) 11/01/22 12:13 BUN 22 mg/dL (8-23) 11/01/22 12:13 Creatinine 1.5 mg/dL (0.5-0.9) H 11/01/22 12:13 GFR Calculation Not Reportable 11/01/22 12:13 Glucose 244 mg/dL (65-115) H 11/01/22 12:13 POC Glucose 252 mg/dL (70-110) H 11/01/22 12:17 Calculated Osmolality 287 mOsm/kg (285-295) 11/01/22 12:13 Calcium 8.6 mg/dL (8.5-10.5) 11/01/22 12:13 Magnesium 2.1 mg/dL (1.7-2.3) 11/01/22 12:13 Total Bilirubin 0.3 mg/dL (0.15-1.2) 11/01/22 12:13 AST 20 U/L (0-32) 11/01/22 12:13 ALT 15 U/L (0-33) 11/01/22 12:13 Alkaline Phosphatase 77 U/L (35-105) 11/01/22 12:13 C-Reactive Protein 7.2 mg/L (0.0-4.9) H 11/01/22 12:13 Total Protein 6.5 g/dL (6.6-8.7) L 11/01/22 12:13 Albumin 3.9 g/dL (3.5-5.2) 11/01/22 12:13 Globulin 2.6 g/dL (1.3-4.6) 11/01/22 12:13 Urine Color Yellow (Yellow) 11/01/22 14:00 Urine Appearance Hazy (CLEAR) A 11/01/22 14:00 Urine pH 5 (5-7) 11/01/22 14:00 Ur Specific [place] 1.005 (1.005-1.030) 11/01/22 14:00 Urine Protein 3+ (Negative) H 11/01/22 14:00 Urine Glucose (UA) 2+ (Normal) H 11/01/22 14:00 Urine Ketones Negative (Negative) 11/01/22 14:00 Urine Blood Trace (Negative) H 11/01/22 14:00 Urine Nitrate Negative (Negative) 11/01/22 14:00 Urine Bilirubin Neg (Negative) 11/01/22 14:00 Urine Urobilinogen Norm mg/dL (Negative) 11/01/22 14:00 Ur Leukocyte Esterase 1+ (Negative) H 11/01/22 14:00 Urine RBC Rare /hpf (0-2) 11/01/22 14:00 Urine WBC 25-40 /hpf (0-5) H 11/01/22 14:00 Ur Squamous Epith Cells 0-4 /hpf (0-5) H 11/01/22 14:00 Amorphous Sediment Not Reportable 11/01/22 14:00 Urine Bacteria 3+ /hpf (NONE) H 11/01/22 14:00 Discharge Plan Discharge Patient Disposition: Home Clinical Impression: Headache, Essential hypertension, Urinary tract infection Condition: Stable Prescriptions: New ciprofloxacin HCl 500 mg tablet 500 mg PO Q12H Qty: 14 0RF No Action latanoprost 0.005 % drops 1 drp ophthalmic (eye) QPM Qty: 7.5 5RF Rx Instructions: BOTH EYES timolol maleate 0.5 % drops 1 drp ophthalmic (eye) BID Qty: 15 5RF Rx Instructions: BOTH EYES amlodipine 10 mg tablet 10 mg PO DAILY Qty: 90 2RF meloxicam 7.5 mg tablet 7.5 mg PO DAILY Qty: 30 0RF tizanidine [Zanaflex] 2 mg capsule 2 mg PO Q8H PRN (Reason: muscle spasticity) Qty: 30 0RF coenzyme Q10 [CoQ-10] 100 mg Capsule 100 mg PO DAILY Discharge Orders: Discharge ED (Routine); Ordered 11/01/22 Ordered By: Sanket Love Patient Instructions: Urinary Tract Infection in Women (ED), Acute Headache (DC), Hypertension (ED) Activity Restrictions/Additional Instructions: Please finish all your antibiotics as directed. Please take your blood pressure medicine and keep a blood pressure log. Follow-up with your primary care physician within 1 week as needed. Coding Level of Care Code ED Diagrammer And Seamer for Michel Hernandez
--- NOTE | 2022-11-01 12:06 | PC.NURSE ---
PT STATES SYMPTOMS STARTED YESTERDAY AFTERNOON. PT PRESENTS WITH HIGH BP/LETHARGY/NAUSEA/DIZZINESS. PT REPORTS SYMPTOMS ARE WORSE TODAY. PT SHOWS NO EFFORT AGAINST GRAVITY FOR RIGHT LEG. PT ABILITY TO FOLLOW DIRECTION IS POOR. DR. DENT NOTIFIED. STROKE ALERT CALLED 1210.
[2022-11-01] MEDS: iohexol 350 mg/mL 500 mL Btl (per mL) IV (12:18)
[2022-11-01 12:19] LABS: Glucose Point of Care 252 mg/dL (70-110)
[2022-11-01 12:34] LABS: Basophils % 0.3 %; Eosinophils % 0.4 %; Hematocrit 30.7 % (37.0-47.0); Hemoglobin 10.3 g/dL (11.5-15.3); Lymphocytes # 0.6 10^3/uL (0.8-4.8); Lymphocytes % 8.5 %; Mean Corpuscular HGB Conc 33.6 g/dL (30.0-36.0); Mean Corpuscular Volume 98.4 fl (81-99); Mean Platelet Volume 10.7 fL (7.4-10.4); Monocytes # 0.9 10^3/uL (0.2-0.9); Monocytes % 12.4 %; Neutrophils # 5.79 10^3/uL (1.8-7.7); Neutrophils % 77.9 %; Nucleated Red Blood Cells % 0 %; Platelet Count 167 10^3/cmm (130-400); Red Blood Count 3.12 10^6/uL (4.1-5.3); Red Cell Distribution Width 12.2 % (12.1-15.1); White Blood Count 7.4 10^3/uL (4.0-10.0)
[2022-11-01 12:42] LABS: Erythrocyte Sedimentation Rate 22 mm/hr (0-15)
[2022-11-01 12:44] LABS: INR 0.95 (0.8-1.2)
[2022-11-01 12:52] LABS: Alanine Aminotransferase 15 U/L (0-33); Albumin Level 3.9 g/dL (3.5-5.2); Alkaline Phosphatase 77 U/L (35-105); Anion Gap 16.6 (5-19); Aspartate Amino Transferase 20 U/L (0-32); Blood Urea Nitrogen 22 mg/dL (8-23); C Reactive Protein 7.2 mg/L (0.0-4.9); Calcium 8.6 mg/dL (8.5-10.5); Carbon Dioxide 21 mmol/L (22-29); Chloride 100 mmol/L (98-107); Globulin 2.6 g/dL (1.3-4.6); Glucose 244 mg/dL (65-115); Magnesium 2.1 mg/dL (1.7-2.3); Osmolality Calculated 287 mOsm/kg (285-295); Potassium 4.6 mmol/L (3.5-5.1); Sodium 133 mmol/L (136-145); Total Bilirubin 0.3 mg/dL (0.15-1.2); Total Protein 6.5 g/dL (6.6-8.7)
[2022-11-01 12:53] VITALS: BP 146/77; PULSE 61; RESP 16; O2SAT 99
[2022-11-01 13:15] VITALS: BP 209/87; PULSE 60; RESP 16; O2SAT 98
[2022-11-01] MEDS: hyDRALAzine 20 mg/mL INJ 1 mL IVP (13:51)
[2022-11-01 14:14] VITALS: BP 123/72; PULSE 71; RESP 16; O2SAT 98
[2022-11-01 14:30] LABS: Glucose Urine UA 2+ (Normal); Protein Urine 3+ (Negative); Specific Gravity, Urine 1.005 (1.005-1.030); Urine Appearance Hazy (CLEAR); Urine Color Yellow (Yellow); pH Urine 5 (5-7)
[2022-11-01 14:31] LABS: Add Urine Culture? Yes; Add Urine Microscopic? YES; Bacteria Urine 3+ /hpf; Bilirubin Urine Neg (Negative); Blood Urine Trace (Negative); Ketones Urine Negative (Negative); Leukocyte Esterase Urine 1+ (Negative); Nitrate Urine Negative (Negative); RBC Urine RARE /hpf (0-2); Squamous Epithelial Cell Urine 0-4 /hpf (0-5); Urobilinogen Urine Norm (Negative); WBC Urine 25-40 /hpf (0-5)
[2022-11-01 14:50] VITALS: BP 131/54; PULSE 71; RESP 16; O2SAT 98
[2022-11-01] MEDS: HYDROcodone-acetaminophen 5-325 mg Tablet 1 TAB PO (15:16)
[2022-11-01 15:21] VITALS: BP 102/75; PULSE 72; RESP 16; O2SAT 99
--- NOTE | 2022-11-06 13:45 | DCPLANNER ---
specialist managers unable to speak with patient at this time, about getting established with a primary care physician.
== END 2022-11-01 15:23 | disposition home or self-care (01) ==
PROVIDERS: Emergency Provider Emergency Medicine
DX: R51.9 Headache, unspecified (principal); I10 Essential (primary) hypertension; N39.0 Urinary tract infection, site not specified; J43.9 Emphysema, unspecified
CPT/HCPCS: 36416; 70496; 70498; 80053; 81001; 82962; 83735; 85025; 85610; 85651; 86140; 87077; 87086; 87186; 96374; 99285; J0360; Q9967

== ENCOUNTER 2022-11-04 11:48 | Inpatient (IN) | payer MEDICARE, OTHER, SELFPAY ==
[2022-11-04] VITALS (10 sets, daily range): BP systolic 151–225; BP diastolic 64–115; PULSE 56–74; RESP 14–21; TEMP 36.7–36.8; O2SAT 94–100
--- NOTE | 2022-11-04 12:03 | W.ED.HA ---
HPI - Headache General: Chief Complaint: Headache Stated Complaint: headache/dizzy Time Seen by Provider: 11/04/22 11:51 History of Present Illness: Ms. Nicholas is an 87-year-old lady with, per chart review, hypertension and emphysema presented to the emergency department for headache and dizziness. She reports onset of symptoms most likely gradually 5 days ago. She describes it intermittently as a spinning sensation and also faint feeling. Since onset symptoms have persisted. She was evaluated in the ER and prescribed meclizine and ciprofloxacin for a UTI though it sounds like she has not been taking these. Symptom intensity is moderate to severe. Generalized headache associated with it. Symptoms are worse with her eyes open. History otherwise limited as the patient often repeats headache and nausea as answers to questions. No other specific changes in health, exacerbating, or alleviating factors identified. Onset (ago): day(s) Onset description: gradually Location: generalized Severity: severe Quality & Timing: constant Exacerbating factors: other Relieving factors: nothing Associated symptoms: Reports lightheadedness, malaise and nausea Review of Systems General: Reports: 10 or more systems reviewed and unremarkable except in HPI and below Const: Reports: malaise Card: Reports: lightheadedness GI: Reports: nausea PFSH ED PFSH: Medical History (Updated 11/20/22 @ 18:54 by JORDANA Esquivel) KERI (acute kidney injury) COVID-19 Emphysema lung Headache Hypertension Hypertensive urgency Nondisplaced fracture of neck of left femur Pneumonia due to COVID-19 virus Pulmonary embolism Uncontrolled hypertension Urinary tract infection Surgical History History of repair of hip fracture Postoperative state Social History Smoking and tobacco status: never smoked Second hand smoke exposure: No Smoking risk assessment/counseling performed?: No Alcohol intake: never Desire information about alcohol rehabilitation?: No Counseling given: No Substance/Drug Use: never Desire information about substance/drug rehabilitation?: No Counseling given: No Adopted: No Caregiver/support person: No Lives independently: No Household members: spouse Housing: House Marital status: Number of children: 0 service: No Current occupational status: retired Pets and animals: No Do you think of yourself as: Straight/Heterosexual Current gender identity: Female Physical Exam Const: COMMON NORMALS: patient oriented x3 and alert GENERAL APPEARANCE: cooperative and well developed HENMT: COMMON NORMALS: normocephalic and atraumatic HEAD & SCALP: normocephalic and atraumatic Eye: COMMON NORMALS: conjunctivae normal CONJUNCTIVA: Yes conjunctivae normal SCLERA: sclerae normal Neck/C-Spine: COMMON NORMALS: supple GENERAL: Yes trachea midline Resp: COMMON NORMALS: clear to auscultation bilaterally EFFORT & INSPECTION: Yes able to speak in complete sentences AUSCULTATION: clear to auscultation bilaterally Cardio: COMMON NORMALS: regular rate and regular rhythm RATE: regular rate RHYTHM: regular rhythm GI: COMMON NORMALS: Soft to palpation PALPATION: Yes Soft to palpation and No Tenderness to palpation present (GI) Extremity: GENERAL: Yes normal exam except as noted and No edema Neuro: COMMON NORMALS: patient oriented x3, CN's II-XII intact bilaterally, moves all extremities, no focal motor deficits and no sensory deficits noted SENSORIUM/ORIENTATION: Yes alert and No Orientation impaired Psych: COMMON NORMALS: mental status grossly normal and Normal thought process present THOUGHT PROCESS: Normal thought process present Course Vital Signs: Vital signs: Vital Signs Temperature 97.9 F 11/07/22 12:40 Pulse Rate 50 L 11/07/22 12:40 Respiratory Rate 18 11/07/22 12:40 Blood Pressure 180/65 11/07/22 12:40 Pulse Oximetry 99 11/07/22 12:40 Oxygen Delivery Me thod Room Air 11/07/22 07:42 MDM - Headache Medical Decision Making 87-year-old lady presenting with headache and dizziness in the context of not taking blood pressure medications. Exam as above without focal neurologic deficits. She is nontoxic. She is quite hypertensive. EKG demonstrates sinus rhythm with borderline left axis deviation, normal intervals, nonspecific ST segment abnormalities, no STEMI. Labs notable for no leukocytosis, normal hemoglobin and platelet count. Metabolic panel with mild evidence of metabolic stress including elevated creatinine. Negative range 2R delta troponin. BNP is mildly elevated. Urinalysis concerning for urinary tract infection and viral panel pending. Chest x-ray demonstrates no lobar consolidation or pneumothorax. CTA from 11/01 reviewed no indication for repeat a vascular component. CT head negative for intracranial hemorrhage or mass. Treatment for dizziness as well as antihypertensive ordered. Patient has UTI which may account for KERI however hypertension may also be a component. Patient requires inpatient management for further delineation and treatment. The results of ED evaluation were discussed with the patient including plan for admission due to requirement for level of care not available if discharged to prevent significant worsening/deterioration. Patient agreeable with plan. Discussed with hospitalist service who was agreeable to admit patient. Medical Records I reviewed the patient's medical records. Lab Data I reviewed the patient's lab results. 11/07/22 06:15 11/07/22 06:15 Radiology Impressions Chest X-Ray 11/04/22 12:10 IMPRESSION: 1. No acute cardiopulmonary process. Head CT 11/04/22 12:10 IMPRESSION: 1. No evidence of intracranial hemorrhage or mass effect. 2. Moderate small vessel changes. Moderate parenchymal volume loss. 3. Vascular calcification. 4. No acute intracranial findings. Renal Ultrasound 11/04/22 13:44 IMPRESSION: 1. Moderate chronic medical renal disease. Significant progression since 07/19/2016. 2. No obstruction. 3. Mild cortical thinning. 4. Low normal size kidneys. Laboratory Results WBC 5.4 10^3/uL (4.0-10.0) 11/04/22 12:50 RBC 3.98 10^6/uL (4.1-5.3) L 11/04/22 12:50 Hgb 13.0 g/dL (11.5-15.3) 11/04/22 12:50 Hct 37.7 % (37.0-47.0) 11/04/22 12:50 MCV 94.7 fl (81-99) D 11/04/22 12:50 MCH 32.7 pg (28.0-34.0) 11/04/22 12:50 MCHC 34.5 g/dL (30.0-36.0) 11/04/22 12:50 RDW 12.0 % (12.1-15.1) L 11/04/22 12:50 Plt Count 187 10^3/cmm (130-400) D 11/04/22 12:50 MPV 11.0 fL (7.4-10.4) H 11/04/22 12:50 Neut % (Auto) 79.5 % 11/04/22 12:50 Lymph % (Auto) 14.0 % 11/04/22 12:50 [place] % (Auto) 5.9 % 11/04/22 12:50 Eos % (Auto) 0.0 % 11/04/22 12:50 Baso % (Auto) 0.4 % 11/04/22 12:50 Neut # (Auto) 4.31 10^3/uL (1.8-7.7) 11/04/22 12:50 Lymph # (Auto) 0.8 10^3/uL (0.8-4.8) 11/04/22 12:50 [place] # (Auto) 0.3 10^3/uL (0.2-0.9) 11/04/22 12:50 Eos # (Auto) 0.0 10^3/uL (0.0-0.8) 11/04/22 12:50 Baso # (Auto) 0.0 10^3/uL (0.0-0.1) 11/04/22 12:50 Nucleated RBC % (auto) 0 % 11/04/22 12:50 Nucleated RBCs # 0.0 /100WBC 11/04/22 12:50 Sodium 135 mmol/L (136-145) L 11/04/22 12:50 Potassium 4.0 mmol/L (3.5-5.1) 11/04/22 12:50 Chloride 101 mmol/L (98-107) 11/04/22 12:50 Carbon Dioxide 17 mmol/L (22-29) L 11/04/22 12:50 Anion Gap 21.0 (5-19) H 11/04/22 12:50 BUN 39 mg/dL (8-23) H 11/04/22 12:50 Creatinine 2.0 mg/dL (0.5-0.9) H 11/04/22 12:50 GFR Calculation Not Reportable 11/04/22 12:50 Glucose 133 mg/dL (65-115) H 11/04/22 12:50 Calculated Osmolality 291 mOsm/kg (285-295) 11/04/22 12:50 Lactate 1.8 mmol/L (0.5-2.2) 11/04/22 12:50 Calcium 8.1 mg/dL (8.5-10.5) L 11/04/22 12:50 Total Bilirubin 0.3 mg/dL (0.15-1.2) 11/04/22 12:50 AST 51 U/L (0-32) H 11/04/22 12:50 ALT 21 U/L (0-33) 11/04/22 12:50 Alkaline Phosphatase 78 U/L (35-105) 11/04/22 12:50 Troponin T Baseline 46 ng/L (0-10) H 11/04/22 12:50 Troponin T 120 Minute 46.72 ng/L (0-10) H 11/04/22 15:08 Delta Troponin T 0.72 ABS# (0-10) 11/04/22 15:08 NT-Pro-B Natriuret Pep 1075 pg/mL (0-450) H 11/04/22 12:50 Total Protein 6.7 g/dL (6.6-8.7) 11/04/22 12:50 Albumin 3.7 g/dL (3.5-5.2) 11/04/22 12:50 Globulin 3.0 g/dL (1.3-4.6) 11/04/22 12:50 Urine Color Yellow (Yellow) 11/04/22 13:55 Urine Appearance Hazy (CLEAR) A 11/04/22 13:55 Urine pH 5 (5-7) 11/04/22 13:55 Ur Specific [place] 1.015 (1.005-1.030) 11/04/22 13:55 Urine Protein 3+ (Negative) H 11/04/22 13:55 Urine Glucose (UA) Norm (Normal) 11/04/22 13:55 Urine Ketones 1+ (Negative) H 11/04/22 13:55 Urine Blood 2+ (Negative) H 11/04/22 13:55 Urine Nitrate Positive (Negative) H 11/04/22 13:55 Urine Bilirubin Neg (Negative) 11/04/22 13:55 Urine Urobilinogen Neg mg/dL (Negative) 11/04/22 13:55 Ur Leukocyte Esterase Trace (Negative) H 11/04/22 13:55 Urine RBC 25-40 /hpf (0-2) H 11/04/22 13:55 Urine WBC 40-55 /hpf (0-5) H 11/04/22 13:55 Ur Squamous Epith Cells 0-4 /hpf (0-5) H 11/04/22 13:55 Amorphous Sediment 3+ /hpf 11/04/22 13:55 Urine Bacteria 1+ /hpf (NONE) H 11/04/22 13:55 U Random Total Protein 510 mg/dL 11/04/22 13:55 Ur Random Sodium 85 mmol/L 11/04/22 13:55 Urine Creatinine 69 mg/dL (28-217) 11/04/22 13:55 Nasal Influ A H1 2009 PCR Not detected (NOT DETECT) 11/04/22 13:55 Adenovirus (PCR) Not detected (NOT DETECT) 11/04/22 13:55 C. pneumoniae DNA (PCR) Not detected (NOT DETECT) 11/04/22 13:55 Coronavirus 229E (PCR) Not detected (NOT DETECT) 11/04/22 13:55 Human Metapneumovir PCR Not detected (NOT DETECT) 11/04/22 13:55 Influenza A (H1) PCR Not detected (NOT DETECT) 11/04/22 13:55 Influenza A (H3) PCR Not detected (NOT DETECT) 11/04/22 13:55 Influenza Type A (PCR) Not detected (NOT DETECT) 11/04/22 13:55 Influenza Type B (PCR) Not detected (NOT DETECT) 11/04/22 13:55 M. pneumoniae (PCR) Not detected (NOT DETECT) 11/04/22 13:55 Parainfluenza 1 (PCR) Not detected (NOT DETECT) 11/04/22 13:55 Parainfluenza 2 (PCR) Not detected (NOT DETECT) 11/04/22 13:55 Parainfluenza 3 (PCR) Not detected (NOT DETECT) 11/04/22 13:55 Parainfluenza 4 (PCR) Not detected (NOT DETECT) 11/04/22 13:55 RSV Type A (PCR) Not detected (NOT DETECT) 11/04/22 13:55 RSV Type B (PCR) Not detected (NOT DETECT) 11/04/22 13:55 Entero/Rhino (PCR) Not detected (NOT DETECT) 11/04/22 13:55 SARS-CoV-2 (PCR) Detected (NOT DETECT) A 11/04/22 13:55 Discharge Plan Discharge Patient Disposition: Admitted As Inpatient Admit Provider: Seth Womack Clinical Impression: Urinary tract infection, Headache, KERI (acute kidney injury), Uncontrolled hypertension Condition: Stable Coding Level of Care Code ED Machine Former for Chg Fwd
--- NOTE | 2022-11-04 12:10 | CT_ITS ---
WS: [id number] CT HEAD TECHNIQUE: Noncontrast CT of the head obtained from the skullbase to the vertex. CLINICAL INFORMATION: htn, generalized headache, persistent dizziness COMPARISON: 2020 DLP: 989.[address] scans at [facility] use at least one of these dose optimization techniques: automated e xposure control; mA and/or kV adjustment per patient size (includes targeted exams where dose is matc hed to clinical indication); or iterative reconstruction. FINDINGS: No evidence of intracranial hemorrhage or mass effect. Ventricular system and basal cisterns are brown nt. Moderate small vessel changes with moderate parenchymal volume loss. No extra-axial fluid collect ions. No evidence of mass or mass effect. Paranasal sinuses and mastoid air cells are well aerated. .Normal visualized soft tissues. CT/CT head wo con* [id number] IMPRESSION: 1. No evidence of intracranial hemorrhage or mass effect. 2. Moderate small vessel changes. Moderate parenchymal volume loss. 3. Vascular calcification. 4. No acute intracranial findings.
--- NOTE | 2022-11-04 12:10 | XR_ITS ---
WS: [id number] Exam: XR chest 1V portable [id number] Date/Time of Exam: 11/04/2022 12:13 PM Reason For Exam: presyncope, htn Comparison 12/07/2020. The lungs are clear and fully expanded. Normal cardiomediastinal silhouette. No pleural effusions. [place] structures are intact. XR/XR chest 1V portable [id number] IMPRESSION: 1. No acute cardiopulmonary process.
[2022-11-04] MEDS: metoclopramide 5 mg/mL SDV 2 mL IVP (12:49)
[2022-11-04] MEDS: diphenhydrAMINE 50 mg/mL SDV 1mL 12.5 MG IVP (12:50)
[2022-11-04] MEDS: sodium chloride 0.9% 500 ML IV (13:00)
[2022-11-04 13:11] LABS: Basophils % 0.4 %; Hematocrit 37.7 % (37.0-47.0); Lymphocytes # 0.8 10^3/uL (0.8-4.8); Mean Corpuscular HGB Conc 34.5 g/dL (30.0-36.0); Mean Corpuscular Hemoglobin 32.7 pg (28.0-34.0); Mean Corpuscular Volume 94.7 fl (81-99); Monocytes # 0.3 10^3/uL (0.2-0.9); Monocytes % 5.9 %; Neutrophils # 4.31 10^3/uL (1.8-7.7); Neutrophils % 79.5 %; Nucleated Red Blood Cells % 0 %; Platelet Count 187 10^3/cmm (130-400); Red Blood Count 3.98 10^6/uL (4.1-5.3); White Blood Count 5.4 10^3/uL (4.0-10.0)
[2022-11-04 13:29] LABS: Troponin(5th) Baseline 46 ng/L (0-10)
[2022-11-04 13:37] LABS: Alanine Aminotransferase 21 U/L (0-33); Albumin Level 3.7 g/dL (3.5-5.2); Alkaline Phosphatase 78 U/L (35-105); Aspartate Amino Transferase 51 U/L (0-32); Blood Urea Nitrogen 39 mg/dL (8-23); Calcium 8.1 mg/dL (8.5-10.5); Carbon Dioxide 17 mmol/L (22-29); Chloride 101 mmol/L (98-107); Glucose 133 mg/dL (65-115); NT Pro B Type Natriuretic Pept 1075 pg/mL (0-450); Osmolality Calculated 291 mOsm/kg (285-295); Sodium 135 mmol/L (136-145); Total Bilirubin 0.3 mg/dL (0.15-1.2); Total Protein 6.7 g/dL (6.6-8.7)
--- NOTE | 2022-11-04 13:44 | US_ITS ---
WS: [id number] RENAL ULTRASOUND HISTORY: shay COMPARISON: 07/19/2016 TECHNIQUE: 2-D and color Doppler imaging of the kidney submitted. Right kidney: 9.0 cm x 4.2 cm x 4.1 cm. Cortex: 0.9 cm Diffuse increased echogenicity and poor cortical medullary differentiation. No hydronephrosis and no mass identified. Left kidney: 9.9 cm x 4.4 cm x 4.6 cm. Cortex: 1.1 cm Increased echogenicity throughout the kidney. No hydronephrosis. Lobulated appearance of the cortex. Aorta: Normal. Urinary Bladder: Nondistended. US/US renal BI* [id number] IMPRESSION: 1. Moderate chronic medical renal disease. Significant progression since 017. 2. No obstruction. 3. Mild cortical thinning. 4. Low normal size kidneys.
[2022-11-04 13:51] LABS: Lactate (Lactic Acid level) 1.8 mmol/L (0.5-2.2)
--- NOTE | 2022-11-04 14:11 | ECG_ITS ---
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 Measurements Intervals [place] Rate: 67 P: 8 NH: 167 QRS: -25 QRSD: 86 T: 31 QT: 422 QTc: 448 Interpretive Statements SINUS RHYTHM BORDERLINE LEFT AXIS DEVIATION [QRS AXIS < -20] Compared to ECG 09/13/2020 08:29:29 No significant changes Electronically Signed On 11-04-2022 20:43:49 CDT by Warren Diop M.D. [email or web address]/[id number]
[2022-11-04 14:32] LABS: Protein Urine 3+ (Negative); Specific Gravity, Urine 1.015 (1.005-1.030); Urine Appearance Hazy (CLEAR); Urine Color Yellow (Yellow); pH Urine 5 (5-7)
[2022-11-04 14:33] LABS: Bilirubin Urine Neg (Negative); Blood Urine 2+ (Negative); Glucose Urine UA Norm (Normal); Ketones Urine 1+ (Negative); Leukocyte Esterase Urine Trace (Negative); Nitrate Urine Positive (Negative); Urobilinogen Urine Neg (Negative)
[2022-11-04] MEDS: piperacillin-tazobactam 3.375 GM in sodium chloride 0.9% (plus) 50 ML IV ×2 (14:39→18:08)
[2022-11-04] MEDS: sodium chloride 0.9% 1,000 ML 999 ML IV (14:40)
[2022-11-04] MEDS: hyDRALAzine 20 mg/mL INJ 1 mL 5 MG IVP (14:40)
[2022-11-04 14:44] LABS: Add Urine Microscopic? YES; RBC Urine 25-40 /hpf (0-2); WBC Urine 40-55 /hpf (0-5)
[2022-11-04 14:45] LABS: Add Urine Culture? Yes; Amorphous Sediment Urine 3+ /hpf; Bacteria Urine 1+ /hpf; Squamous Epithelial Cell Urine 0-4 /hpf (0-5)
[2022-11-04 15:57] LABS: Adenovirus Not Detected (NOT DETECT); Chlamydia Pneumoniae Not Detected (NOT DETECT); Coronavirus 229E,HKU1,NL63,OC4 Not Detected (NOT DETECT); Human Metapneumovirus Not Detected (NOT DETECT); Human Rhinovirus/Enterovirus Not Detected (NOT DETECT); Influenza A Not Detected (NOT DETECT); Influenza A H1 Not Detected (NOT DETECT); Influenza A H1-2009 Not Detected (NOT DETECT); Influenza A H3 Not Detected (NOT DETECT); Influenza B Not Detected (NOT DETECT); Mycoplasma Pneumoniae Not Detected (NOT DETECT); Parainfluenza Virus Type 1 Not Detected (NOT DETECT); Parainfluenza Virus Type 2 Not Detected (NOT DETECT); Parainfluenza Virus Type 3 Not Detected (NOT DETECT); Parainfluenza Virus Type 4 Not Detected (NOT DETECT); Respiratory Syncytial Virus A Not Detected (NOT DETECT); Respiratory Syncytial Virus B Not Detected (NOT DETECT); SARS-COV-2 Detected (NOT DETECT)
[2022-11-04 16:01] LABS: Troponin 5 2HR 46.72 ng/L (0-10)
[2022-11-04 16:02] LABS: Troponin 5 2HR Delta 0.72 ABS# (0-10)
--- NOTE | 2022-11-04 17:03 | ECG_ITS ---
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 Measurements Intervals [place] Rate: 68 P: 54 IN: 184 QRS: 7 QRSD: 86 T: 46 QT: 443 QTc: 471 Interpretive Statements SINUS RHYTHM Compared to ECG 11/04/2022 13:47:49 No significant changes Electronically Signed On 11-04-2022 20:37:45 CDT by Warren Diop M.D. [email or web address] Developmenttyler holmes memorial hospitalmSellerohio state university wexner medical centerCenTrak/store/OM/[id number]
--- NOTE | 2022-11-04 17:49 | P.HP_ITS ---
Providers/Chief Complaint Admitting Physician: Seth Womack MD Chief Complaint: headache/dizzy History of Present Illness Mira Nicholas is a 87 year old female with past medical history of hypertension, pulmonary embolism, COVID-19, came in today with chief complaint of worsening worsening generalized headache, and dizziness,According to the patient the symptoms have been going on for the last 5 days and since then it has progressi vely worsened, describes dizziness as spinning sensation, was recently seen in the ER and was discharged on p.o. antibiotics for management of UTI, as well as on meclizine. According to her symptom has not responded any to antibiotics.CT head without contrast: Has not shown any acute intracranial pathology, renal ultrasound has shown: Moderate chronic medical renal disease. No hydronephrosis. X-ray chest: No acute cardiopulmonary process. Pertinent labs includes: WBC 5.4, H&H:13/37, PLT : 187 , serum sodium 135, serum potassium 4, BUN 39, serum creatinine 2, serum bicarb 17, serum lactic acid 1.8, troponin trend unremarkable, proBNP 1095 Urinalysis: Consistent with UTI. Patient was found to be in hypertensive urgency in ER: Documented max B/P : 225/115 , she was given hydralazine 5 mg IV one-time dose, she was also given Zosyn, IV Reglan, as well as IV fluid boluses. Review of Systems General: Reports: 10 or more systems reviewed and unremarkable except in HPI and below Const: Denies: fever(s), chills, body aches, change in appetite or diaphoresis Card: Denies: palpitations, edema, swelling of feet/ankles, dyspnea on exertion, orthopnea or leg pain with exertion Resp: Denies: dyspnea, productive cough, wheezing or pain on inspiration GI: Denies: abdominal pain, nausea, vomiting, diarrhea or constipation : Denies: flank pain Musc: Denies: back pain, extremity pain or extremity swelling Neuro: Denies: headache(s), difficulty walking or confusion Medications/Allergies Home Medications Medication Instructions Recorded Confirmed Last Taken Type coenzyme Q10 100 mg capsule 100 mg PO DAILY 10/26/20 11/04/22 10/31/22 History (CoQ-10) latanoprost 0.005 % eye drops 1 drp ophthalmic (eye) QPM #7.5 mL 03/07/21 11/04/2210/31/23 Rx timolol maleate 0.5 % eye drops 1 drp ophthalmic (eye) BID #15 mL 03/07/21 11/04/22 10/31/22 Rx meloxicam 7.5 mg tablet 7.5 mg PO DAILY #30 tabs 09/08/22 11/04/22 10/31/22 Rx amlodipine 10 mg tablet 10 mg PO DAILY #90 tabs 11/04/22 11/04/22 10/31/22 Rx ciprofloxacin HCl 500 mg tablet 500 mg PO Q12H #14 tabs 11/04/22 11/04/22 Unknown Rx meclizine 25 mg tablet 25 mg PO BID PRN dizziness #14 tabs 11/04/22 11/04/22 Unknown Rx Allergies Allergy/AdvReac Type Severity Reaction Status Date / Time No Known Allergies Allergy Verified 11/04/22 10:20 PFSH Acute PFSH: Medical History (Updated 11/04/22 @ 19:06 by Seth Womack MD) COVID-19 Emphysema lung Hypertension Nondisplaced fracture of neck of left femur Pneumonia due to COVID-19 virus Pulmonary embolism Surgical History History of repair of hip fracture Postoperative state Social History Smoking and tobacco status: never smoked Second hand smoke exposure: No Smoking risk assessment/counseling performed?: No Alcohol intake: never Desire information about alcohol rehabilitation?: No Counseling given: No Substance/Drug Use: never Desire information about substance/drug rehabilitation?: No Counseling given: No Adopted: No Caregiver/support person: No Lives independently: No Household members: spouse Housing: House Marital status: Number of children: 0 service: No Current occupational status: retired Pets and animals: No Do you think of yourself as: Straight/Heterosexual Current gender identity: Female Vitals/I&O/Wt Last Vital Signs Temp 98.3 F 11/04/22 16:00 Pulse 74 11/04/22 16:00 Resp 18 11/04/22 16:00 BP 184/81 11/04/22 16:00 Pulse Ox 99 11/04/22 16:00 O2 Del Method Room Air 11/04/22 16:00 11/04/22 11/04/22 11/04/22 06:59 14:59 22:59 Intake Total 1602 / 1602 Balance 1602 / 1602 Weight last 48 hrs Weight 43.091 kg Physical Exam Const: COMMON NORMALS: patient oriented x3 HENMT: COMMON NORMALS: normocephalic and atraumatic HEAD & SCALP: normocephalic and atraumatic Resp: COMMON NORMALS: clear to auscultation bilaterally AUSCULTATION: clear to auscultation bilaterally Cardio: COMMON NORMALS: regular rate, regular rhythm, S1 normal heart sound present, S2 normal heart sound present, No gallops present (Cardio), No murmurs present (Cardio), No rub (Cardio) and Peripheral pulses 2+ throughout RATE: regular rate RHYTHM: regular rhythm HEART SOUNDS: S1 normal heart sound present and S2 normal heart sound present PERIPHERAL PULSES: Peripheral pulses 2+ throughout GI: COMMON NORMALS: Normal to inspection, nondistended, normoactive bowel sounds present, Soft to palpation, non-tender, No hepatosplenomegaly present and no masses AUSCULTATION: Yes normoactive bowel sounds PALPATION: Yes Soft to palpation and Yes No hepatosplenomegaly present RECTAL EXAM: deferred Extremity: COMMON NORMALS: no clubbing, cyanosis or edema and no pedal edema Neuro: COMMON NORMALS: patient oriented x3 Data 11/04/22 12:50 11/04/22 12:50 Micro: Microbiology 11/04/22 12:50 Blood Culture - Preliminary Blood SPECIMEN COLLECTED 11/04/22 12:50 Blood Culture - Preliminary Blood SPECIMEN COLLECTED A&P Assessment and plan (1) Headache: (2) Urinary tract infection: (3) KERI (acute kidney injury): (4) Hypertensive urgency: (5) COVID-19: Plan 87 year old female with past medical history of hypertension, pulmonary embolism, COVID-19, came in today with chief complaint of worsening worsening generalized headache, and dizziness. Assessment: Hypertensive urgency: Associated with headache and dizziness. CT head without contrast no acute intracranial pathology Current plan is to decrease blood pressure by 25% in the first hour and then slowly decrease the blood pressure. Continue clonidine 0.1 mg p.o. 3 times daily Continue amlodipine 10 mg p.o. daily Continue telemetry monitoring Monitor blood pressure for now KERI on CKD stage III: Renal ultrasound is consistent with: Moderate chronic medical renal disease. No hydronephrosis. Random urine sodium Random urine creatinine Random urine total protein FENA UPCR Baseline serum creatinine is unknown Admission serum creatinine 2.4 Monitor BMP Avoid nephrotoxic Continue gentle IV hydration with normal saline Monitor intake output charting UTI: Follow blood culture Urine culture From we will continue with Zosyn Dizziness: Could be related to UTI and hypertensive urgency/COVID-19 Fall precaution Meclizine as needed COVD-19 :Infection:Patient is currently saturating well on R/A No acute intervention at this time. CODE STATUS: Full code DVT prophylaxis: On subcu heparin Attestations Medical Necessity Statement*: Patient is in hospital for management of UTI hypertensive urgency KERI, need for IV fluids need for antibiotics.Anticipated length of stay greater than 2 midnights. Coding Level of Care Code Acute Code for [facility] Fwd Diagnoses Headache R51.9 Urinary tract infection N39.0 KERI (acute kidney injury) N17.9 Hypertensive urgency I16.0 COVID-19 U07.1
[2022-11-04] MEDS: heparin 5,000 unit/mL INJ 1 mL 5000 UNIT SUBCUT (18:09)
[2022-11-04] MEDS: cloNIDine 0.1 mg Tablet PO ×2 (18:09→20:37)
[2022-11-04] MEDS: sodium chloride 0.9% 1,000 ML 75 ML IV (18:09)
[2022-11-04] MEDS: timolol 0.5% Op Soln 5 mL Btl 1 DROP EYE-BOTH (18:11)
[2022-11-04] MEDS: latanoprost 0.005% Op Soln 2.5 mL Btl 1 DROP EYE-BOTH (18:11)
--- NOTE | 2022-11-04 18:22 | ECG_ITS ---
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 Measurements Intervals [place] Rate: 65 P: 22 CO: 170 QRS: 4 QRSD: 89 T: 48 QT: 447 QTc: 466 Interpretive Statements SINUS RHYTHM Compared to ECG 11/04/2022 17:03:43 No significant changes Electronically Signed On 11-04-2022 20:41:46 CDT by Warren Diop M.D. [email or web address] [facility]king[facility] daughters medical centerAxcelercincinnati va [facility] center.Pionetics/store/OM/[id number]
[2022-11-04 19:18] LABS: Creatinine Urine, Random 69 mg/dL (28-217)
[2022-11-04 19:24] LABS: Urine Random Sodium 85 mmol/L
[2022-11-04 19:32] LABS: Troponin 5 6HR 40.77 ng/L (0-10)
[2022-11-04 19:33] LABS: Troponin 5 6HR Delta -5.23 ng/L (0-12)
[2022-11-04 19:40] LABS: Urine Protein Random 510 mg/dL
[2022-11-05] VITALS (15 sets, daily range): BP systolic 135–196; BP diastolic 64–77; PULSE 48–59; RESP 15–18; TEMP 36.4–36.6; O2SAT 95–98
[2022-11-05] MEDS: piperacillin-tazobactam 3.375 GM in sodium chloride 0.9% (plus) 50 ML IV ×2 (05:40→17:01)
[2022-11-05] MEDS: heparin 5,000 unit/mL INJ 1 mL 5000 UNIT SUBCUT ×2 (05:40→17:01)
[2022-11-05 07:03] LABS: Basophils % 0.2 %; Eosinophils % 0.2 %; Hematocrit 28.2 % (37.0-47.0); Hemoglobin 9.6 g/dL (11.5-15.3); Lymphocytes # 1.3 10^3/uL (0.8-4.8); Lymphocytes % 29.3 %; Mean Corpuscular Hemoglobin 32.8 pg (28.0-34.0); Mean Corpuscular Volume 96.2 fl (81-99); Mean Platelet Volume 10.8 fL (7.4-10.4); Monocytes # 0.5 10^3/uL (0.2-0.9); Monocytes % 11.8 %; Neutrophils # 2.55 10^3/uL (1.8-7.7); Nucleated Red Blood Cells % 0 %; Platelet Count 137 10^3/cmm (130-400); Red Blood Count 2.93 10^6/uL (4.1-5.3); Red Cell Distribution Width 12.1 % (12.1-15.1); White Blood Count 4.4 10^3/uL (4.0-10.0)
[2022-11-05 07:21] LABS: Anion Gap 15.2 (5-19); Blood Urea Nitrogen 34 mg/dL (8-23); Carbon Dioxide 19 mmol/L (22-29); Chloride 109 mmol/L (98-107); Glucose 75 mg/dL (65-115); Magnesium 2.3 mg/dL (1.7-2.3); Osmolality Calculated 294 mOsm/kg (285-295); Potassium 4.2 mmol/L (3.5-5.1); Sodium 139 mmol/L (136-145)
[2022-11-05] MEDS: sodium chloride 0.9% 1,000 ML 75 ML IV ×2 (07:57→20:53)
[2022-11-05] MEDS: cloNIDine 0.1 mg Tablet PO ×3 (08:16→20:47)
[2022-11-05] MEDS: amlodipine 10 mg Tablet PO (08:16)
[2022-11-05] MEDS: timolol 0.5% Op Soln 5 mL Btl 1 DROP EYE-BOTH ×2 (08:17→17:02)
--- NOTE | 2022-11-05 13:59 | PC.NURSE ---
Patients bedside, c/o patient still sick after having been in ER recently. I am not filling any medications until I know she is going to stay home and she was just in here and she is back. was holding discharge paperwork and prescription, this nurse inquired about the script in hand. said, I don't see why this needs to be filled if she just keeps coming back and how did she get this urinary tract infection for women. This nurse sat at bedside for approximately 30 minutes explaining the need for antibiotics and to finish them as well as blood pressure medication.
[2022-11-05] MEDS: acetaminophen 325 mg Tablet 650 MG PO (17:01)
[2022-11-05] MEDS: latanoprost 0.005% Op Soln 2.5 mL Btl 1 DROP EYE-BOTH (17:02)
--- NOTE | 2022-11-05 19:39 | PM.PN ---
Subjective Subjective: Patient is still complaining of some dizziness as well as headache. Medications: Medication Review Details: Generic Name Dose Route Start Last Admin Trade Name Freq PRN Reason Stop Dose Admin Acetaminophen 650 mg 11/04/22 17:43 11/05/22 17:01 Acetaminophen 32 5 Mg Tablet PO 650 mg Q6H PRN Administration Mild/Mod Pain Or Temp >/= 101 Amlodipine Besylat e 10 mg 11/05/22 09:00 11/05/22 08:16 Amlodipine 10 Mg Tablet PO 10 mg DAILY KAITLIN Administration Clonidine HCl 0.1 mg 11/04/22 17:50 11/05/22 14:44 Clonidine 0.1 Mg Tablet PO 0.1 mg TID KAITLIN Administration Heparin Sodium (Po rcine) 5,000 unit 11/04/22 17:45 11/05/22 17:01 Heparin 5,000 Un it/Ml Inj 1 Ml SUBCUT 5,000 unit Q12H KAITLIN Administration Sodium Chloride 1,000 mls @ 75 ml s/hr 11/04/22 17:45 11/05/22 07:57 Sodium Chloride 0.9% IV 75 mls/hr .[id number] KAITLIN Administration Piperacillin Sod/T azobactam 50 mls @ 12.5 mls /hr 11/04/22 18:00 11/05/22 17:01 Sod 3.375 gm/ So dium Chloride IV 12.5 mls/hr Q12H KAITLIN Administration Protocol Latanoprost 1 drop 11/04/22 18:00 11/05/22 17:02 Latanoprost 0.00 5% Op Soln 2.5 Ml Btl EYE-BOTH 1 drop QPM KAITLIN Administration Timolol Maleate 1 drop 11/04/22 18:00 11/05/22 17:02 Timolol 0.5% Op Soln 5 Ml Btl EYE-BOTH 1 drop BID KAITLIN Administration Vitals/I&O/Wt Last Vital Signs Temp 97.9 F 11/05/22 19:25 Pulse 52 L 11/05/22 19:25 Resp 15 11/05/22 19:25 BP 141/66 11/05/22 19:25 Pulse Ox 96 11/05/22 19:15 O2 Del Method Room Air 11/05/22 19:15 11/05/22 11/05/22 11/05/22 06:59 14:59 22:59 Intake Total 1370 / 1370 120 / 1490 Output Total 300 / 300 Balance 1070 / 1070 120 / 1190 Weight last 48 hrs Weight 43.091 kg Physical Exam Const: COMMON NORMALS: patient oriented x3 HENMT: COMMON NORMALS: normocephalic and atraumatic HEAD & SCALP: normocephalic and atraumatic Resp: COMMON NORMALS: clear to auscultation bilaterally AUSCULTATION: clear to auscultation bilaterally Cardio: COMMON NORMALS: regular rate, regular rhythm, S1 normal heart sound present, S2 normal heart sound present, No gallops present (Cardio), No murmurs present (Cardio), No rub (Cardio) and Peripheral pulses 2+ throughout RATE: regular rate RHYTHM: regular rhythm HEART SOUNDS: S1 normal heart sound present and S2 normal heart sound present PERIPHERAL PULSES: Peripheral pulses 2+ throughout GI: COMMON NORMALS: Normal to inspection, nondistended, normoactive bowel sounds present, Soft to palpation, non-tender, No hepatosplenomegaly present and no masses AUSCULTATION: Yes normoactive bowel sounds PALPATION: Yes Soft to palpation and Yes No hepatosplenomegaly present RECTAL EXAM: deferred Extremity: COMMON NORMALS: no clubbing, cyanosis or edema and no pedal edema Neuro: COMMON NORMALS: patient oriented x3 Data 11/05/22 06:40 11/05/22 06:40 Micro: Microbiology 11/04/22 12:50 Blood Culture - Preliminary Blood NEGATIVE TO DATE 11/04/22 12:50 Blood Culture - Preliminary Blood NEGATIVE TO DATE 11/04/22 13:55 Urine Culture - Preliminary Urine,Clean Catch A&P Assessment and plan (1) Headache: (2) Urinary tract infection: (3) KERI (acute kidney injury): (4) Hypertensive urgency: (5) COVID-19: Plan 87 year old female with past medical history of hypertension, pulmonary embolism, COVID-19, came in today with chief complaint of worsening worsening generalized headache, and dizziness. Assessment: Hypertensive urgency: Associated with headache and dizziness. CT head without contrast no acute intracranial pathology Current plan is to decrease blood pressure by 25% in the first hour and then slowly decrease the blood pressure. Continue clonidine 0.1 mg p.o. 3 times daily Continue amlodipine 10 mg p.o. daily Continue telemetry monitoring Monitor blood pressure for now KERI on CKD stage III: Renal ultrasound is consistent with: Moderate chronic medical renal disease. No hydronephrosis. Random urine sodium Random urine creatinine Random urine total protein FENA UPCR Baseline serum creatinine is unknown Admission serum creatinine 2.4 Monitor BMP Avoid nephrotoxic Continue gentle IV hydration with normal saline Monitor intake output charting UTI: Follow blood culture Urine culture Recent urine culture has grown E. coli From we will continue with Zosyn Dizziness: Could be related to UTI and hypertensive urgency/COVID-19 Fall precaution Meclizine as needed COVD-19 :Infection:Patient is currently saturating well on R/A No acute intervention at this time. CODE STATUS: Full code DVT prophylaxis: On subcu heparin Attestations Medical Necessity Statement*: In hospital for IV antibiotics Coding Level of Care Code 51197 Diagnoses Headache R51.9 Urinary tract infection N39.0 KERI (acute kidney injury) N17.9 Hypertensive urgency I16.0 COVID-19 U07.1
[2022-11-06] VITALS (16 sets, daily range): BP systolic 125–167; BP diastolic 56–80; PULSE 45–60; RESP 15–18; TEMP 36.6–36.8; O2SAT 96–99
[2022-11-06] MEDS: heparin 5,000 unit/mL INJ 1 mL 5000 UNIT SUBCUT ×2 (05:31→18:45)
[2022-11-06] MEDS: piperacillin-tazobactam 3.375 GM in sodium chloride 0.9% (plus) 50 ML IV (05:31)
[2022-11-06 06:28] LABS: Basophils % 0.3 %; Eosinophils # 0.1 10^3/uL (0.0-0.8); Eosinophils % 1.4 %; Hemoglobin 10.3 g/dL (11.5-15.3); Lymphocytes # 1.8 10^3/uL (0.8-4.8); Lymphocytes % 48.2 %; Mean Corpuscular HGB Conc 33.2 g/dL (30.0-36.0); Mean Corpuscular Hemoglobin 32.2 pg (28.0-34.0); Mean Corpuscular Volume 96.9 fl (81-99); Mean Platelet Volume 10.2 fL (7.4-10.4); Monocytes # 0.4 10^3/uL (0.2-0.9); Monocytes % 10.2 %; Neutrophils # 1.44 10^3/uL (1.8-7.7); Neutrophils % 39.6 %; Nucleated Red Blood Cells % 0 %; Platelet Count 143 10^3/cmm (130-400); Red Cell Distribution Width 12.2 % (12.1-15.1); White Blood Count 3.6 10^3/uL (4.0-10.0)
[2022-11-06 06:43] LABS: Anion Gap 13.6 (5-19); Blood Urea Nitrogen 22 mg/dL (8-23); Calcium 8.1 mg/dL (8.5-10.5); Carbon Dioxide 19 mmol/L (22-29); Chloride 106 mmol/L (98-107); Glucose 88 mg/dL (65-115); Osmolality Calculated 283 mOsm/kg (285-295); Potassium 3.6 mmol/L (3.5-5.1); Sodium 135 mmol/L (136-145)
[2022-11-06] MEDS: cloNIDine 0.1 mg Tablet PO ×3 (08:35→20:31)
[2022-11-06] MEDS: timolol 0.5% Op Soln 5 mL Btl 1 DROP EYE-BOTH ×2 (08:35→18:44)
[2022-11-06] MEDS: amlodipine 10 mg Tablet PO (08:39)
[2022-11-06] MEDS: sodium chloride 0.9% 1,000 ML 75 ML IV (10:00)
[2022-11-06] MEDS: acetaminophen 325 mg Tablet 650 MG PO (10:03)
[2022-11-06] MEDS: oxyCODONE-APAP 5-325 mg Tablet 1 TAB PO ×2 (15:09→20:45)
--- NOTE | 2022-11-06 15:31 | P.PN_ITS ---
Subjective Subjective: Patient was seen and examined this morning she was complaining of severe headache.She is still complaining of occasional dizziness. She is also complaining of generalized weakness, and she is also afraid that she will experience some fall. Medications: Medication Review Details: Generic Name Dose Route Start Last Admin Trade Name Freq PRN Reason Stop Dose Admin Acetaminophen 650 mg 11/04/22 17:43 11/06/22 10:03 Acetaminophen 32 5 Mg Tablet PO 650 mg Q6H PRN Administration Mild/Mod Pain Or Temp >/= 101 Amlodipine Besylat e 10 mg 11/05/22 09:00 11/06/22 08:39 Amlodipine 10 Mg Tablet PO 10 mg DAILY KAITLIN Administration Clonidine HCl 0.1 mg 11/04/22 17:50 11/06/22 15:30 Clonidine 0.1 Mg Tablet PO 0.1 mg TID KAITLIN Administration Heparin Sodium (Po rcine) 5,000 unit 11/04/22 17:45 11/06/22 05:31 Heparin 5,000 Un it/Ml Inj 1 Ml SUBCUT 5,000 unit Q12H KAITLIN Administration Piperacillin Sod/T azobactam 50 mls @ 12.5 mls /hr 11/04/22 18:00 11/06/22 05:31 Sod 3.375 gm/ So dium Chloride IV 12.5 mls/hr Q12H KAITLIN Administration Protocol Latanoprost 1 drop 11/04/22 18:00 11/05/22 17:02 Latanoprost 0.00 5% Op Soln 2.5 Ml Btl EYE-BOTH 1 drop QPM KAITLIN Administration Oxycodone/Acetamin ophen 1 tab 11/04/22 17:43 11/06/22 15:09 Oxycodone-Apap 5 -325 Mg Tablet PO 1 tab Q4H PRN Administration SEVERE PAIN Timolol Maleate 1 drop 11/04/22 18:00 11/06/22 08:35 Timolol 0.5% Op Soln 5 Ml Btl EYE-BOTH 1 drop BID KAITLIN Administration Vitals/I&O/Wt Last Vital Signs Temp 98.2 F 11/06/22 12:00 Pulse 53 L 11/06/22 12:00 Resp 15 11/06/22 15:09 BP 144/57 11/06/22 15:30 Pulse Ox 98 11/06/22 15:09 O2 Del Method Room Air 11/06/22 08:33 11/06/22 11/06/22 11/06/22 06:59 14:59 22:59 Intake Total 1103.75 / 1103.75 Balance 1103.75 / 1103.75 Physical Exam Const: COMMON NORMALS: patient oriented x3 HENMT: COMMON NORMALS: normocephalic and atraumatic HEAD & SCALP: normocephalic and atraumatic Resp: COMMON NORMALS: clear to auscultation bilaterally AUSCULTATION: clear to auscultation bilaterally Cardio: COMMON NORMALS: regular rate, regular rhythm, S1 normal heart sound present, S2 normal heart sound present, No gallops present (Cardio), No murmurs present (Cardio), No rub (Cardio) and Peripheral pulses 2+ throughout RATE: regular rate RHYTHM: regular rhythm HEART SOUNDS: S1 normal heart sound present and S2 normal heart sound present PERIPHERAL PULSES: Peripheral pulses 2+ throughout GI: COMMON NORMALS: Normal to inspection, nondistended, normoactive bowel sounds present, Soft to palpation, non-tender, No hepatosplenomegaly present and no masses AUSCULTATION: Yes normoactive bowel sounds PALPATION: Yes Soft to palpation and Yes No hepatosplenomegaly present RECTAL EXAM: deferred Extremity: COMMON NORMALS: no clubbing, cyanosis or edema and no pedal edema Neuro: COMMON NORMALS: patient oriented x3 Data 11/06/22 06:09 11/06/22 06:09 Micro: Microbiology 11/04/22 13:55 Urine Culture - Final Urine,Clean Catch 11/04/22 12:50 Blood Culture - Preliminary Blood NEGATIVE TO DATE 11/04/22 12:50 Blood Culture - Preliminary Blood NEGATIVE TO DATE A&P Assessment and plan (1) Headache: (2) Urinary tract infection: (3) KERI (acute kidney injury): (4) Hypertensive urgency: (5) COVID-19: Plan 87 year old female with past medical history of hypertension, pulmonary e mbolism, COVID-19, came in today with chief complaint of worsening worsening generalized headache, and dizziness. Assessment: Hypertensive urgency: Associated with headache and dizziness. CT head without contrast no acute intracranial pathology Current plan is to decrease blood pressure by 25% in the first hour and then slowly decrease the blood pressure. Continue clonidine 0.1 mg p.o. 3 times daily Continue amlodipine 10 mg p.o. daily Continue telemetry monitoring Monitor blood pressure for now KERI on CKD stage III: Renal ultrasound is consistent with: Moderate chronic medical renal disease. No hydronephrosis. Random urine sodium Random urine creatinine Random urine total protein FENA UPCR Baseline serum creatinine is unknown Admission serum creatinine 2.4 Monitor BMP Avoid nephrotoxic Continue gentle IV hydration with normal saline Monitor intake output charting UTI: Follow blood culture Urine culture Recent urine culture has grown E. coli From we will continue with Zosyn Dizziness: Could be related to UTI and hypertensive urgency/COVID-19 Fall precaution Meclizine as needed COVD-19 :Infection:Patient is currently saturating well on R/A No acute intervention at this time. CODE STATUS: Full code DVT prophylaxis: On subcu heparin Attestations Medical Necessity Statement*: Needs to be in hospital management of UTI COVID-19, need for IV antibiotic. Coding Level of Care Code Acute Code for [facility] Diagnoses Headache R51.9 Urinary tract infection N39.0 KERI (acute kidney injury) N17.9 Hypertensive urgency I16.0 COVID-19 U07.1
--- NOTE | 2022-11-06 15:31 | PC.NURSE ---
Notified Dr. Womack patients blood pressure is 144/57. Dr. Womack stated to give patient scheduled clonidine 0.1.
[2022-11-06] MEDS: latanoprost 0.005% Op Soln 2.5 mL Btl 1 DROP EYE-BOTH (18:44)
[2022-11-07] VITALS (8 sets, daily range): BP systolic 169–180; BP diastolic 65–75; PULSE 49–52; RESP 14–18; TEMP 36.6–36.7; O2SAT 97–99
[2022-11-07] MEDS: ondansetron 2 mg/ML SDV 2 mL 4 MG IVP (00:55)
[2022-11-07] MEDS: heparin 5,000 unit/mL INJ 1 mL 5000 UNIT SUBCUT (05:42)
[2022-11-07 06:38] LABS: Basophils % 0.2 %; Eosinophils % 0.5 %; Hematocrit 30.8 % (37.0-47.0); Hemoglobin 10.6 g/dL (11.5-15.3); Lymphocytes # 2.3 10^3/uL (0.8-4.8); Lymphocytes % 51.7 %; Mean Corpuscular HGB Conc 34.4 g/dL (30.0-36.0); Mean Corpuscular Hemoglobin 32.7 pg (28.0-34.0); Mean Corpuscular Volume 95.1 fl (81-99); Mean Platelet Volume 10.8 fL (7.4-10.4); Monocytes # 0.4 10^3/uL (0.2-0.9); Monocytes % 8.7 %; Neutrophils # 1.68 10^3/uL (1.8-7.7); Neutrophils % 38.4 %; Nucleated Red Blood Cells % 0 %; Platelet Count 151 10^3/cmm (130-400); Red Blood Count 3.24 10^6/uL (4.1-5.3); Red Cell Distribution Width 11.8 % (12.1-15.1); White Blood Count 4.4 10^3/uL (4.0-10.0)
[2022-11-07 06:57] LABS: Anion Gap 15.7 (5-19); Blood Urea Nitrogen 15 mg/dL (8-23); Calcium 8.5 mg/dL (8.5-10.5); Carbon Dioxide 19 mmol/L (22-29); Chloride 103 mmol/L (98-107); Glucose 101 mg/dL (65-115); Osmolality Calculated 279 mOsm/kg (285-295); Potassium 3.7 mmol/L (3.5-5.1); Sodium 134 mmol/L (136-145)
[2022-11-07] MEDS: cefTRIAXone 1,000 MG in sodium chloride 0.9% (plus) 50 ML 100 MG IV (06:58)
--- NOTE | 2022-11-07 09:23 | PM.DCS ---
Discharge Providers Date of Admission: 11/04/22 15:27 Date of Discharge: November 07, 2022 Attending Provider at Admission: Seth Womack MD Attending Provider at Discharge: Seth Womack MD Primary Care Provider: SONYA Cristobal Diagnoses at Discharge Discharge Diagnosis (1) Headache: Status: Acute (2) Urinary tract infection: Status: Acute (3) KERI (acute kidney injury): Status: Acute (4) Hypertensive urgency: Status: Acute (5) COVID-19: Status: Acute Reason for Visit Reason for Visit: headache/dizzy Hospital Course Hospital Course 87 year old female with past medical history of hypertension, pulmonary embolism, COVID-19, came in today with chief complaint of worsening worsening generalized headache, and dizziness.She was admitted for management of hypertensive urgency, COVID-19, KERI on CKD stage III, UTI. During the hospital stay for hypertensive urgency she was kept on, amlodipine, as well as clonidine, she was discharged on amlodipine as well as hydralazine 50 p.o. 3 times daily, clonidine was not continued as she was having relative bradycardia,CT head without contrast no acute intracranial pathology, possibility of PRES was in consideration, given hypertensive urgency, dizziness and headache, optimal blood pressure controlled was attempted. All these constellations of findings could also be possible due to COVID-19, UTI.With regards to COVID-19, she was saturating well on room air, no other conventional Intervention was undertaken.For UTI she was initially on Zosyn, urine culture during the hospital stay failed to show any growth, blood culture was negative, most recent urine culture has grown E. coli. With regards to her likely prerenal KERI she was continued on IV hydration, to which he responded well serum creatinine was trending down, serum creatinine at the time of discharge was trending down it was 1.4. With regards to her blood pressure patient has been asked to keep a log of her blood pressure And visit her primary care physician in 1 week time so that at that point appropriate adjustment can be made to her antihypertensive medication regimen. Overall patient responded well to above medical management and is being discharged in stable condition to home. Physical Exam Const: COMMON NORMALS: patient oriented x3 HENMT: COMMON NORMALS: normocephalic and atraumatic HEAD & SCALP: normocephalic and atraumatic Resp: COMMON NORMALS: clear to auscultation bilaterally AUSCULTATION: clear to auscultation bilaterally Cardio: COMMON NORMALS: regular rate, regular rhythm, S1 normal heart sound present, S2 normal heart sound present, No gallops present (Cardio), No murmurs present (Cardio), No rub (Cardio) and Peripheral pulses 2+ throughout RATE: regular rate RHYTHM: regular rhythm HEART SOUNDS: S1 normal heart sound present and S2 normal heart sound present PERIPHERAL PULSES: Peripheral pulses 2+ throughout GI: COMMON NORMALS: Normal to inspection, nondistended, normoactive bowel sounds present, Soft to palpation, non-tender, No hepatosplenomegaly present and no masses AUSCULTATION: Yes normoactive bowel sounds PALPATION: Yes Soft to palpation and Yes No hepatosplenomegaly present RECTAL EXAM: deferred Extremity: COMMON NORMALS: no clubbing, cyanosis or edema and no pedal edema Neuro: COMMON NORMALS: patient oriented x3 Discharge Data Studies Completed and Pending Completed Studies During Hospitalization Category Date Time Status CT head wo con* [id number] Stat Cat Scan 11/04/22 12:10 Completed XR chest 1V portable [id number] Stat Exams 11/04/22 12:10 Completed US renal BI* [id number] Stat Ultrasound 11/04/22 13:44 Completed Pending at discharge Category Date Time Status Blood Culture Stat Lab 11/04/22 12:50 Results Radiology Impressions Chest X-Ray 11/04/22 12:10 IMPRESSION: 1. No acute cardiopulmonary process. Head CT 11/04/22 12:10 IMPRESSION: 1. No evidence of intracranial hemorrhage or mass effect. 2. Moderate small vessel changes. Moderate parenchymal volume loss. 3. Vascular calcification. 4. No acute intracranial findings. Renal Ultrasound 11/04/22 13:44 IMPRESSION: 1. Moderate chronic medical renal disease. Significant progression since 07/19/2016. 2. No obstruction. 3. Mild cortical thinning. 4. Low normal size kidneys. Laboratory Results WBC 4.4 10^3/uL (4.0-10.0) 11/07/22 06:15 RBC 3.24 10^6/uL (4.1-5.3) L 11/07/22 06:15 Hgb 10.6 g/dL (11.5-15.3) L 11/07/22 06:15 Hct 30.8 % (37.0-47.0) L 11/07/22 06:15 MCV 95.1 fl (81-99) 11/07/22 06:15 MCH 32.7 pg (28.0-34.0) 11/07/22 06:15 MCHC 34.4 g/dL (30.0-36.0) 11/07/22 06:15 RDW 11.8 % (12.1-15.1) L 11/07/22 06:15 Plt Count 151 10^3/cmm (130-400) 11/07/22 06:15 MPV 10.8 fL (7.4-10.4) H 11/07/22 06:15 Neut % (Auto) 38.4 % 11/07/22 06:15 Lymph % (Auto) 51.7 % 11/07/22 06:15 [place] % (Auto) 8.7 % 11/07/22 06:15 Eos % (Auto) 0.5 % 11/07/22 06:15 Baso % (Auto) 0.2 % 11/07/22 06:15 Neut # (Auto) 1.68 10^3/uL (1.8-7.7) L 11/07/22 06:15 Lymph # (Auto) 2.3 10^3/uL (0.8-4.8) 11/07/22 06:15 [place] # (Auto) 0.4 10^3/uL (0.2-0.9) 11/07/22 06:15 Eos # (Auto) 0.0 10^3/uL (0.0-0.8) 11/07/22 06:15 Baso # (Auto) 0.0 10^3/uL (0.0-0.1) 11/07/22 06:15 Nucleated RBC % (auto) 0 % 11/07/22 06:15 Nucleated RBCs # 0.0 /100WBC 11/07/22 06:15 Sodium 134 mmol/L (136-145) L 11/07/22 06:15 Potassium 3.7 mmol/L (3.5-5.1) 11/07/22 06:15 Chloride 103 mmol/L (98-107) 11/07/22 06:15 Carbon Dioxide 19 mmol/L (22-29) L 11/07/22 06:15 Anion Gap 15.7 (5-19) 11/07/22 06:15 BUN 15 mg/dL (8-23) 11/07/22 06:15 Creatinine 1.4 mg/dL (0.5-0.9) H 11/07/22 06:15 GFR Calculation Not Reportable 11/07/22 06:15 Glucose 101 mg/dL (65-115) 11/07/22 06:15 Calculated Osmolality 279 mOsm/kg (285-295) L 11/07/22 06:15 Lactate 1.8 mmol/L (0.5-2.2) 11/04/22 12:50 Calcium 8.5 mg/dL (8.5-10.5) 11/07/22 06:15 Magnesium 2.3 mg/dL (1.7-2.3) 11/05/22 06:40 Total Bilirubin 0.3 mg/dL (0.15-1.2) 11/04/22 12:50 AST 51 U/L (0-32) H 11/04/22 12:50 ALT 21 U/L (0-33) 11/04/22 12:50 Alkaline Phosphatase 78 U/L (35-105) 11/04/22 12:50 Troponin T Baseline 46 ng/L (0-10) H 11/04/22 12:50 Troponin T 120 Minute 46.72 ng/L (0-10) H 11/04/22 15:08 Delta Troponin T 0.72 ABS# (0-10) 11/04/22 15:08 Troponin T Hi Sens 6Hr 40.77 ng/L (0-10) H 11/04/22 18:55 Troponin T Hi Sens 6Hr Delta -5.23 ng/L (0-12) L 11/04/22 18:55 NT-Pro-B Natriuret Pep 1075 pg/mL (0-450) H 11/04/22 12:50 Total Protein 6.7 g/dL (6.6-8.7) 11/04/22 12:50 Albumin 3.7 g/dL (3.5-5.2) 11/04/22 12:50 Globulin 3.0 g/dL (1.3-4.6) 11/04/22 12:50 Urine Color Yellow (Yellow) 11/04/22 13:55 Urine Appearance Hazy (CLEAR) A 11/04/22 13:55 Urine pH 5 (5-7) 11/04/22 13:55 Ur Specific [place] 1.015 (1.005-1.030) 11/04/22 13:55 Urine Protein 3+ (Negative) H 11/04/22 13:55 Urine Glucose (UA) Norm (Normal) 11/04/22 13:55 Urine Ketones 1+ (Negative) H 11/04/22 13:55 Urine Blood 2+ (Negative) H 11/04/22 13:55 Urine Nitrate Positive (Negative) H 11/04/22 13:55 Urine Bilirubin Neg (Negative) 11/04/22 13:55 Urine Urobilinogen Neg mg/dL (Negative) 11/04/22 13:55 Ur Leukocyte Esterase Trace (Negative) H 11/04/22 13:55 Urine RBC 25-40 /hpf (0-2) H 11/04/22 13:55 Urine WBC 40-55 /hpf (0-5) H 11/04/22 13:55 Ur Squamous Epith Cells 0-4 /hpf (0-5) H 11/04/22 13:55 Amorphous Sediment 3+ /hpf 11/04/22 13:55 Urine Bacteria 1+ /hpf (NONE) H 11/04/22 13:55 U Random Total Protein 510 mg/dL 11/04/22 13:55 Ur Random Sodium 85 mmol/L 11/04/22 13:55 Urine Creatinine 69 mg/dL (28-217) 11/04/22 13:55 Nasal Influ A H1 2009 PCR Not detected (NOT DETECT) 11/04/22 13:55 Adenovirus (PCR) Not detected (NOT DETECT) 11/04/22 13:55 C. pneumoniae DNA (PCR) Not detected (NOT DETECT) 11/04/22 13:55 Coronavirus 229E (PCR) Not detected (NOT DETECT) 11/04/22 13:55 Human Metapneumovir PCR Not detected (NOT DETECT) 11/04/22 13:55 Influenza A (H1) PCR Not detected (NOT DETECT) 11/04/22 13:55 Influenza A (H3) PCR Not detected (NOT DETECT) 11/04/22 13:55 Influenza Type A (PCR) Not detected (NOT DETECT) 11/04/22 13:55 Influenza Type B (PCR) Not detected (NOT DETECT) 11/04/22 13:55 M. pneumoniae (PCR) Not detected (NOT DETECT) 11/04/22 13:55 Parainfluenza 1 (PCR) Not detected (NOT DETECT) 11/04/22 13:55 Parainfluenza 2 (PCR) Not detected (NOT DETECT) 11/04/22 13:55 Parainfluenza 3 (PCR) Not detected (NOT DETECT) 11/04/22 13:55 Parainfluenza 4 (PCR) Not detected (NOT DETECT) 11/04/22 13:55 RSV Type A (PCR) Not detected (NOT DETECT) 11/04/22 13:55 RSV Type B (PCR) Not detected (NOT DETECT) 11/04/22 13:55 Entero/Rhino (PCR) Not detected (NOT DETECT) 11/04/22 13:55 SARS-CoV-2 (PCR) Detected (NOT DETECT) A 11/04/22 13:55 Vitals Last Vital Signs Temp 98.0 F 11/07/22 08:00 Pulse 52 L 11/07/22 08:00 Resp 16 11/07/22 08:00 BP 175/68 11/07/22 08:00 Pulse Ox 98 11/07/22 08:00 O2 Del Method Room Air 11/07/22 07:42 Discharge Plan Discharge Patient Disposition: Home Condition: Stable Prescriptions: New hydralazine 50 mg tablet 50 mg PO TID Qty: 90 2RF Continued latanoprost 0.005 % drops 1 drp ophthalmic (eye) QPM Qty: 7.5 5RF Rx Instructions: BOTH EYES timolol maleate 0.5 % drops 1 drp ophthalmic (eye) BID Qty: 15 5RF Rx Instructions: BOTH EYES meloxicam 7.5 mg tablet 7.5 mg PO DAILY Qty: 30 0RF coenzyme Q10 [CoQ-10] 100 mg Capsule 100 mg PO DAILY amlodipine 10 mg tablet 10 mg PO DAILY 30 Days Qty: 30 3RF meclizine 25 mg tablet 25 mg PO BID PRN (Reason: dizziness) 14 Days Qty: 28 0RF Discontinued ciprofloxacin HCl 500 mg tablet 500 mg PO Q12H Qty: 14 0RF Rx Instructions: DO NOT TAKE WITH TIZANIDINE Discharge Orders: Discharge Order (Routine); Ordered 11/07/22 Ordered By: Seth Womack Other Ambulatory Orders: Physical Therapy Eval and Treat Outpatient (Order) Timeframe: 3 Days Facility: [facility] - Location: Physical Therapy [place] Ordered By: Seth Womack Referrals: Dena Bro FNP-C [Primary Care Provider] - 11/17/22 10:40 am Patient Instructions: Hydralazine (By mouth), Hypertension, Urinary Tract Infection in Women (DC), Chronic Hypertension (DC), Opioid Safety Discharge Attestations Time Spent in Discharge Care*: less than 30 min Quality Metrics Clinical Quality Measures [ No reported AMI, CVA or VTE this stay] Coding Level of Care Code Acute Code for [facility] Diagnoses Headache R51.9 Urinary tract infection N39.0 KERI (acute kidney injury) N17.9 Hypertensive urgency I16.0 COVID-19 U07.1
[2022-11-07] MEDS: amlodipine 10 mg Tablet PO (10:13)
[2022-11-07] MEDS: cloNIDine 0.1 mg Tablet PO (10:14)
[2022-11-07] MEDS: timolol 0.5% Op Soln 5 mL Btl 1 DROP EYE-BOTH (10:18)
--- NOTE | 2022-11-07 11:11 | PC.SOCIAL ---
IMM Update pg 2 of IMM updated and reviewed w/ patient. Copy provided and Copy dated, initialed and placed in chart.
== END 2022-11-07 12:40 | disposition home or self-care (01) | DRG 682 ==
LOC: ER 15:09 → MEDSURG 15:28
PROVIDERS: Admitting Provider Internal Medicine; Emergency Provider Emergency Medicine; PCP Nurse Practitioner; Visit Provider Internal Medicine
DX: N17.9 Acute kidney failure, unspecified (principal); U07.1 COVID-19; N39.0 Urinary tract infection, site not specified; I16.0 Hypertensive urgency; I12.9 Hypertensive chronic kidney disease with stage 1 through stage 4 chronic kidney disease, or unspecified chronic kidney disease; N18.30 Chronic kidney disease, stage 3 unspecified; Z86.711 Personal history of pulmonary embolism; Z86.16 Personal history of COVID-19
CPT/HCPCS: 36415; 36416; 70450; 70496; 70498; 71045; 76770; 80048; 80053; 81001; 82575; 82962; 83605; 83735; 83880; 84156; 84300; 84484; 85025; 85610; 85651; 86140; 87040; 87077; 87086; 87186; 87486; 87581; 87633; 93005; 96365; 96367; 96372; 96374; 96375; 97110; 97116; 97161; 97530; 99285; J0360; J0696; J1200; J1644; J2405; J2543; J2765; J3475; J7030; J7040; Q9967

== ENCOUNTER 2022-11-20 11:31 | Emergency (ER) | payer MEDICARE, OTHER, SELFPAY ==
[2022-11-20 11:36] VITALS: BP 145/69; PULSE 93; RESP 18; TEMP 36.7; O2SAT 100
--- NOTE | 2022-11-20 12:17 | XRR_ITS ---
PROCEDURE INFORMATION: Exam: XR Abdomen Exam date and time: 11/20/2022 12:28 PM Age: 87 years old Clinical indication: Constipation TECHNIQUE: Imaging protocol: Radiologic exam of the abdomen. Views: Frontal supine view of the abdomen. 1 View. COMPARISON: CT abdomen pelvis con [id number] 09/13/2020 6:46 AM FINDINGS: Gastrointestinal tract: bowel gas pattern is nonspecific. Air filled large bowel including distal rectal gas. Scattered loops of air filled small bowel none of which are dilated. Large amount of stool throughout the large bowel. Bones/joints: Unremarkable. XR/XR KUB [id number] IMPRESSION: 1. Bowel gas pattern is nonspecific. Air filled large bowel including distal rectal gas. Scattered loops of air filled small bowel none of which are dilated. 2. Large amount of stool throughout the large bowel.
[2022-11-20 12:40] VITALS: BP 154/81; PULSE 78; RESP 16; O2SAT 99
[2022-11-20 12:59] LABS: Basophils % 0.6 %; Eosinophils % 0.2 %; Hematocrit 35.4 % (37.0-47.0); Hemoglobin 11.9 g/dL (11.5-15.3); Lymphocytes # 1.3 10^3/uL (0.8-4.8); Mean Corpuscular HGB Conc 33.6 g/dL (30.0-36.0); Mean Corpuscular Hemoglobin 32.7 pg (28.0-34.0); Mean Corpuscular Volume 97.3 fl (81-99); Mean Platelet Volume 9.8 fL (7.4-10.4); Monocytes # 0.3 10^3/uL (0.2-0.9); Monocytes % 6.2 %; Neutrophils # 3.61 10^3/uL (1.8-7.7); Neutrophils % 68.2 %; Nucleated Red Blood Cells % 0 %; Platelet Count 251 10^3/cmm (130-400); Red Blood Count 3.64 10^6/uL (4.1-5.3); Red Cell Distribution Width 12.1 % (12.1-15.1); White Blood Count 5.3 10^3/uL (4.0-10.0)
--- NOTE | 2022-11-20 13:01 | CT_ITS ---
WS: [id number] CT HEAD TECHNIQUE: Noncontrast CT of the head obtained from the skullbase to the vertex. CLINICAL INFORMATION: Headache and dizziness COMPARISON: CT November 04, 2022 DLP: 957.[address] scans at [facility] use at least one of these dose optimization techniques: automated e xposure control; mA and/or kV adjustment per patient size (includes targeted exams where dose is matc hed to clinical indication); or iterative reconstruction. FINDINGS: No evidence of intracranial hemorrhage or mass effect. Ventricular system and basal cisterns are brown nt. Moderate small vessel changes with moderate parenchymal volume loss. No extra-axial fluid collect ions. No evidence of mass or mass effect. Paranasal sinuses and mastoid air cells are well aerated. .Normal visualized soft tissues. CT/CT head wo con* [id number] IMPRESSION: 1. No evidence of intracranial hemorrhage or mass effect. 2. Moderate small vessel changes with moderate parenchymal volume loss. 3. Intracranial vascular calcification. 4. No acute intracranial findings.
--- NOTE | 2022-11-20 13:03 | W.ED.ABDPA2 ---
Documented by User: JORDANA Esquivel 11/20/22 20:32 HPI - Abdominal Pain General: Chief Complaint: Abdominal Pain Stated Complaint: headache,n/v,dizzy Time Seen by Provider: 11/20/22 12:17 History of Present Illness: Patient is a 87-year-old female comes to the ED with multiple complaints. She is complaining of abdominal discomfort, constipation, headache and dizziness. Patient states that her constipation started approximately 2 weeks ago and she has not had a good bowel movement in 2 weeks. She does not endorse having abdominal pain and describes it more as a discomfort all throughout her abdomen. She has tried taking [id number] stool softeners and they have not helped. Endorses having nausea but denies any episodes of emesis. She has had decreased appetite as well. Her headache and dizziness started 2 weeks ago as well. Denies any head trauma or fall to cause symptoms. She rates her headache a 10 out of 10. She describes the dizziness as a room spinning dizziness. Denies any vision changes, numbness tingling or weakness to 1 side of her face or body. Associated Symptoms: Reports nausea; Denies chills, constipation, diarrhea, dysuria, fever(s), hematochezia, hematuria and vomiting Review of Systems Const: Reports: change in appetite (Decreased); Denies: fever(s), chills or fatigue Eyes: Denies: change in vision or eye discomfort ENMT: Denies: throat pain, odynophagia, nasal discharge or nasal congestion Card: Denies: chest pain, palpitations, edema, swelling of feet/ankles, dyspnea on exertion or orthopnea Resp: Denies: dyspnea, productive cough or non-productive cough GI: Reports: abdominal pain (Generalized abdominal discomfort) and nausea; Denies: vomiting, diarrhea, constipation or hematochezia : Denies: flank pain, dysuria or hematuria Musc: Denies: neck pain, back pain or extremity swelling Skin/Breast: Denies: rash or new lesions Neuro: Denies: headache(s), numbness in extremities or weakness in extremities [facility] ED PFSH: Medical History (Updated 11/20/22 @ 18:54 by JORDANA Esquivel) KERI (acute kidney injury) COVID-19 Emphysema lung Headache Hypertension Hypertensive urgency Nondisplaced fracture of neck of left femur Pneumonia due to COVID-19 virus Pulmonary embolism Uncontrolled hypertension Urinary tract infection Surgical History History of repair of hip fracture Postoperative state Social History Smoking and tobacco status: never smoked Second hand smoke exposure: No Smoking risk assessment/counseling performed?: No Alcohol intake: never Desire information about alcohol rehabilitation?: No Counseling given: No Substance/Drug Use: never Desire information about substance/drug rehabilitation?: No Counseling given: No Adopted: No Caregiver/support person: No Lives independently: No Household members: spouse Housing: House Marital status: Number of children: 0 service: No Current occupational status: retired Pets and animals: No Do you think of yourself as: Straight/Heterosexual Current gender identity: Female Physical Exam Const: COMMON NORMALS: no acute distress, patient oriented x3 and alert HENMT: COMMON NORMALS: normocephalic HEAD & SCALP: normocephalic MOUTH: Normal oral and palatal mucosa present THROAT: posterior oropharynx normal and uvula midline Eye: COMMON NORMALS: EOMs intact bilaterally and conjunctivae normal GENERAL EYE: appearance normal, both eyes and all related structures CONJUNCTIVA: Yes conjunctivae normal Neck/C-Spine: COMMON NORMALS: supple GENERAL: Yes normal visual inspection Resp: COMMON NORMALS: normal respiratory effort, No retractions, No use of accessory muscles and clear to auscultation bilaterally AUSCULTATION: clear to auscultation bilaterally Cardio: COMMON NORMALS: regular rate, regular rhythm, S1 normal heart sound present, S2 normal heart sound present, No gallops present (Cardio), No clicks present (Cardio), No murmurs present (Cardio) and Peripheral pulses 2+ throughout RATE: regular rate RHYTHM: regular rhythm HEART SOUNDS: S1 normal heart sound present and S2 normal heart sound present PERIPHERAL PULSES: Peripheral pulses 2+ throughout GI: COMMON NORMALS: Normal to inspection, nondistended, normoactive bowel sounds present, Soft to palpation and no masses PALPATION: Yes Soft to palpation and Yes Tenderness to palpation present (GI) (Generalized tenderness throughout abdomen) : COMMON NORMALS: Yes no CVA tenderness BLADDER/KIDNEY EXAM: Yes no CVA tenderness Back/Pelvis: COMMON NORMALS: no CVA tenderness Extremity: COMMON NORMALS: normal to inspection Neuro: COMMON NORMALS: patient oriented x3 SENSORIUM/ORIENTATION: Yes alert GAIT: Yes Normal gait present Skin: GENERAL SKIN EXAM: dry skin Course Vital Signs: Vital signs: Vital Signs Temperature 98.1 F 11/20/22 11:36 Pulse Rate 83 11/20/22 19:44 Respiratory Rate 16 11/20/22 19:44 Blood Pressure 138/56 11/20/22 14:59 Pulse Oximetry 99 11/20/22 19:44 Oxygen Delivery Me thod Room Air 11/20/22 16:02 MDM - Abdominal Pain Medical Decision Making Patient is a 87-year-old female comes to the ED with multiple complaints. She is complaining of abdominal discomfort, constipation, headache and dizziness. Patient states that her constipation started approximately 2 weeks ago and she has not had a good bowel movement in 2 weeks. She does not endorse having abdominal pain and describes it more as a discomfort all throughout her abdomen. She has tried taking ausb-pjs-psacylp stool softeners and they have not helped. Endorses having nausea but denies any episodes of emesis. She has had decreased appetite as well. Her headache and dizziness started 2 weeks ago as well. Denies any head trauma or fall to cause symptoms. She rates her headache a 10 out of 10. She describes the dizziness as a room spinning dizziness. Denies any vision changes, numbness tingling or weakness to 1 side of her face or body. Vitals are stable. Patient appears nontoxic and is in no acute distress or pain. She is laying comfortably in exam bed. She has some mild generalized tenderness throughout her abdomen but no localized tenderness. Rest of exam is benign. CBC and CMP were unremarkable. Lipase was 168. KUB shows large amount of stool throughout bowel. Head CT shows no acute findings. CT of abdomen pelvis shows no acute intra-abdominal or pelvic findings. It did note a large amount of stool throughout the large bowel. Patient was given milk and molasses enema and she was able have a bowel movement here in the ED and her symptoms improved greatly. Her headache improved after she received IV Depacon. She was stable for discharge home and diagnosed with a headache and constipation. Told to follow-up with her PCP within the next 3 to 5 days for reevaluation. She was given strict return to ED precautions. She was sent home with a prescription for nausea med and MiraLAX. Patient understood and agreed with plan. Lab Data I reviewed the patient's lab results. 11/20/22 12:40 11/20/22 12:40 Labs/Radiology: Radiology Impressions KUB X-Ray 11/20/22 12:17 IMPRESSION: 1. Bowel gas pattern is nonspecific. Air filled large bowel including distal rectal gas. Scattered loops of air filled small bowel none of which are dilated. 2. Large amount of stool throughout the large bowel. Head CT 11/20/22 13:01 IMPRESSION: 1. No evidence of intracranial hemorrhage or mass effect. 2. Moderate small vessel changes with moderate parenchymal volume loss. 3. Intracranial vascular calcification. 4. No acute intracranial findings. Abdomen/Pelvis CT 11/20/22 14:01 IMPRESSION: 1. No acute intra-abdominal process. No inflammatory process. No obstruction. 2. No free fluid within the pelvis or within the dependent portions of the peritoneum. 3. Dilatation of the intrahepatic and extrahepatic biliary radicles with the common bile duct measuring approximately 16 mm. Dilatation of the pancreatic duct. Prior cholecystectomy. Correlate with LFTs. This was previously noted on CT dated 09-13-20. 4. Large amount of stool throughout the large bowel. 5. Moderate hiatal hernia. 6. Serpiginous structure in the left lower lobe. Possible vascular malformation. 7. No renal calcifications, hydronephrosis, or hydroureter. COMMENTS: Consistent with the [employer]'s Incidental Findings Committee white paper (J Am Shirley Radiol 2018): Any incidental renal lesion less than 1 cm or classified as too small to characterize, or any incidental cystic renal lesion characterized as simple-appearing, is likely benign. No follow-up imaging is recommended for these lesions per consensus recommendations based on imaging criteria. Laboratory Results WBC 5.3 10^3/uL (4.0-10.0) 11/20/22 12:40 RBC 3.64 10^6/uL (4.1-5.3) L 11/20/22 12:40 Hgb 11.9 g/dL (11.5-15.3) 11/20/22 12:40 Hct 35.4 % (37.0-47.0) L 11/20/22 12:40 MCV 97.3 fl (81-99) 11/20/22 12:40 MCH 32.7 pg (28.0-34.0) 11/20/22 12:40 MCHC 33.6 g/dL (30.0-36.0) 11/20/22 12:40 RDW 12.1 % (12.1-15.1) 11/20/22 12:40 Plt Count 251 10^3/cmm (130-400) 11/20/22 12:40 MPV 9.8 fL (7.4-10.4) 11/20/22 12:40 Neut % (Auto) 68.2 % 11/20/22 12:40 Lymph % (Auto) 24.0 % 11/20/22 12:40 [place] % (Auto) 6.2 % 11/20/22 12:40 Eos % (Auto) 0.2 % 11/20/22 12:40 Baso % (Auto) 0.6 % 11/20/22 12:40 Neut # (Auto) 3.61 10^3/uL (1.8-7.7) 11/20/22 12:40 Lymph # (Auto) 1.3 10^3/uL (0.8-4.8) 11/20/22 12:40 [place] # (Auto) 0.3 10^3/uL (0.2-0.9) 11/20/22 12:40 Eos # (Auto) 0.0 10^3/uL (0.0-0.8) 11/20/22 12:40 Baso # (Auto) 0.0 10^3/uL (0.0-0.1) 11/20/22 12:40 Nucleated RBC % (auto) 0 % 11/20/22 12:40 Nucleated RBCs # 0.0 /100WBC 11/20/22 12:40 Sodium 136 mmol/L (136-145) 11/20/22 12:40 Potassium 4.8 mmol/L (3.5-5.1) 11/20/22 12:40 Chloride 101 mmol/L (98-107) 11/20/22 12:40 Carbon Dioxide 20 mmol/L (22-29) L 11/20/22 12:40 Anion Gap 19.8 (5-19) H 11/20/22 12:40 BUN 33 mg/dL (8-23) H 11/20/22 12:40 Creatinine 1.6 mg/dL (0.5-0.9) H 11/20/22 12:40 GFR Calculation Not Reportable 11/20/22 12:40 Glucose 114 mg/dL (65-115) 11/20/22 12:40 Calculated Osmolality 290 mOsm/kg (285-295) 11/20/22 12:40 Calcium 9.3 mg/dL (8.5-10.5) 11/20/22 12:40 Total Bilirubin 0.5 mg/dL (0.15-1.2) 11/20/22 12:40 AST 33 U/L (0-32) H 11/20/22 12:40 ALT 21 U/L (0-33) 11/20/22 12:40 Alkaline Phosphatase 68 U/L (35-105) 11/20/22 12:40 Total Protein 7.6 g/dL (6.6-8.7) 11/20/22 12:40 Albumin 4.5 g/dL (3.5-5.2) 11/20/22 12:40 Globulin 3.1 g/dL (1.3-4.6) 11/20/22 12:40 Lipase 168 U/L (13-60) H 11/20/22 12:40 Urine Color Yellow (Yellow) 11/20/22 13:22 Urine Appearance Hazy (CLEAR) A 11/20/22 13:22 Urine pH 5 (5-7) 11/20/22 13:22 Ur Specific [place] 1.020 (1.005-1.030) 11/20/22 13:22 Urine Protein 3+ (Negative) H 11/20/22 13:22 Urine Glucose (UA) Norm (Normal) 11/20/22 13:22 Urine Ketones Negative (Negative) 11/20/22 13:22 Urine Blood Neg (Negative) 11/20/22 13:22 Urine Nitrate Negative (Negative) 11/20/22 13:22 Urine Bilirubin Neg (Negative) 11/20/22 13:22 Urine Urobilinogen Neg mg/dL (Negative) 11/20/22 13:22 Ur Leukocyte Esterase 2+ (Negative) H 11/20/22 13:22 Urine RBC 0-4 /hpf (0-2) H 11/20/22 13:22 Urine WBC 15-25 /hpf (0-5) H 05/11/23 13:22 Ur Squamous Epith Cells 5-10 /hpf (0-5) H 11/20/22 13:22 Amorphous Sediment Not Reportable 11/20/22 13:22 Urine Bacteria Trace /hpf (NONE) 11/20/22 13:22 Discharge Plan Discharge Patient Disposition: Home Clinical Impression: Constipation Qualifiers: Constipation type: unspecified constipation type Qualified Code(s): K59.00 - Constipation, unspecified Headache Qualifiers: Headache type: unspecified Headache chronicity pattern: acute headache Intractability: not intractable Qualified Code(s): R51.9 - Headache, unspecified Condition: Stable Prescriptions: New Miralax 17 gram/dose powder 17 g PO DAILY 3 Days Qty: 119 0RF Rx Instructions: Take 17 g dose p.o. daily for next 3 days then as needed constipation ondansetron 4 mg tablet,disintegrating 4 mg PO Q8H PRN (Reason: nausea and vomiting) Qty: 20 0RF No Action latanoprost 0.005 % drops 1 drp ophthalmic (eye) QPM Qty: 7.5 5RF Rx Instructions: BOTH EYES timolol maleate 0.5 % drops 1 drp ophthalmic (eye) BID Qty: 15 5RF Rx Instructions: BOTH EYES meloxicam 7.5 mg tablet 7.5 mg PO DAILY Qty: 30 0RF coenzyme Q10 [CoQ-10] 100 mg Capsule 100 mg PO DAILY hydralazine 50 mg tablet 50 mg PO TID Qty: 90 2RF amlodipine 10 mg tablet 10 mg PO DAILY 30 Days Qty: 30 3RF meclizine 25 mg tablet 25 mg PO BID PRN (Reason: dizziness) 14 Days Qty: 28 0RF Discharge Orders: Discharge ED (Routine); Ordered 11/20/22 Ordered By: Richie Pate Referrals: Dena Bro, ORDER DESK CALLER-C [Primary Care Provider] - Discharge Diet: Advance as tolerated and Clear Liquid Discharge Activity: Increase activity as tolerated Patient Instructions: Constipation (DC), Acute Headache (DC) Activity Restrictions/Additional Instructions: Follow-up with medical provider as directed in the next 3 to 5 days for reevaluation. Take medications as prescribed. Clear liquid diet for the next 12 hours and slowly advance diet as tolerated. Drink plenty of fluids and stay hydrated. Return to the ER or your medical provider if condition worsens. Please read and understand discharge instructions. Thank you for choosing [facility] for your healthcare needs today. Please realize this is an emergency room and that we are providing you with a medical screening exam and this may not be complete and all inclusive of all the testing and or work up that you may need to determine your ailment or severity of your illness. It is very important that you follow up as instructed or that you return to the Emergency Department should you have concerns or if your condition changes or worsens in any way. Coding Level of Care Code ED Social Work Specialist for [facility] Fwd Documented by User: Monster Goyal, 11/21/22 06:03 HPI - Abdominal Pain General: Chief Complaint: Abdominal Pain Stated Complaint: headache,n/v,dizzy Time Seen by Provider: 11/20/22 12:17 [facility] ED PFSH: Medical History (Updated 11/20/22 @ 18:54 by JORDANA Esquivel) KERI (acute kidney injury) COVID-19 Emphysema lung Headache Hypertension Hypertensive urgency Nondisplaced fracture of neck of left femur Pneumonia due to COVID-19 virus Pulmonary embolism Uncontrolled hypertension Urinary tract infection Surgical History History of repair of hip fracture Postoperative state Social History Smoking and tobacco status: never smoked Second hand smoke exposure: No Smoking risk assessment/counseling performed?: No Alcohol intake: never Desire information about alcohol rehabilitation?: No Counseling given: No Substance/Drug Use: never Desire information about substance/drug rehabilitation?: No Counseling given: No Adopted: No Caregiver/support person: No Lives independently: No Household members: spouse Housing: House Marital status: Number of children: 0 service: No Current occupational status: retired Pets and animals: No Do you think of yourself as: Straight/Heterosexual Current gender identity: Female Course Vital Signs: Vital signs: Vital Signs Temperature 98.1 F 11/20/22 11:36 Pulse Rate 83 11/20/22 19:44 Respiratory Rate 16 11/20/22 19:44 Blood Pressure 138/56 11/20/22 14:59 Pulse Oximetry 99 11/20/22 19:44 Oxygen Delivery Me thod Room Air 11/20/22 16:02 MDM - Abdominal Pain Medical Decision Making Patient is a 87-year-old female comes to the ED with multiple complaints. She is complaining of abdominal discomfort, constipation, headache and dizziness. Patient states that her constipation started approximately 2 weeks ago and she has not had a good bowel movement in 2 weeks. She does not endorse having abdominal pain and describes it more as a discomfort all throughout her abdomen. She has tried taking pktv-xms-rqiixqo stool softeners and they have not helped. Endorses having nausea but denies any episodes of emesis. She has had decreased appetite as well. Her headache and dizziness started 2 weeks ago as well. Denies any head trauma or fall to cause symptoms. She rates her headache a 10 out of 10. She describes the dizziness as a room spinning dizziness. Denies any vision changes, numbness tingling or weakness to 1 side of her face or body. Vitals are stable. Patient appears nontoxic and is in no acute distress or pain. She is laying comfortably in exam bed. She has some mild generalized tenderness throughout her abdomen but no localized tenderness. Rest of exam is benign. CBC and CMP were unremarkable. Lipase was 168. KUB shows large amount of stool throughout bowel. Head CT shows no acute findings. CT of abdomen pelvis shows no acute intra-abdominal or pelvic findings. It did note a large amount of stool throughout the large bowel. Patient was given milk and molasses enema and she was able have a bowel movement here in the ED and her symptoms improved greatly. Her headache improved after she received IV Depacon. She was stable for discharge home and diagnosed with a headache and constipation. Told to follow-up with her PCP within the next 3 to 5 days for reevaluation. She was given strict return to ED precautions. She was sent home with a prescription for nausea med and MiraLAX. Patient understood and agreed with plan. Chart reviewed and patient discussed with midlevel. Agree with assessment and plan. Lab Data 11/20/22 12:40 11/20/22 12:40 Labs/Radiology: Radiology Impressions KUB X-Ray 11/20/22 12:17 IMPRESSION: 1. Bowel gas pattern is nonspecific. Air filled large bowel including distal rectal gas. Scattered loops of air filled small bowel none of which are dilated. 2. Large amount of stool throughout the large bowel. Head CT 11/20/22 13:01 IMPRESSION: 1. No evidence of intracranial hemorrhage or mass effect. 2. Moderate small vessel changes with moderate parenchymal volume loss. 3. Intracranial vascular calcification. 4. No acute intracranial findings. Abdomen/Pelvis CT 11/20/22 14:01 IMPRESSION: 1. No acute intra-abdominal process. No inflammatory process. No obstruction. 2. No free fluid within the pelvis or within the dependent portions of the peritoneum. 3. Dilatation of the intrahepatic and extrahepatic biliary radicles with the common bile duct measuring approximately 16 mm. Dilatation of the pancreatic duct. Prior cholecystectomy. Correlate with LFTs. This was previously noted on CT dated 09-13-20. 4. Large amount of stool throughout the large bowel. 5. Moderate hiatal hernia. 6. Serpiginous structure in the left lower lobe. Possible vascular malformation. 7. No renal calcifications, hydronephrosis, or hydroureter. COMMENTS: Consistent with the [employer]'s Incidental Findings Committee white paper (J Am Shirley Radiol 2018): Any incidental renal lesion less than 1 cm or classified as too small to characterize, or any incidental cystic renal lesion characterized as simple-appearing, is likely benign. No follow-up imaging is recommended for these lesions per consensus recommendations based on imaging criteria. Laboratory Results WBC 5.3 10^3/uL (4.0-10.0) 11/20/22 12:40 RBC 3.64 10^6/uL (4.1-5.3) L 11/20/22 12:40 Hgb 11.9 g/dL (11.5-15.3) 11/20/22 12:40 Hct 35.4 % (37.0-47.0) L 11/20/22 12:40 MCV 97.3 fl (81-99) 11/20/22 12:40 MCH 32.7 pg (28.0-34.0) 11/20/22 12:40 MCHC 33.6 g/dL (30.0-36.0) 11/20/22 12:40 RDW 12.1 % (12.1-15.1) 11/20/22 12:40 Plt Count 251 10^3/cmm (130-400) 11/20/22 12:40 MPV 9.8 fL (7.4-10.4) 11/20/22 12:40 Neut % (Auto) 68.2 % 11/20/22 12:40 Lymph % (Auto) 24.0 % 11/20/22 12:40 [place] % (Auto) 6.2 % 11/20/22 12:40 Eos % (Auto) 0.2 % 11/20/22 12:40 Baso % (Auto) 0.6 % 11/20/22 12:40 Neut # (Auto) 3.61 10^3/uL (1.8-7.7) 11/20/22 12:40 Lymph # (Auto) 1.3 10^3/uL (0.8-4.8) 11/20/22 12:40 [place] # (Auto) 0.3 10^3/uL (0.2-0.9) 11/20/22 12:40 Eos # (Auto) 0.0 10^3/uL (0.0-0.8) 11/20/22 12:40 Baso # (Auto) 0.0 10^3/uL (0.0-0.1) 11/20/22 12:40 Nucleated RBC % (auto) 0 % 11/20/22 12:40 Nucleated RBCs # 0.0 /100WBC 11/20/22 12:40 Sodium 136 mmol/L (136-145) 11/20/22 12:40 Potassium 4.8 mmol/L (3.5-5.1) 11/20/22 12:40 Chloride 101 mmol/L (98-107) 11/20/22 12:40 Carbon Dioxide 20 mmol/L (22-29) L 11/20/22 12:40 Anion Gap 19.8 (5-19) H 11/20/22 12:40 BUN 33 mg/dL (8-23) H 11/20/22 12:40 Creatinine 1.6 mg/dL (0.5-0.9) H 11/20/22 12:40 GFR Calculation Not Reportable 11/20/22 12:40 Glucose 114 mg/dL (65-115) 11/20/22 12:40 Calculated Osmolality 290 mOsm/kg (285-295) 11/20/22 12:40 Calcium 9.3 mg/dL (8.5-10.5) 11/20/22 12:40 Total Bilirubin 0.5 mg/dL (0.15-1.2) 11/20/22 12:40 AST 33 U/L (0-32) H 11/20/22 12:40 ALT 21 U/L (0-33) 11/20/22 12:40 Alkaline Phosphatase 68 U/L (35-105) 11/20/22 12:40 Total Protein 7.6 g/dL (6.6-8.7) 11/20/22 12:40 Albumin 4.5 g/dL (3.5-5.2) 11/20/22 12:40 Globulin 3.1 g/dL (1.3-4.6) 11/20/22 12:40 Lipase 168 U/L (13-60) H 11/20/22 12:40 Urine Color Yellow (Yellow) 11/20/22 13:22 Urine Appearance Hazy (CLEAR) A 11/20/22 13:22 Urine pH 5 (5-7) 11/20/22 13:22 Ur Specific [place] 1.020 (1.005-1.030) 11/20/22 13:22 Urine Protein 3+ (Negative) H 11/20/22 13:22 Urine Glucose (UA) Norm (Normal) 11/20/22 13:22 Urine Ketones Negative (Negative) 11/20/22 13:22 Urine Blood Neg (Negative) 11/20/22 13:22 Urine Nitrate Negative (Negative) 11/20/22 13:22 Urine Bilirubin Neg (Negative) 11/20/22 13:22 Urine Urobilinogen Neg mg/dL (Negative) 11/20/22 13:22 Ur Leukocyte Esterase 2+ (Negative) H 11/20/22 13:22 Urine RBC 0-4 /hpf (0-2) H 11/20/22 13:22 Urine WBC 15-25 /hpf (0-5) H 11/20/22 13:22 Ur Squamous Epith Cells 5-10 /hpf (0-5) H 11/20/22 13:22 Amorphous Sediment Not Reportable 11/20/22 13:22 Urine Bacteria Trace /hpf (NONE) 11/20/22 13:22 Discharge Plan Discharge Patient Disposition: Home Clinical Impression: Constipation Qualifiers: Constipation type: unspecified constipation type Qualified Code(s): K59.00 - Constipation, unspecified Headache Qualifiers: Headache type: unspecified Headache chronicity pattern: acute headache Intractability: not intractable Qualified Code(s): R51.9 - Headache, unspecified Condition: Stable Prescriptions: New Miralax 17 gram/dose powder 17 g PO DAILY 3 Days Qty: 119 0RF Rx Instructions: Take 17 g dose p.o. daily for next 3 days then as needed constipation ondansetron 4 mg tablet,disintegrating 4 mg PO Q8H PRN (Reason: nausea and vomiting) Qty: 20 0RF No Action latanoprost 0.005 % drops 1 drp ophthalmic (eye) QPM Qty: 7.5 5RF Rx Instructions: BOTH EYES timolol maleate 0.5 % drops 1 drp ophthalmic (eye) BID Qty: 15 5RF Rx Instructions: BOTH EYES meloxicam 7.5 mg tablet 7.5 mg PO DAILY Qty: 30 0RF coenzyme Q10 [CoQ-10] 100 mg Capsule 100 mg PO DAILY hydralazine 50 mg tablet 50 mg PO TID Qty: 90 2RF amlodipine 10 mg tablet 10 mg PO DAILY 30 Days Qty: 30 3RF meclizine 25 mg tablet 25 mg PO BID PRN (Reason: dizziness) 14 Days Qty: 28 0RF Discharge Orders: Discharge ED (Routine); Ordered 11/20/22 Ordered By: Richie Pate Referrals: Dena Bro, ORDER DESK CALLER-C [Primary Care Provider] - Discharge Diet: Advance as tolerated and Clear Liquid Discharge Activity: Increase activity as tolerated Patient Instructions: Constipation (DC), Acute Headache (DC) Activity Restrictions/Additional Instructions: Follow-up with medical provider as directed in the next 3 to 5 days for reevaluation. Take medications as prescribed. Clear liquid diet for the next 12 hours and slowly advance diet as tolerated. Drink plenty of fluids and stay hydrated. Return to the ER or your medical provider if condition worsens. Please read and understand discharge instructions. Thank you for choosing [facility] for your healthcare needs today. Please realize this is an emergency room and that we are providing you with a medical screening exam and this may not be complete and all inclusive of all the testing and or work up that you may need to determine your ailment or severity of your illness. It is very important that you follow up as instructed or that you return to the Emergency Department should you have concerns or if your condition changes or worsens in any way. Coding Level of Care Code ED Social Work Specialist for Michel Hernandez
[2022-11-20] MEDS: ondansetron 2 mg/ML SDV 2 mL 4 MG IVP (13:20)
[2022-11-20] MEDS: morphine 4 mg/mL SDV 1 mL IVP (13:20)
[2022-11-20 13:22] VITALS: PULSE 78; RESP 16; O2SAT 99
[2022-11-20 13:29] LABS: Alanine Aminotransferase 21 U/L (0-33); Albumin Level 4.5 g/dL (3.5-5.2); Alkaline Phosphatase 68 U/L (35-105); Anion Gap 19.8 (5-19); Aspartate Amino Transferase 33 U/L (0-32); Blood Urea Nitrogen 33 mg/dL (8-23); Calcium 9.3 mg/dL (8.5-10.5); Carbon Dioxide 20 mmol/L (22-29); Chloride 101 mmol/L (98-107); Globulin 3.1 g/dL (1.3-4.6); Glucose 114 mg/dL (65-115); Lipase 168 U/L (13-60); Osmolality Calculated 290 mOsm/kg (285-295); Potassium 4.8 mmol/L (3.5-5.1); Sodium 136 mmol/L (136-145); Total Bilirubin 0.5 mg/dL (0.15-1.2); Total Protein 7.6 g/dL (6.6-8.7)
--- NOTE | 2022-11-20 14:01 | CTR_ITS ---
PROCEDURE INFORMATION: Exam: CT Abdomen And Pelvis Without Contrast Exam date and time: 11/20/2022 2:21 PM Age: 87 years old Clinical indication: Constipation; Abdominal pain; Generalized; Prior surgery; Surgery date: 6+ months; Surgery type: Hip; Patient HX: She has not had a bm for 3 weeks, she has a headache and dizzy, she feels like she needs to vomit but cant. ; Additional info: Abdominal pain, nausea, constipation TECHNIQUE: Imaging protocol: Computed tomography of the abdomen and pelvis without contrast. Radiation optimization: All CT scans at this facility use at least one of these dose optimization techniques: automated exposure control; mA and/or kV adjustment per patient size (includes targeted exams where dose is matched to clinical indication); or iterative reconstruction. REPORTING DATA: Count of CT and Cardiac NM exams in prior 12 months: This patient has received 3 known CTs and 0 known cardiac nuclear medicine studies in the 12 months prior to the current study. COMPARISON: CT abdomen pelvis wo con [id number] 09/13/2020 6:46 AM RADIATION DOSE METRICS: Total DLP (mGy-cm): 310.42 FINDINGS: Lungs: Serpiginous structure in the left lower lobe. Possible vascular malformation. Diaphragm: Moderate hiatal hernia. Liver: Dilatation of the intrahepatic and extrahepatic biliary radicles with the common bile duct measuring approximately 16 mm. Dilatation of the pancreatic duct. Prior cholecystectomy. Correlate with LFTs. Gallbladder and bile ducts: See Liver finding. Pancreas: See Liver finding. Spleen: Normal. No splenomegaly. Adrenal glands: Normal. No mass. Kidneys and ureters: Small cortical cyst right kidney subcentimeter in size. No renal calcifications, hydronephrosis, or hydroureter. Stomach and bowel: Large amount of stool throughout the large bowel. Appendix: No evidence of appendicitis. Intraperitoneal space: No acute intra-abdominal process. No inflammatory process. No obstruction. No free fluid within the pelvis or within the dependent portions of the peritoneum. Vasculature: Calcification of the aorta. Lymph nodes: Unremarkable. No enlarged lymph nodes. Urinary bladder: Unremarkable as visualized. Reproductive: Unremarkable as visualized. Bones/joints: Prior surgical fixation right hip . Compression fracture anterior and middle columns of L1. Progressive from 3-4-21 Soft tissues: Unremarkable. CT/CT abdomen pelvis wo con [id number] IMPRESSION: 1. No acute intra-abdominal process. No inflammatory process. No obstruction. 2. No free fluid within the pelvis or within the dependent portions of the peritoneum. 3. Dilatation of the intrahepatic and extrahepatic biliary radicles with the common bile duct measuring approximately 16 mm. Dilatation of the pancreatic duct. Prior cholecystectomy. Correlate with LFTs. This was previously noted on CT dated 09-13-20. 4. Large amount of stool throughout the large bowel. 5. Moderate hiatal hernia. 6. Serpiginous structure in the left lower lobe. Possible vascular malformation. 7. No renal calcifications, hydronephrosis, or hydroureter. COMMENTS: Consistent with the [employer]'s Incidental Findings Committee white paper (J Am Shirley Radiol 2018): Any incidental renal lesion less than 1 cm or classified as too small to characterize, or any incidental cystic renal lesion characterized as simple-appearing, is likely benign. No follow-up imaging is recommended for these lesions per consensus recommendations based on imaging criteria.
[2022-11-20] MEDS: sodium chloride 0.9% 1,000 ML 999 ML IV (14:10)
[2022-11-20 14:27] LABS: Add Urine Culture? Yes; Add Urine Microscopic? YES; Bacteria Urine TRACE /hpf; Bilirubin Urine Neg (Negative); Blood Urine Neg (Negative); Glucose Urine UA Norm (Normal); Ketones Urine Negative (Negative); Leukocyte Esterase Urine 2+ (Negative); Nitrate Urine Negative (Negative); Protein Urine 3+ (Negative); RBC Urine 0-4 /hpf (0-2); Urine Appearance Hazy (CLEAR); Urine Color Yellow (Yellow); Urobilinogen Urine Neg (Negative); WBC Urine 15-25 /hpf (0-5); pH Urine 5 (5-7)
[2022-11-20 14:59] VITALS: BP 138/56; PULSE 75; RESP 18; O2SAT 96
[2022-11-20 16:02] VITALS: PULSE 82; RESP 16; O2SAT 96
[2022-11-20] MEDS: acetaminophen 1,000 MG/100 ML PIGGYBACK 400 MG IV (17:07)
[2022-11-20] MEDS: valproic acid inj 500 MG in sodium chloride 0.9% 50 ML 55 MG IV (18:36)
[2022-11-20 19:44] VITALS: PULSE 83; RESP 16; O2SAT 99
== END 2022-11-20 19:45 | disposition home or self-care (01) ==
PROVIDERS: Emergency Provider Physician Assistant; PCP Nurse Practitioner
DX: K59.00 Constipation, unspecified (principal); R51.9 Headache, unspecified; J43.9 Emphysema, unspecified; I10 Essential (primary) hypertension; Z86.711 Personal history of pulmonary embolism
CPT/HCPCS: 36415; 70450; 74018; 74176; 80053; 81001; 83690; 85025; 87086; 96365; 96367; 96375; 99285; J0131; J2270; J2405; J3490; J7030

== ENCOUNTER 2022-11-21 12:44 | Emergency (ER) | payer MEDICARE, OTHER, SELFPAY ==
--- NOTE | 2022-11-21 12:48 | ED_ITS ---
HPI - Abdominal Pain General: Chief Complaint: Altered Mental Status Stated Complaint: AMS /Abdominal pain Time Seen by Provider: 11/21/22 12:44 Source: patient Mode of arrival: ambulatory History of Present Illness: 87-year-old female presents emergency room complaining abdominal pain evidently she was found slumped in a chair at [facility] she is arousable but confused she is not a very good historian she is near [place] positive review of systems at times. Any pressure on think she will say no. She was seen yesterday CT of the abdomen and head were negative she had a large amount of stool she was given an enema had good relief. She is complaining of generalized vague abdominal pain no hematochezia melena or fever. MD elicited complaint: abdominal pain Onset (ago): hour(s) Pain Consistency: constant Location: Diffuse Severity: moderate Quality: cramping Exacerbating factors: nothing Relieving factors: nothing Associated Symptoms: Reports nausea; Denies anorexia, belching, bloating, change in bowel habits, change in stool character, chills, coffee ground emesis, constipation, GI cramping, diarrhea, dyspepsia, dysuria, excessive flatus, fever(s), heartburn, hematochezia, hematuria, hematemesis, fecal incontinence, loose stools, melena, poor appetite, syncope and vomiting Review of Systems Const: Reports: fatigue and malaise; Denies: fever(s) or chills ENMT: Denies: throat pain, ear or mastoid pain, nasal discharge or nasal congestion Card: Denies: chest pain, palpitations, irregular heart rhythm, edema, swelling of feet/ankles or syncope Resp: Denies: dyspnea, productive cough or non-productive cough GI: Reports: abdominal pain and nausea; Denies: vomiting, hematemesis, coffee ground emesis, heartburn, diarrhea, constipation, bloating, GI cramping, belching, excessive flatus, fecal incontinence, change in bowel habits, change in stool character, hematochezia or melena : Denies: dysuria or hematuria Skin/Breast: Denies: rash or pruritus PFSH ED 2 PFSH: Medical History KERI (acute kidney injury) COVID-19 Emphysema lung Headache Hypertension Hypertensive urgency Nondisplaced fracture of neck of left femur Pneumonia due to COVID-19 virus Pulmonary embolism Uncontrolled hypertension Urinary tract infection Surgical History History of repair of hip fracture Postoperative state Social History Smoking and tobacco status: never smoked Second hand smoke exposure: No Smoking risk assessment/counseling performed?: No Alcohol intake: never Desire information about alcohol rehabilitation?: No Counseling given: No Substance/Drug Use: never Desire information about substance/drug rehabilitation?: No Counseling given: No Adopted: No Caregiver/support person: No Lives independently: No Household members: spouse Housing: House Marital status: Number of children: 0 service: No Current occupational status: retired Pets and animals: No Do you think of yourself as: Straight/Heterosexual Current gender identity: Female Physical Exam Const: GENERAL APPEARANCE: cooperative and comfortable ORIENTATION/CONSCIOUSNESS: Yes awake, Yes oriented to person, Yes oriented to place and Yes oriented to time HENMT: COMMON NORMALS: normocephalic, atraumatic and hearing grossly normal bilaterally HEAD & SCALP: normocephalic and atraumatic Resp: COMMON NORMALS: normal respiratory effort, No retractions, No use of accessory muscles and clear to auscultation bilaterally AUSCULTATION: clear to auscultation bilaterally Cardio: COMMON NORMALS: regular rate, regular rhythm and No murmurs present (Cardio) RATE: regular rate RHYTHM: regular rhythm GI: COMMON NORMALS: No hepatosplenomegaly present AUSCULTATION: Yes normoactive bowel sounds PALPATION: Yes Tenderness to palpation present (GI) (Diffuse nonspecific tenderness), No Guarding due to palpation present (GI) and Yes No hepatosplenomegaly present Extremity: COMMON NORMALS: normal to inspection, capillary refill normal, no clubbing, cyanosis or edema, no calf tenderness and no pedal edema Neuro: SENSORIUM/ORIENTATION: Yes oriented to person, Yes oriented to place and Yes oriented to time Skin: COMMON NORMALS: no rashes or lesions noted GENERAL SKIN EXAM: no rashes or lesions noted Course Vital Signs: Vital signs: Vital Signs Pulse Rate 67 11/21/22 15:04 Respiratory Rate 20 H 11/21/22 15:04 Blood Pressure 141/64 11/21/22 15:04 Pulse Oximetry 98 11/21/22 15:04 MDM - Abdominal Pain Medical Decision Making ModerateLabs and imaging reviewed. 2. Present abdominal exam on repeat exam is unremarkable. Discussed findings with patient we will discharge him home they are not usual MiraLAX given yesterday gave lactulose to use in place of MiraLAX follow-up as needed return if is further problems. Symptoms resolved at this time, repeat abdominal exam benign Medical Records I reviewed the patient's medical records. Lab Data I reviewed the patient's lab results. 11/21/22 12:55 11/21/22 13:25 Labs/Radiology: Radiology Impressions KUB X-Ray 11/21/22 12:56 Impression: Negative KUB. Laboratory Results WBC 6.1 10^3/uL (4.0-10.0) 11/21/22 12:55 RBC 3.44 10^6/uL (4.1-5.3) L 11/21/22 12:55 Hgb 11.3 g/dL (11.5-15.3) L 11/21/22 12:55 Hct 35.7 % (37.0-47.0) L 11/21/22 12:55 MCV 103.8 fl (81-99) H D 11/21/22 12:55 MCH 32.8 pg (28.0-34.0) 11/21/22 12:55 MCHC 31.7 g/dL (30.0-36.0) D 11/21/22 12:55 RDW 12.6 % (12.1-15.1) 11/21/22 12:55 Plt Count 255 10^3/cmm (130-400) 11/21/22 12:55 MPV 10.7 fL (7.4-10.4) H 11/21/22 12:55 Neut % (Auto) 63.7 % 11/21/22 12:55 Lymph % (Auto) 27.9 % 11/21/22 12:55 [place] % (Auto) 6.6 % 11/21/22 12:55 Eos % (Auto) 0.5 % 11/21/22 12:55 Baso % (Auto) 0.8 % 11/21/22 12:55 Neut # (Auto) 3.88 10^3/uL (1.8-7.7) 11/21/22 12:55 Lymph # (Auto) 1.7 10^3/uL (0.8-4.8) 11/21/22 12:55 [place] # (Auto) 0.4 10^3/uL (0.2-0.9) 11/21/22 12:55 Eos # (Auto) 0.0 10^3/uL (0.0-0.8) 11/21/22 12:55 Baso # (Auto) 0.1 10^3/uL (0.0-0.1) 11/21/22 12:55 Nucleated RBC % (auto) 0 % 11/21/22 12: Nucleated RBCs # 0.0 /100WBC 11/21/22 12:55 Sodium 137 mmol/L (136-145) 11/21/22 13:25 Potassium 4.6 mmol/L (3.5-5.1) 11/21/22 13:25 Chloride 104 mmol/L (98-107) 11/21/22 13:25 Carbon Dioxide 19 mmol/L (22-29) L 11/21/22 13:25 Anion Gap 18.6 (5-19) 11/21/22 13:25 BUN 29 mg/dL (8-23) H 11/21/22 13:25 Creatinine 1.6 mg/dL (0.5-0.9) H 11/21/22 13:25 GFR Calculation Not Reportable 11/21/22 13:25 Glucose 238 mg/dL (65-115) H 11/21/22 13:25 Calculated Osmolality 298 mOsm/kg (285-295) H 11/21/22 13:25 Lactic Acid 2.2 mmol/L (0.5-2.2) 11/21/22 13:10 Calcium 8.1 mg/dL (8.5-10.5) L 11/21/22 13:25 Total Bilirubin 0.4 mg/dL (0.15-1.2) 11/21/22 13:25 AST 32 U/L (0-32) 11/21/22 13:25 ALT 21 U/L (0-33) 11/21/22 13:25 Alkaline Phosphatase 60 U/L (35-105) 11/21/22 13:25 Total Protein 6.1 g/dL (6.6-8.7) L 11/21/22 13:25 Albumin 3.8 g/dL (3.5-5.2) 11/21/22 13:25 Globulin 2.3 g/dL (1.3-4.6) 11/21/22 13:25 Lipase 140 U/L (13-60) H 11/21/22 13:25 Urine Color Yellow (Yellow) 11/21/22 13:22 Urine Appearance Clear (CLEAR) 11/21/22 13:22 Urine pH 5 (5-7) 11/21/22 13:22 Ur Specific [place] 1.020 (1.005-1.030) 11/21/22 13:22 Urine Protein 3+ (Negative) H 11/21/22 13:22 Urine Glucose (UA) Trace (Normal) H 11/21/22 13:22 Urine Ketones 1+ (Negative) H 11/21/22 13:22 Urine Blood Neg (Negative) 11/21/22 13:22 Urine Nitrate Negative (Negative) 11/21/22 13:22 Urine Bilirubin Neg (Negative) 11/21/22 13:22 Urine Urobilinogen Norm mg/dL (Negative) 11/21/22 13:22 Ur Leukocyte Esterase Negative (Negative) 11/21/22 13:22 Urine RBC 0-4 /hpf (0-2) H 11/21/22 13:22 Urine WBC 0-4 /hpf (0-5) H 11/21/22 13:22 Ur Squamous Epith Cells 5-10 /hpf (0-5) H 11/21/22 13:22 Amorphous Sediment 1+ /hpf 11/21/22 13:22 Urine Bacteria Not Reportable 11/21/22 13:22 Hyaline Casts Rare /lpf 11/21/22 13:22 Fine Granular Casts Rare /lpf 11/21/22 13:22 Discharge Plan Discharge Patient Disposition: Home Clinical Impression: Constipation Condition: Stable Prescriptions: New lactulose 20 gram/30 mL solution 30 ml PO Q2H 1 Days Qty: 360 0RF Rx Instructions: until desired laxative effect No Action latanoprost 0.005 % drops 1 drp ophthalmic (eye) QPM Qty: 7.5 5RF Rx Instructions: BOTH EYES timolol maleate 0.5 % drops 1 drp ophthalmic (eye) BID Qty: 15 5RF Rx Instructions: BOTH EYES meloxicam 7.5 mg tablet 7.5 mg PO DAILY Qty: 30 0RF coenzyme Q10 [CoQ-10] 100 mg Capsule 100 mg PO DAILY hydralazine 50 mg tablet 50 mg PO TID Qty: 90 2RF amlodipine 10 mg tablet 10 mg PO DAILY 30 Days Qty: 30 3RF meclizine 25 mg tablet 25 mg PO BID PRN (Reason: dizziness) 14 Days Qty: 28 0RF polyethylene glycol 3350 [Miralax] 17 gram/dose powder 17 g PO DAILY 3 Days Qty: 119 0RF Rx Instructions: Take 17 g dose p.o. daily for next 3 days then as needed constipation ondansetron 4 mg tablet,disintegrating 4 mg PO Q8H PRN (Reason: nausea and vomiting) Qty: 20 0RF Discharge Orders: Discharge ED (Routine); Ordered 11/21/22 Ordered By: Monster Goyal Referrals: Dena Bro, [facility] [Primary Care Provider] - Discharge Diet: Usual diet Discharge Activity: Increase activity as tolerated Patient Instructions: Constipation (ED), Opioid Safety, Pain Management Activity Restrictions/Additional Instructions: You are seen today for abdominal discomfort. He is still moderate amount of stool in the colon recommend use lactulose or MiraLAX to relieve those symptoms. He did have some dilation of your biliary ducts however this has been chronic and your liver functions are normal your pancreas enzyme is chronically elevated. Recommend you follow-up with your primary care doctor within the next week return if you have further problems. Coding Level of Care Code ED Consulting Services Associate for Michel Hernandez
[2022-11-21 12:50] VITALS: BMI 23.8
--- NOTE | 2022-11-21 12:56 | XR_ITS ---
WS: [id number] K[facility], AP supine view, 11/21/2022 Clinical Data: abd pain Comparison: KUB, 11/20/2022 Findings: No abnormal intraabdominal masses or calcifications are seen. There is no dilatated small bowel or ev idence of obstruction. There is a moderate amount of fecal material in the descending colon and sigmoid colon. There are mon itor leads on the abdomen wall. 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 There are 3 h ip nails in the right femoral neck reducing an old femoral neck fracture. XR/XR KUB portable [id number] Impression: Negative KUB.
[2022-11-21 13:02] VITALS: BP 157/66; PULSE 66; RESP 16; O2SAT 99
[2022-11-21 13:06] LABS: Basophils # 0.1 10^3/uL (0.0-0.1); Basophils % 0.8 %; Eosinophils % 0.5 %; Hematocrit 35.7 % (37.0-47.0); Hemoglobin 11.3 g/dL (11.5-15.3); Lymphocytes # 1.7 10^3/uL (0.8-4.8); Lymphocytes % 27.9 %; Mean Corpuscular HGB Conc 31.7 g/dL (30.0-36.0); Mean Corpuscular Hemoglobin 32.8 pg (28.0-34.0); Mean Corpuscular Volume 103.8 fl (81-99); Mean Platelet Volume 10.7 fL (7.4-10.4); Monocytes # 0.4 10^3/uL (0.2-0.9); Monocytes % 6.6 %; Neutrophils # 3.88 10^3/uL (1.8-7.7); Neutrophils % 63.7 %; Nucleated Red Blood Cells % 0 %; Platelet Count 255 10^3/cmm (130-400); Red Blood Count 3.44 10^6/uL (4.1-5.3); Red Cell Distribution Width 12.6 % (12.1-15.1); White Blood Count 6.1 10^3/uL (4.0-10.0)
[2022-11-21 13:32] VITALS: BP 146/62; PULSE 64; RESP 16; O2SAT 95
[2022-11-21 13:36] LABS: Lactic Sepsis W/Reflex 2.2 mmol/L (0.5-2.2)
[2022-11-21 13:42] LABS: Urine Appearance Clear (CLEAR); Urine Color Yellow (Yellow); pH Urine 5 (5-7)
[2022-11-21 13:43] LABS: Add Urine Microscopic? YES; Bilirubin Urine Neg (Negative); Blood Urine Neg (Negative); Glucose Urine UA Trace (Normal); Ketones Urine 1+ (Negative); Leukocyte Esterase Urine Negative (Negative); Nitrate Urine Negative (Negative); Protein Urine 3+ (Negative); RBC Urine 0-4 /hpf (0-2); Urobilinogen Urine Norm (Negative); WBC Urine 0-4 /hpf (0-5)
[2022-11-21 13:44] LABS: Add Urine Culture? No; Amorphous Sediment Urine 1+ /hpf; Fine Granular Casts Urine RARE /lpf; Hyaline Casts Urine RARE /lpf
[2022-11-21] MEDS: acetaminophen 500 mg Tablet 1000 MG PO (14:00)
[2022-11-21 14:03] LABS: Alanine Aminotransferase 21 U/L (0-33); Albumin Level 3.8 g/dL (3.5-5.2); Alkaline Phosphatase 60 U/L (35-105); Anion Gap 18.6 (5-19); Aspartate Amino Transferase 32 U/L (0-32); Blood Urea Nitrogen 29 mg/dL (8-23); Calcium 8.1 mg/dL (8.5-10.5); Carbon Dioxide 19 mmol/L (22-29); Chloride 104 mmol/L (98-107); Globulin 2.3 g/dL (1.3-4.6); Glucose 238 mg/dL (65-115); Lipase 140 U/L (13-60); Osmolality Calculated 298 mOsm/kg (285-295); Potassium 4.6 mmol/L (3.5-5.1); Sodium 137 mmol/L (136-145); Total Bilirubin 0.4 mg/dL (0.15-1.2); Total Protein 6.1 g/dL (6.6-8.7)
[2022-11-21 15:02] LABS: Reflex Lactate Order REFLEX LACTIC ORDERD
[2022-11-21 15:04] VITALS: BP 141/64; PULSE 67; RESP 20; O2SAT 98
== END 2022-11-21 15:05 | disposition home or self-care (01) ==
PROVIDERS: Emergency Provider Family Medicine; PCP Nurse Practitioner
DX: K59.00 Constipation, unspecified (principal); J43.9 Emphysema, unspecified; I10 Essential (primary) hypertension
CPT/HCPCS: 36415; 74018; 80053; 81001; 83605; 83690; 85025; 99285

== ENCOUNTER 2022-11-24 11:08 | Emergency (ER) | payer MEDICARE, OTHER, SELFPAY ==
[2022-11-24 11:29] VITALS: BP 134/67; PULSE 83; O2SAT 100; BMI 21.6
[2022-11-24 13:19] LABS: Basophils # 0.1 10^3/uL (0.0-0.1); Basophils % 0.7 %; Eosinophils # 0.1 10^3/uL (0.0-0.8); Eosinophils % 0.9 %; Hematocrit 36.3 % (37.0-47.0); Hemoglobin 12.4 g/dL (11.5-15.3); Lymphocytes # 2.5 10^3/uL (0.8-4.8); Lymphocytes % 36.5 %; Mean Corpuscular HGB Conc 34.2 g/dL (30.0-36.0); Mean Corpuscular Hemoglobin 33.3 pg (28.0-34.0); Mean Corpuscular Volume 97.6 fl (81-99); Mean Platelet Volume 10.6 fL (7.4-10.4); Monocytes # 0.4 10^3/uL (0.2-0.9); Monocytes % 6.1 %; Neutrophils # 3.73 10^3/uL (1.8-7.7); Neutrophils % 55.2 %; Nucleated Red Blood Cells % 0 %; Platelet Count 246 10^3/cmm (130-400); Red Blood Count 3.72 10^6/uL (4.1-5.3); Red Cell Distribution Width 12.4 % (12.1-15.1); White Blood Count 6.8 10^3/uL (4.0-10.0)
[2022-11-24 13:53] LABS: Alanine Aminotransferase 17 U/L (0-33); Albumin Level 4.5 g/dL (3.5-5.2); Alkaline Phosphatase 75 U/L (35-105); Anion Gap 23.5 (5-19); Aspartate Amino Transferase 28 U/L (0-32); Blood Urea Nitrogen 19 mg/dL (8-23); Calcium 9.9 mg/dL (8.5-10.5); Carbon Dioxide 17 mmol/L (22-29); Chloride 100 mmol/L (98-107); Globulin 3.4 g/dL (1.3-4.6); Glucose 97 mg/dL (65-115); Osmolality Calculated 284 mOsm/kg (285-295); Potassium 4.5 mmol/L (3.5-5.1); Sodium 136 mmol/L (136-145); Total Bilirubin 0.4 mg/dL (0.15-1.2); Total Protein 7.9 g/dL (6.6-8.7)
[2022-11-24 14:00] VITALS: BP 144/73; RESP 18; O2SAT 100
--- NOTE | 2022-11-24 14:06 | ED_ITS ---
Documented by User: Monster Goyal DO 11/25/22 05:49 HPI - Headache General: Chief Complaint: Headache Stated Complaint: headache, dizzy Time Seen by Provider: 11/24/22 13:49 Source: patient Mode of arrival: ambulatory History of Present Illness: 87-year-old female presents emergency room she is quite anxious she is complaining today of a headache and nearly passing out. It is a little difficu lt to get detailed history with her she is very focused on the headache and the sensation of that she is about to pass out and feels very weak. It seemed to the other day she had a rather similar affect at that time. She does deny any abdominal pain yesterday which is her primary issue previously. She relates some shortness of breath but is difficult to get her to focus on it she does deny chest pain. She has no focal deficits on arrival here. MD elicited complaint: headache Onset (ago): day(s) Location: frontal Severity: moderate Quality & Timing: throbbing Exacerbating factors: sitting/standing Relieving factors: nothing Context: occurred at rest Associated symptoms: Reports chest pain, confusion, lightheadedness, malaise and weakness; Deny cough, diaphoresis, eye pain, eye redness, fever(s), loss of vision, nausea, neck stiffness, numbness, paresthesias, photophobia, pre-syncope, rash, seizures, short of breath, sound sensitivity, syncope, vomiting or other Treatments prior to arrival: none Review of Systems Const: Reports: fatigue and malaise; Denies: fever(s), chills or diaphoresis Eyes: Reports: blurry vision ENMT: Denies: throat pain, ear or mastoid pain, nasal discharge or nasal congestion Card: Reports: chest pain and lightheadedness; Denies: palpitations, irregular heart rhythm, edema, syncope or pre-syncope Resp: Denies: dyspnea, productive cough or non-productive cough GI: Denies: abdominal pain, nausea or vomiting : Denies: flank pain, difficulty voiding, dysuria, urinary frequency or urinary urgency Musc: Denies: neck pain or back pain Skin/Breast: Denies: rash Neuro: Reports: confusion PFSH ED PFSH: Medical History KERI (acute kidney injury) COVID-19 Emphysema lung Headache Hypertension Hypertensive urgency Nondisplaced fracture of neck of left femur Pneumonia due to COVID-19 virus Pulmonary embolism Uncontrolled hypertension Urinary tract infection Surgical History History of repair of hip fracture Postoperative state Social History Smoking and tobacco status: never smoked Second hand smoke exposure: No Smoking risk assessment/counseling performed?: No Alcohol intake: never Desire information about alcohol rehabilitation?: No Counseling given: No Substance/Drug Use: never Desire information about substance/drug rehabilitation?: No Counseling given: No Adopted: No Caregiver/support person: No Lives independently: No Household members: spouse Housing: House Marital status: Number of children: 0 service: No Current occupational status: retired Pets and animals: No Do you think of yourself as: Straight/Heterosexual Current gender identity: Female Physical Exam Const: GENERAL APPEARANCE: cooperative and comfortable ORIENTATION/CONSCIOUSNESS: Yes awake HENMT: COMMON NORMALS: normocephalic, atraumatic and hearing grossly normal bilaterally HEAD & SCALP: normocephalic and atraumatic Eye: DIRECT OPHTHALMOSCOPY: No photophobia Resp: COMMON NORMALS: normal respiratory effort, No retractions, No use of accessory muscles and clear to auscultation bilaterally AUSCULTATION: clear to auscultation bilaterally Cardio: COMMON NORMALS: regular rate, regular rhythm and No murmurs present (Cardio) RATE: regular rate RHYTHM: regular rhythm GI: COMMON NORMALS: Soft to palpation and No hepatosplenomegaly present AUSCULTATION: Yes normoactive bowel sounds PALPATION: Yes Soft to palpation, No Tenderness to palpation present (GI), No Guarding due to palpation present (GI) and Yes No hepatosplenomegaly present Extremity: COMMON NORMALS: normal to inspection, capillary refill normal, no clubbing, cyanosis or edema, no calf tenderness and no pedal edema Skin: COMMON NORMALS: no rashes or lesions noted GENERAL SKIN EXAM: no rashes or lesions noted Course Vital Signs: Vital signs: Vital Signs Pulse Rate 75 11/24/22 18:37 Respiratory Rate 18 11/24/22 18:37 Blood Pressure 144/73 11/24/22 14:00 Pulse Oximetry 98 11/24/22 18:37 Oxygen Delivery Me thod Room Air 11/24/22 16:00 MDM - Headache Medical Decision Making Patient initially presented complaining of headache as the work-up was near completion and went to check on her and she states she noted chest pain. I nitial troponin was done EKGs reviewed. Second Trop is pending, care signed out to Dr. Beck at change of shift. See final notes for diagnosis and disposition. Patient presents here with headache she also complained of some chest pain patient was turned over to me pending 2-hour troponin which is unchanged from initial her other work-up here is normal she is stable for discharge she is to follow-up with PCP and return if worsening. Lab Data 11/24/22 12:55 11/24/22 12:[address] 11/24/22 14:13 IMPRESSION: 1. No acute intracranial hemorrhage or edema. 2. Moderate small vessel ischemic disease and atrophy. Similar to prior studies. Laboratory Results WBC 6.8 10^3/uL (4.0-10.0) 11/24/22 12:55 RBC 3.72 10^6/uL (4.1-5.3) L 11/24/22 12:55 Hgb 12.4 g/dL (11.5-15.3) 11/24/22 12:55 Hct 36.3 % (37.0-47.0) L 11/24/22 12:55 MCV 97.6 fl (81-99) 11/24/22 12:55 MCH 33.3 pg (28.0-34.0) 11/24/22 12:55 MCHC 34.2 g/dL (30.0-36.0) 11/24/22 12:55 RDW 12.4 % (12.1-15.1) 11/24/22 12:55 Plt Count 246 10^3/cmm (130-400) 11/24/22 12:55 MPV 10.6 fL (7.4-10.4) H 11/24/22 12:55 Neut % (Auto) 55.2 % 11/24/22 12:55 Lymph % (Auto) 36.5 % 11/24/22 12:55 [place]ecos % (Auto) 6.1 % 11/24/22 12:55 Eos % (Auto) 0.9 % 11/24/22 12:55 Baso % (Auto) 0.7 % 11/24/22 12:55 Neut # (Auto) 3.73 10^3/uL (1.8-7.7) 11/24/22 12:55 Lymph # (Auto) 2.5 10^3/uL (0.8-4.8) 11/24/22 12:55 [place] # (Auto) 0.4 10^3/uL (0.2-0.9) 11/24/22 12:55 Eos # (Auto) 0.1 10^3/uL (0.0-0.8) 11/24/22 12:55 Baso # (Auto) 0.1 10^3/uL (0.0-0.1) 11/24/22 12:55 Nucleated RBC % (auto) 0 % 11/24/22 12:55 Nucleated RBCs # 0.0 /100WBC 11/24/22 12:55 Sodium 136 mmol/L (136-145) 11/24/22 12:55 Potassium 4.5 mmol/L (3.5-5.1) 11/24/22 12:55 Chloride 100 mmol/L (98-107) 11/24/22 12:55 Carbon Dioxide 17 mmol/L (22-29) L 11/24/22 12:55 Anion Gap 23.5 (5-19) H 11/24/22 12:55 BUN 19 mg/dL (8-23) 11/24/22 12:55 Creatinine 1.6 mg/dL (0.5-0.9) H 11/24/22 12:55 GFR Calculation Not Reportable 11/24/22 12:55 Glucose 97 mg/dL (65-115) 11/24/22 12:55 Calculated Osmolality 284 mOsm/kg (285-295) L 11/24/22 12:55 Calcium 9.9 mg/dL (8.5-10.5) 11/24/22 12:55 Total Bilirubin 0.4 mg/dL (0.15-1.2) 11/24/22 12:55 AST 28 U/L (0-32) 11/24/22 12:55 ALT 17 U/L (0-33) 11/24/22 12:55 Alkaline Phosphatase 75 U/L (35-105) 11/24/22 12:55 Troponin T Baseline 42 ng/L (0-10) H 11/24/22 12:55 Troponin T 120 Minute 34.14 ng/L (0-10) H 11/24/22 16:40 Delta Troponin T -7.86 ABS# (0-10) L 11/24/22 16:40 Total Protein 7.9 g/dL (6.6-8.7) 11/24/22 12:55 Albumin 4.5 g/dL (3.5-5.2) 11/24/22 12:55 Globulin 3.4 g/dL (1.3-4.6) 11/24/22 12:55 Urine Color Yellow (Yellow) 11/24/22 16:15 Urine Appearance Hazy (CLEAR) A 11/24/22 16:15 Urine pH 5 (5-7) 11/24/22 16:15 Ur Specific [place] 1.025 (1.005-1.030) 11/24/22 16:15 Urine Protein 3+ (Negative) H 11/24/22 16:15 Urine Glucose (UA) Norm (Normal) 11/24/22 16:15 Urine Ketones 1+ (Negative) H 11/24/22 16:15 Urine Blood Neg (Negative) 11/24/22 16:15 Urine Nitrate Negative (Negative) 11/24/22 16:15 Urine Bilirubin Neg (Negative) 11/24/22 16:15 Urine Urobilinogen Norm mg/dL (Negative) 11/24/22 16:15 Ur Leukocyte Esterase Negative (Negative) 11/24/22 16:15 Urine RBC None /hpf (0-2) 11/24/22 16:15 Urine WBC 0-4 /hpf (0-5) H 11/24/22 16:15 Ur Squamous Epith Cells 0-4 /hpf (0-5) H 11/24/22 16:15 Amorphous Sediment 3+ /hpf 11/24/22 16:15 Urine Bacteria 1+ /hpf (NONE) H 11/24/22 16:15 Urine Opiates Screen Positive ng/mL (Negative) H 11/24/22 16:15 Ur Barbiturates Screen Negative ng/mL (Negative) 11/24/22 16:15 Ur Phencyclidine Scrn Negative ng/mL (Negative) 11/24/22 16:15 Ur Amphetamines Screen Negative ng/mL (Negative) 11/24/22 16:15 U Benzodiazepines Scrn Negative ng/mL (Negative) 11/24/22 16:15 Urine Cocaine Screen Negative ng/mL (Negative) 11/24/22 16:15 U Marijuana (THC) Screen Negative ng/mL (Negative) 11/24/22 16:15 Discharge Plan Discharge Patient Disposition: Home Clinical Impression: Chest pain Condition: Stable Prescriptions: No Action latanoprost 0.005 % drops 1 drp ophthalmic (eye) QPM Qty: 7.5 5RF Rx Instructions: BOTH EYES timolol maleate 0.5 % drops 1 drp ophthalmic (eye) BID Qty: 15 5RF Rx Instructions: BOTH EYES coenzyme Q10 [CoQ-10] 100 mg Capsule 100 mg PO DAILY hydralazine 50 mg tablet 50 mg PO TID Qty: 90 2RF amlodipine 10 mg tablet 10 mg PO DAILY 30 Days Qty: 30 3RF meclizine 25 mg tablet 25 mg PO BID PRN (Reason: dizziness) 14 Days Qty: 28 0RF ondansetron 4 mg tablet,disintegrating 4 mg PO Q8H PRN (Reason: nausea and vomiting) Qty: 20 0RF Discharge Orders: Discharge ED (Routine); Ordered 11/24/22 Ordered By: Aries Beck Referrals: Dena Bro, COMMERCIAL FISHING VESSEL OPERATORSubhaC [Primary Care Provider] - Discharge Diet: Advance as tolerated Discharge Activity: Resume usual activity Patient Instructions: Chest Pain (ED) Coding Level of Care Code ED Strategic Planning Analyst for Chg Fwd Documented by User: Aries Beck MD 11/24/22 18:05 HPI - Headache General: Chief Complaint: Headache Stated Complaint: headache, dizzy Time Seen by Provider: 11/24/22 13:49 PFSH ED PFSH: Medical History KERI (acute kidney injury) COVID-19 Emphysema lung Headache Hypertension Hypertensive urgency Nondisplaced fracture of neck of left femur Pneumonia due to COVID-19 virus Pulmonary embolism Uncontrolled hypertension Urinary tract infection Surgical History History of repair of hip fracture Postoperative state Social History Smoking and tobacco status: never smoked Second hand smoke exposure: No Smoking risk assessment/counseling performed?: No Alcohol intake: never Desire information about alcohol rehabilitation?: No Counseling given: No Substance/Drug Use: never Desire information about substance/drug rehabilitation?: No Counseling given: No Adopted: No Caregiver/support person: No Lives independently: No Household members: spouse Housing: House Marital status: Number of children: 0 service: No Current occupational status: retired Pets and animals: No Do you think of yourself as: Straight/Heterosexual Current gender identity: Female Course Vital Signs: Vital signs: Vital Signs Pulse Rate 75 11/24/22 18:37 Respiratory Rate 18 11/24/22 18:37 Blood Pressure 144/73 11/24/22 14:00 Pulse Oximetry 98 11/24/22 18:37 Oxygen Delivery Me thod Room Air 11/24/22 16:00 MDM - Headache Medical Decision Making Patient presents here with headache she also complained of some chest pain patient was turned over to me pending 2-hour troponin which is unchanged from initial her other work-up here is normal she is stable for discharge she is to follow-up with PCP and return if worsening. Medical Records I reviewed the patient's medical records. Lab Data I reviewed the patient's lab results. 11/24/22 12:55 11/24/22 12:[address] 11/24/22 14:13 IMPRESSION: 1. No acute intracranial hemorrhage or edema. 2. Moderate small vessel ischemic disease and atrophy. Similar to prior studies. Laboratory Results WBC 6.8 10^3/uL (4.0-10.0) 11/24/22 12:55 RBC 3.72 10^6/uL (4.1-5.3) L 11/24/22 12:55 Hgb 12.4 g/dL (11.5-15.3) 11/24/22 12:55 Hct 36.3 % (37.0-47.0) L 11/24/22 12:55 MCV 97.6 fl (81-99) 11/24/22 12:55 MCH 33.3 pg (28.0-34.0) 11/24/22 12:55 MCHC 34.2 g/dL (30.0-36.0) 11/24/22 12:55 RDW 12.4 % (12.1-15.1) 11/24/22 12:55 Plt Count 246 10^3/cmm (130-400) 11/24/22 12:55 MPV 10.6 fL (7.4-10.4) H 11/24/22 12:55 Neut % (Auto) 55.2 % 11/24/22 12:55 Lymph % (Auto) 36.5 % 11/24/22 12:55 [place] % (Auto) 6.1 % 11/24/22 12:55 Eos % (Auto) 0.9 % 11/24/22 12:55 Baso % (Auto) 0.7 % 11/24/22 12:55 Neut # (Auto) 3.73 10^3/uL (1.8-7.7) 11/24/22 12:55 Lymph # (Auto) 2.5 10^3/uL (0.8-4.8) 11/24/22 12:55 [place] # (Auto) 0.4 10^3/uL (0.2-0.9) 11/24/22 12:55 Eos # (Auto) 0.1 10^3/uL (0.0-0.8) 11/24/22 12:55 Baso # (Auto) 0.1 10^3/uL (0.0-0.1) 11/24/22 12:55 Nucleated RBC % (auto) 0 % 11/24/22 12: Nucleated RBCs # 0.0 /100WBC 11/24/22 12:55 Sodium 136 mmol/L (136-145) 11/24/22 12:55 Potassium 4.5 mmol/L (3.5-5.1) 11/24/22 12:55 Chloride 100 mmol/L (98-107) 11/24/22 12:55 Carbon Dioxide 17 mmol/L (22-29) L 11/24/22 12:55 Anion Gap 23.5 (5-19) H 11/24/22 12:55 BUN 19 mg/dL (8-23) 11/24/22 12:55 Creatinine 1.6 mg/dL (0.5-0.9) H 11/24/22 12:55 GFR Calculation Not Reportable 11/24/22 12:55 Glucose 97 mg/dL (65-115) 11/24/22 12:55 Calculated Osmolality 284 mOsm/kg (285-295) L 11/24/22 12:55 Calcium 9.9 mg/dL (8.5-10.5) 11/24/22 12:55 Total Bilirubin 0.4 mg/dL (0.15-1.2) 11/24/22 12:55 AST 28 U/L (0-32) 11/24/22 12:55 ALT 17 U/L (0-33) 11/24/22 12:55 Alkaline Phosphatase 75 U/L (35-105) 11/24/22 12:55 Troponin T Baseline 42 ng/L (0-10) H 11/24/22 12:55 Troponin T 120 Minute 34.14 ng/L (0-10) H 11/24/22 16:40 Delta Troponin T -7.86 ABS# (0-10) L 11/24/22 16:40 Total Protein 7.9 g/dL (6.6-8.7) 11/24/22 12:55 Albumin 4.5 g/dL (3.5-5.2) 11/24/22 12:55 Globulin 3.4 g/dL (1.3-4.6) 11/24/22 12:55 Urine Color Yellow (Yellow) 11/24/22 16:15 Urine Appearance Hazy (CLEAR) A 11/24/22 16:15 Urine pH 5 (5-7) 11/24/22 16:15 Ur Specific [place] 1.025 (1.005-1.030) 11/24/22 16:15 Urine Protein 3+ (Negative) H 11/24/22 16:15 Urine Glucose (UA) Norm (Normal) 11/24/22 16:15 Urine Ketones 1+ (Negative) H 11/24/22 16:15 Urine Blood Neg (Negative) 11/24/22 16:15 Urine Nitrate Negative (Negative) 11/24/22 16:15 Urine Bilirubin Neg (Negative) 11/24/22 16:15 Urine Urobilinogen Norm mg/dL (Negative) 11/24/22 16:15 Ur Leukocyte Esterase Negative (Negative) 11/24/22 16:15 Urine RBC None /hpf (0-2) 11/24/22 16:15 Urine WBC 0-4 /hpf (0-5) H 11/24/22 16:15 Ur Squamous Epith Cells 0-4 /hpf (0-5) H 11/24/22 16:15 Amorphous Sediment 3+ /hpf 11/24/22 16:15 Urine Bacteria 1+ /hpf (NONE) H 11/24/22 16:15 Urine Opiates Screen Positive ng/mL (Negative) H 11/24/22 16:15 Ur Barbiturates Screen Negative ng/mL (Negative) 11/24/22 16:15 Ur Phencyclidine Scrn Negative ng/mL (Negative) 11/24/22 16:15 Ur Amphetamines Screen Negative ng/mL (Negative) 11/24/22 16:15 U Benzodiazepines Scrn Negative ng/mL (Negative) 11/24/22 16:15 Urine Cocaine Screen Negative ng/mL (Negative) 11/24/22 16:15 U Marijuana (THC) Screen Negative ng/mL (Negative) 11/24/22 16:15 Discharge Plan Discharge Patient Disposition: Home Clinical Impression: Chest pain Condition: Stable Prescriptions: No Action latanoprost 0.005 % drops 1 drp ophthalmic (eye) QPM Qty: 7.5 5RF Rx Instructions: BOTH EYES timolol maleate 0.5 % drops 1 drp ophthalmic (eye) BID Qty: 15 5RF Rx Instructions: BOTH EYES coenzyme Q10 [CoQ-10] 100 mg Capsule 100 mg PO DAILY hydralazine 50 mg tablet 50 mg PO TID Qty: 90 2RF amlodipine 10 mg tablet 10 mg PO DAILY 30 Days Qty: 30 3RF meclizine 25 mg tablet 25 mg PO BID PRN (Reason: dizziness) 14 Days Qty: 28 0RF ondansetron 4 mg tablet,disintegrating 4 mg PO Q8H PRN (Reason: nausea and vomiting) Qty: 20 0RF Discharge Orders: Discharge ED (Routine); Ordered 11/24/22 Ordered By: Aries Beck Referrals: Dena Bro, COMMERCIAL FISHING VESSEL OPERATOR-C [Primary Care Provider] - Discharge Diet: Advance as tolerated Discharge Activity: Resume usual activity Patient Instructions: Chest Pain (ED) Coding Level of Care Code ED Strategic Planning Analyst for Michel Hernandez
--- NOTE | 2022-11-24 14:13 | CT_ITS ---
WS: [id number] CT HEAD NONCONTRAST HISTORY: near syncope, headache TECHNIQUE: Contiguous axial imaging performed through the brain in 2.5 mm imaging. Bone and soft tiss ue windows. Sagittal and coronal reformats reviewed. All CT scans at [facility] use at least one of these dose optimization techniques: automated exposure control; mA and/or kV adjustment per pa tient size (includes targeted exams where dose is matched to clinical indication); or iterative recon struction. DLP: 906.42 mGy.cm COMPARISON: 11/20/2022 No acute intracranial hemorrhage, midline shift or mass effect. Moderate symmetric atrophy. Moderate small vessel ischemic changes within the white matter. No new ar ea of focal sulcal effacement or infarct. Ventricles: Normal size with no hydrocephalus. No inferior displacement of cerebellar tonsils. Paranasal sinuses: As visualized are clear. Mastoid air cells: Well pneumatized. Calvarium and scalp: Skull is intact with no soft tissue edema or swelling. Moderate intracranial calcifications. CT/CT head wo con* [id number] IMPRESSION: 1. No acute intracranial hemorrhage or edema. 2. Moderate small vessel ischemic disease and atrophy. Similar to prior studie s.
[2022-11-24 15:00] VITALS: RESP 16; O2SAT 98
[2022-11-24] MEDS: sodium chloride 0.9% 1,000 ML 999 ML IV (15:08)
[2022-11-24 16:00] VITALS: RESP 16; O2SAT 98
--- NOTE | 2022-11-24 16:25 | ECG_ITS ---
[facility] Test Date: 2022-11-24 Pat Name: Mira Nicholas Department: Room: Gender: Female Scientific Research Manager: : 1935 Requested By: Monster Worley Order Number: [id number] Nguyễn MD: Harjeet Buchanan M.D. Measurements Intervals [place] Rate: 81 P: 46 [place]: 175 QRS: 8 QRSD: 86 T: 64 QT: 372 QTc: 432 Interpretive Statements SINUS RHYTHM Compared to ECG 11/04/2022 18:22:38 No significant changes Poor R wave progression Electronically Signed On 11-25-2022 0:14:53 CDT by Harjeet Buchanan M.D. [id number]
[2022-11-24 16:49] LABS: Troponin(5th) Baseline 42 ng/L (0-10)
[2022-11-24 17:05] LABS: Add Urine Microscopic? YES; Bilirubin Urine Neg (Negative); Blood Urine Neg (Negative); Glucose Urine UA Norm (Normal); Ketones Urine 1+ (Negative); Leukocyte Esterase Urine Negative (Negative); Nitrate Urine Negative (Negative); Protein Urine 3+ (Negative); Specific Gravity, Urine 1.025 (1.005-1.030); Urine Appearance Hazy (CLEAR); Urine Color Yellow (Yellow); Urobilinogen Urine Norm (Negative); pH Urine 5 (5-7)
[2022-11-24 17:06] LABS: Add Urine Culture? No; Amorphous Sediment Urine 3+ /hpf; Bacteria Urine 1+ /hpf; Squamous Epithelial Cell Urine 0-4 /hpf (0-5); WBC Urine 0-4 /hpf (0-5)
[2022-11-24 17:08] LABS: Amphetamines Screen Urine Negative (Negative); Barbiturates Screen Urine Negative (Negative); Benzodiazepines Screen Urine Negative (Negative); Cocaine Screen Urine Negative (Negative); Opiate Screen Urine Positive (Negative); PCP Screen Urine Negative (Negative); THC Screen Urine Negative (Negative)
[2022-11-24 17:51] LABS: Troponin 5 2HR 34.14 ng/L (0-10)
[2022-11-24 17:52] LABS: Troponin 5 2HR Delta -7.86 ABS# (0-10)
[2022-11-24 18:37] VITALS: PULSE 75; RESP 18; O2SAT 98
== END 2022-11-24 18:38 | disposition home or self-care (01) ==
PROVIDERS: Emergency Medicine; Family Medicine; Emergency Provider Emergency Medicine; PCP Nurse Practitioner
DX: R07.9 Chest pain, unspecified (principal); J43.9 Emphysema, unspecified; I10 Essential (primary) hypertension; Z86.711 Personal history of pulmonary embolism
CPT/HCPCS: 36415; 70450; 80053; 80306; 81001; 84484; 85025; 93005; 99285; J7030

== ENCOUNTER → 2023-01-14 11:28 | Outpatient (BNVA) | payer MEDICARE, OTHER, SELFPAY | PROVIDERS: PCP Nurse Practitioner; Visit Provider Podiatrist Foot & Ankle Surgery | DX: I73.9 Peripheral vascular disease, unspecified (principal); L60.8 Other nail disorders; L60.3 Nail dystrophy; Z86.711 Personal history of pulmonary embolism | CPT/HCPCS: 11721 ==

== ENCOUNTER → 2023-02-11 09:10 | Outpatient (BNVA) | payer MEDICARE, OTHER, SELFPAY | PROVIDERS: PCP Nurse Practitioner; Visit Provider Otolaryngology | DX: H61.23 Impacted cerumen, bilateral (principal); H90.0 Conductive hearing loss, bilateral | CPT/HCPCS: 69210; 99202 ==

== ENCOUNTER → 2023-04-22 09:22 | Outpatient (BNVA) | payer MEDICARE, OTHER, SELFPAY | PROVIDERS: PCP Nurse Practitioner; Visit Provider Podiatrist Foot & Ankle Surgery | DX: L60.8 Other nail disorders (principal); L60.3 Nail dystrophy; I73.9 Peripheral vascular disease, unspecified; Z86.711 Personal history of pulmonary embolism | CPT/HCPCS: 11721 ==

== ENCOUNTER 2023-05-22 13:54 | Emergency (ER) | payer MEDICARE, OTHER, SELFPAY ==
[2023-05-22 13:55] VITALS: BP 211/105; PULSE 74; RESP 18; TEMP 36.6; O2SAT 98; BMI 20.5
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
[2023-05-22 14:55] VITALS: BP 232/95
[2023-05-22] MEDS: hyDRALAzine 25 mg Tablet 50 MG PO (15:26)
[2023-05-22] MEDS: amlodipine 10 mg Tablet PO (15:26)
--- NOTE | 2023-05-22 15:58 | ECG_ITS ---
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 Measurements Intervals [place] Rate: 67 P: -9 CO: 185 QRS: -19 QRSD: 81 T: 30 QT: 413 QTc: 438 Interpretive Statements SINUS RHYTHM Compared to ECG 11/24/2022 16:25:33 No significant changes Electronically Signed On 05-22-2023 21:05:22 GAS LEAK TESTER by Harjeet Buchanan M.D. [id number]
[2023-05-22 16:50] VITALS: BP 169/80
== END 2023-05-22 17:03 | disposition home or self-care (01) ==
PROVIDERS: Emergency Provider Physician Assistant; PCP Nurse Practitioner
DX: S20.212A Contusion of left front wall of thorax, initial encounter (principal); J43.9 Emphysema, unspecified; I10 Essential (primary) hypertension; V89.2XXA Person injured in unspecified motor-vehicle accident, traffic, initial encounter
CPT/HCPCS: 71045; 93005; 99284

== ENCOUNTER 2023-05-25 10:57 | Emergency (ER) | payer MEDICARE, OTHER, SELFPAY ==
[2023-05-25 10:58] VITALS: BMI 19.8
[2023-05-25 11:00] VITALS: BP 210/86; PULSE 68; RESP 16; TEMP 37.1; O2SAT 98
--- NOTE | 2023-05-25 11:00 | XR_ITS ---
WS: [id number] Exam: XR chest 1V portable [id number] Date/Time of Exam: 05/25/2023 11:09 AM Reason For Exam: chest pain Comparison 05/22/2023. The lungs are clear and fully expanded. Normal cardiomediastinal silhouette. No pleural effusions. [place] structures are intact. IMPRESSION: 1. No acute cardiopulmonary process.
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
--- NOTE | 2023-05-25 11:01 | ECG_ITS ---
Test Date: 2023-05-25 Pat Name: Mira Nicholas Department: Room: Gender: Female Studio Coordinator: : 1935 Requested By: Cori Burt Order Number: [id number] Nguyễn MD: Maggie Bo M.D. Measurements Intervals [place] Rate: 68 P: 28 CA: 185 QRS: -3 QRSD: 74 T: 45 QT: 405 QTc: 432 Interpretive Statements SINUS RHYTHM Compared to ECG 05/22/2023 15:58:34 No significant changes Electronically Signed On 05-25-2023 18:33:50 RELATIONS LIAISON by Maggie Bo M.D. [id number]
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
[2023-05-25 11:18] LABS: Basophils % 0.6 %; Eosinophils # 0.1 10^3/uL (0.0-0.8); Eosinophils % 1.1 %; Hematocrit 30.8 % (36-47); Lymphocytes # 1.7 10^3/uL (0.8-4.8); Lymphocytes % 26.9 %; Mean Corpuscular HGB Conc 33.1 g/dL (30-55); Mean Corpuscular Hemoglobin 33.2 pg (27-33); Mean Corpuscular Volume 100.3 fl (85-98); Mean Platelet Volume 10.2 fL (7.4-10.4); Monocytes # 0.5 10^3/uL (0.2-0.9); Monocytes % 7.3 %; Neutrophils # 4.04 10^3/uL (1.8-7.7); Neutrophils % 63.8 %; Nucleated Red Blood Cells % 0 %; Platelet Count 176 10^3/cmm (157-399); Red Blood Count 3.07 10^6/uL (3.85-5.65); Red Cell Distribution Width 12.6 % (12.1-15.1); White Blood Count 6.33 10^3/uL (3.29-11.43)
[2023-05-25 11:34] LABS: Alanine Aminotransferase 12 U/L (0-33); Albumin Level 3.9 g/dL (3.5-5.2); Alkaline Phosphatase 71 U/L (35-105); Anion Gap 12.9 (5-19); Aspartate Amino Transferase 20 U/L (0-32); Blood Urea Nitrogen 26 mg/dL (8-23); Calcium 9.1 mg/dL (8.5-10.5); Carbon Dioxide 25 mmol/L (22-29); Chloride 106 mmol/L (98-107); Globulin 2.6 g/dL (1.3-4.6); Glucose 151 mg/dL (65-115); Osmolality Calculated 296 mOsm/kg (285-295); Potassium 4.9 mmol/L (3.5-5.1); Sodium 139 mmol/L (136-145); Total Bilirubin 0.2 mg/dL (0.15-1.2); Total Protein 6.5 g/dL (6.6-8.7)
[2023-05-25 11:37] LABS: Troponin(5th) Baseline 28 ng/L (0-10)
[2023-05-25 11:52] VITALS: BP 207/97; PULSE 76; RESP 25; O2SAT 99
[2023-05-25] MEDS: iohexol 350 mg/mL 500 mL Btl (per mL) IV (11:57)
[2023-05-25] MEDS: labetalol 5 mg/mL SDV 20mL 10 MG IVP (12:10)
[2023-05-25] MEDS: sodium chloride 0.9% 1,000 ML 999 ML IV (12:11)
[2023-05-25 12:23] VITALS: BP 179/97; PULSE 64; RESP 20; O2SAT 99
[2023-05-25] MEDS: hyDRALAzine 20 mg/mL INJ 1 mL 10 MG IVP (12:57)
[2023-05-25] MEDS: amlodipine 10 mg Tablet PO (12:57)
[2023-05-25 13:05] VITALS: BP 166/74; PULSE 75; RESP 19; O2SAT 100
[2023-05-25 13:38] VITALS: BP 155/69; PULSE 69; RESP 19; O2SAT 100
[2023-05-25 13:45] LABS: Troponin 5 2HR 25.15 ng/L (0-10)
[2023-05-25 13:46] LABS: Troponin 5 2HR Delta -2.85 ABS# (0-10)
== END 2023-05-25 13:56 | disposition home or self-care (01) ==
PROVIDERS: Emergency Provider Physician Assistant; PCP Nurse Practitioner
DX: S20.212A Contusion of left front wall of thorax, initial encounter (principal); J43.9 Emphysema, unspecified; I10 Essential (primary) hypertension; V89.2XXA Person injured in unspecified motor-vehicle accident, traffic, initial encounter
CPT/HCPCS: 36415; 71045; 71275; 80053; 84484; 85025; 93005; 96361; 96374; 96375; 99285; J0360; J3490; J7030; Q9967